=== PATIENT | male | born 1940 | race Caucasian/White ===

== ENCOUNTER 2016-09-21 01:26 | Inpatient (IN) | payer MEDICARE, OTHER ==
[~2016-09-21] VITALS: Ht 172.7 cm; Wt 108.1 kg
[2016-09-21] MEDS ORDERED: ALLOPURINOL300 MG PO (02:21)
[2016-09-21] MEDS ORDERED: RIVASTIGMINE4.5 MG PO (02:21)
[2016-09-21] MEDS ORDERED: COUMADIN5 MG PO (02:23)
[2016-09-21] MEDS ORDERED: ESCITALOPRAM OX20 MG PO (02:24)
[2016-09-21] MEDS ORDERED: COREG25 MG PO (02:25)
[2016-09-21] MEDS ORDERED: ATORVASTATIN CA20 MG PO (02:25)
[2016-09-21] MEDS ORDERED: WARFARIN SODIUM5 MG PO (12:07)
[2016-09-21] MEDS ORDERED: VOLTAREN100 GM TOP (12:09)
--- NOTE | 2016-09-21 22:35 | EKG ---
[facility] [address] [facility] [place], [place] [address] Signed Normal sinus rhythm Normal ECG No previous ECGs available Confirmed by GREGG BACON MD ([id number]) on 09/21/2016 10:35:22 PM Electronically Signed By: GREGG BACON MD 09/21/16 2235 PATIENT NAME: ARTUR TOLLIVER Electrocardiogram DATE OF : 38 PHYSICIAN: GREGG BACON MD REPORT #: [id number] REPORT IS CONFIDENTIAL AND NOT TO BE RELEASED WITHOUT AUTHORIZATION
[2016-09-25] MEDS ORDERED: AUGMENTIN 500-1 EACH PO (21:05)
[2017-01-17] MEDS ORDERED: CIPRO500 MG PO (09:26)
== END 2016-09-26 12:35 | disposition home or self-care (01) | DRG 872 ==
LOC: ED 01:26 → MS 03:54
PROVIDERS: ADMIT Internal Medicine
DX: A41.51 Sepsis due to Escherichia coli [E. coli] (principal); I11.0 Hypertensive heart disease with heart failure; I50.9 Heart failure, unspecified; G47.33 Obstructive sleep apnea (adult) (pediatric); E78.5 Hyperlipidemia, unspecified; G31.83 Neurocognitive disorder with Lewy bodies; F02.80 Dementia in other diseases classified elsewhere, unspecified severity, without behavioral disturbance, psychotic disturbance, mood disturbance, and anxiety; F39 Unspecified mood [affective] disorder; Z95.2 Presence of prosthetic heart valve
CPT/HCPCS: 36415; 36600; 71010; 80048; 80053; 81001; 82607; 82728; 82746; 82803; 83540; 83605; 83735; 84100; 84466; 85025; 85045; 85610; 85651; 85730; 86140; 86431; 87040; 87077; 87186; 93005; 93010; 93306; 94660; 94760; 94762; J0690; J2543; J3475; J7030

== ENCOUNTER 2016-11-08 05:17 | Inpatient (IN) | payer MEDICARE, OTHER ==
[~2016-11-08] VITALS: Ht 172.7 cm; Wt 104.7 kg
[~2016-11-08 05:17] MED LIST: ALLOPURINOL300 MG PO; ATORVASTATIN CA20 MG PO; AUGMENTIN 500-1 EACH PO; COREG25 MG PO; COUMADIN5 MG PO; ESCITALOPRAM OX20 MG PO; RIVASTIGMINE4.5 MG PO; VOLTAREN100 GM TOP; WARFARIN SODIUM5 MG PO
--- OUTSIDE RECORDS SUMMARY | 2016-11-08 05:59 | XMS ---
Demographics + + + | Address | [address] | | | [address] [facility] | | | [place] [phone] | + + + | Preferred Language | Unknown | + + + | Marital Status | Unknown | + + + | Judaism Affiliation | Unknown | + + + | Race | Unknown | + + + | Ethnic Group | Unknown | + + + Author + + + | Author | [facility] | + + + | Organization | [facility] | + + + | Address | [address] | | | [place] [address] | + + + | Phone | | + + + Care Team Providers + + + + | Care Real Estate Assistant Name | Role | Phone | + + + + Unavailable | Unavailable | + + + + PROBLEMS +---------+ + + +--------+ + + | Type | Condition | ICD9-CM | [id number] | Onset | Condition | SNOMED | | | | Code | Code | Dates | Status | Code | +---------+ + + +--------+ + + | Problem | Essential | | I10 | | Active | [id number] | | | (primary) | | | | | | | | hypertensi | | | | | | | | on | | | | | | +---------+ + + +--------+ + + | Problem | Hyperlipid | | E78.5 | | Active | [id number] | | | emia | | | | | | +---------+ + + +--------+ + + ALLERGIES Unknown Allergies SOCIAL HISTORY No smoking Hx information available PLAN OF CARE VITAL SIGNS MEDICATIONS Unknown Medications RESULTS No Results PROCEDURES No Known procedures IMMUNIZATIONS No Known Immunizations"
--- OUTSIDE RECORDS SUMMARY | 2016-11-08 05:59 | XMS ---
Demographics + + + | Address | [address] | | | [address] [facility] | | | [place] [address] | + + + | Preferred Language | Unknown | + + + | Marital Status | Unknown | + + + | Methodist Affiliation | Unknown | + + + | Race | Unknown | + + + | Ethnic Group | Unknown | + + + Author + + + | Author | [facility] | + + + | Organization | [facility] | + + + | Address | [address] | | | [place] [address] | + + + | Phone | | + + + Care Team Providers + + + + | Care Morning Show Newscast Producer Name | Role | Phone | + + + + Unavailable | Unavailable | + + + + PROBLEMS +---------+ + + +--------+ + + | Type | Condition | ICD9-CM | [id number] | Onset | Condition | SNOMED | | | | Code | Code | Dates | Status | Code | +---------+ + + +--------+ + + | Problem | Essential | | I10 | | Active | [id number] | | | (primary) | | | | | | | | hypertensi | | | | | | | | on | | | | | | +---------+ + + +--------+ + + | Problem | Hyperlipid | | E78.5 | | Active | [id number] | | | emia | | | | | | +---------+ + + +--------+ + + ALLERGIES + + + + +--------+ | Substance | Reaction | Event Type | Date | Status | + + + + +--------+ | Gentamicin | Unknown | Drug Allergy | Oct, | Active | | Sulfate | | | | | + + + + +--------+ SOCIAL HISTORY No smoking Hx information available PLAN OF CARE + +---------+ | Activity | Details | + +---------+ +---+ | | +---+ + + + | Follow Up | 2 Months Reason:null | + + + VITAL SIGNS + + + + | Height | 64 in | 2016-10-07 | + + + + | Weight | 250 lbs | 2016-10-07 | + + + + | BMI | 42.91 kg/m2 | 2016-10-07 | + + + + | Heart Rate | 58 /min | 2016-10-07 | + + + + | Blood pressure systolic | 129 mm Hg | 2016-10-07 | + + + + | Blood pressure diastolic | 57 mm Hg | 2016-10-07 | + + + + MEDICATIONS + + + + +--------+ + +--------+ | Medicati | Instruct | Dosage | Frequenc | Start | End Date | Duration | Status | | on | ions | | y | Date | | | | + + + + +--------+ + +--------+ | Aspir-81 | | | | | | | Active | + + + + +--------+ + +--------+ | Allopuri | Orally | 1 tablet | 24h | | | | Active | | nol 300 | Once a | | | | | | | | MG | day | | | | | | | + + + + +--------+ + +--------+ | Carvedil | | | | | | | Active | | ol 25 MG | | | | | | | | + + + + +--------+ + +--------+ | Warfarin | | | | | | | Active | | Sodium | | | | | | | | | 5 MG | | | | | | | | + + + + +--------+ + +--------+ | Rivastig | | | | | | | Active | | mine 3 | | | | | | | | | mg | | | | | | | | + + + + +--------+ + +--------+ | Escitalo | | | | | | | Active | | pram | | | | | | | | | Oxalate | | | | | | | | | 10 MG | | | | | | | | + + + + +--------+ + +--------+ | Atorvast | | | | | | | Active | | atin | | | | | | | | | Calcium | | | | | | | | | 20 MG | | | | | | | | + + + + +--------+ + +--------+ RESULTS No Results PROCEDURES No Known procedures IMMUNIZATIONS No Known Immunizations"
--- OUTSIDE RECORDS SUMMARY | 2016-11-08 05:59 | XMS ---
Demographics + + + | Address | Unknown | | | [place] [address] | + + + | Preferred Language | Unknown | + + + | Marital Status | Unknown | + + + | Worship Affiliation | Unknown | + + + | Race | Unknown | + + + | Ethnic Group | Unknown | + + + Author + + + | Author | [facility] | + + + | Organization | [facility] | + + + | Address | [address] | | | [place] [address] | + + + | Phone | | + + + Care Team Providers + + + + | Care Calibration Tester Name | Role | Phone | + + + + Unavailable | Unavailable | + + + + PROBLEMS +---------+ + + +--------+ + + | Type | Condition | ICD9-CM | [id number] | Onset | Condition | SNOMED | | | | Code | Code | Dates | Status | Code | +---------+ + + +--------+ + + | Problem | Essential | | I10 | | Active | [id number] | | | (primary) | | | | | | | | hypertensi | | | | | | | | on | | | | | | +---------+ + + +--------+ + + | Problem | Hyperlipid | | E78.5 | | Active | [id number] | | | emia | | | | | | +---------+ + + +--------+ + + ALLERGIES Unknown Allergies SOCIAL HISTORY No smoking Hx information available PLAN OF CARE VITAL SIGNS MEDICATIONS Unknown Medications RESULTS No Results PROCEDURES No Known procedures IMMUNIZATIONS No Known Immunizations"
--- NOTE | 2016-11-08 08:27 | NUR ---
PT ARRIVED TO ROOM 129 VIA STRETCHER FROM ER. PT TRANSFERRED TO BED WITH 2 PERSON ASSIST. VITAL SIGNS TAKEN AND ASSESSMENT COMPLETED. PT ATE REG DIET WITHOUT PROBLEMS. DR. JOHN IN TO ASSESS PT. IN ROOM.
--- NOTE | 2016-11-08 09:28 | NUR ---
PT UP TO BSC WITH ONE PERSON ASSIST - HAD SMALL SOFT FORMED BM, TRANSFERRED TO BRENDA CHAIR WITH ONE PERSON ASSIST WITH CHAIR ALARM IN PLACE. ORAL CONTRAST 15MLS IN 20 OZ APPLE JUICE GIVEN PER ORDER IN PREPARATION FOR CT SCAN. PT BERT WELL. LAB HERE FOR STAT ORDERS PER DR. JOHN.
--- NOTE | 2016-11-08 10:04 | NUR ---
PROFESSIONAL HOUSING CONSULTANT HERE FOR LEFT LOWER EXTREMITY XRAY.
--- NOTE | 2016-11-08 12:16 | NUR ---
PT REMAINS IN BRENDA CHAIR WITH BED ALARM ON. ASSESSMENT COMPLETED - DENIES C/O AT THIS TIME. FEW FINE CRACKLES HEARD IN RIGHT LUNG BASE. PT ON RA WITH SATS 95%. PT STOOD TO VOID 450 MLS CLEAR YELLOW URINE. PT TRANSFERRED TO CT DEPT VIA BRENDA CHAIR WITH LEVEL VIAL INSPECTOR, Jessica CHEEK FOR CT OF LUNG/ABD/PELVIS.
--- NOTE | 2016-11-08 12:35 | NUR ---
PT RETURNED TO ROOM 129 VIA [facility] CHAIR - BERT CT WELL.
--- NOTE | 2016-11-08 13:17 | NUR ---
Patient up to bathroom, one person standby assist. Patient has a large formed bm and voids large amount to toilet. Patient does own rachel care. Patient back to chair, chair alarm on. Call light in reach. Patient is SOB with activity. Patient states he often feels that way at home.
--- NOTE | 2016-11-08 13:21 | NUR ---
Patient sitting up in chair eating cake.
--- NOTE | 2016-11-08 14:07 | NUR ---
PT SITTING IN CHAIR, WELCOMED ME IN. I HAD VISITED WITH PT'S SON IN [facility] HE WAS LEAVING. ESTELLA SEEMED TO BE HANDLING THIS LATEST HOSPITALIZATION OF HIS DAD APPROPRIATELY-FEELING OPTIMISTIC THAT HE CAN BE DC'D SOON. GOOD VISIT WITH PT, HE REQUESTED PRAYER. WILL FOLLOW NEEDED
[2016-11-08] MEDS ORDERED: ADULT LOW DOSE81 MG PO (15:02)
--- NOTE | 2016-11-08 15:04 | NUR ---
PT AMBULATED TO BATHROOM WITH ONE PERSON ASSIST. VOIDED AND HAD SOFT NONFORMED BM. PT AMBULATED TO BED WITH ASSIST AND ULTRA SOUND TECH HERE FOR 2D ECHO. IN ROOM.
--- NOTE | 2016-11-08 15:14 | NUR ---
MED REC COMPLETE WITH BIMART REFILL HISTORY AND INTERVIEW.
--- NOTE | 2016-11-08 16:29 | NUR ---
PT SITTING IN BRENDA CHAIR VISITING WITH , STATES FEELING COLD, WARM BLANKET GIVEN, PT AFEBRILE. TEMP INCREASED TO 100.5 AFTER A FEW MINUTES.
--- NOTE | 2016-11-08 17:04 | NUR ---
PT NAUSEATED AND MEDICATED WITH ZOFRAN 4MG IV. DR. JOHN NOTIFIED OF INCREASED TEMP 101.2. BLOOD CULTURES ORDERED.
--- NOTE | 2016-11-08 17:36 | EKG ---
[facility] [address] [facility] [place] [address] Signed Normal sinus rhythm Prolonged QT Abnormal ECG When compared with ECG of 21-SEP-2016 01:42, QT has lengthened Confirmed by RAQUEL JOHN MD ([id number]) on 11/08/2016 5:36:06 PM Electronically Signed By: RAQUEL JOHN MD 11/08/16 1736 PATIENT NAME: UNRULYARTUR MAURA Electrocardiogram DATE OF : 38 PHYSICIAN: RAQUEL JOHN MD REPORT #: [id number] REPORT IS CONFIDENTIAL AND NOT TO BE RELEASED WITHOUT AUTHORIZATION
--- NOTE | 2016-11-08 17:37 | NUR ---
MEDICATED WITH TYLENOL 500 MG PO FOR ORAL TEMP 101.2. LAB HERE FOR BLOOD CULTURES X2 SITES. FAMILY IN ROOM. PT STATES FEELING SLIGHTLY BETTER, DENIES CHILLING AT THIS TIME.
--- NOTE | 2016-11-08 17:52 | NUR ---
UP TO BATHROOM WITH ONE PERSON ASSIST. VOIDED UNMEASURABLE AMT. BACK TO BED WITH HOB ELEVATED. VISITING WITH FAMILY. ORAL TEMP 101.4.
--- NOTE | 2016-11-08 19:40 | NUR ---
PT SHIFT REORT RECIVED FROM DAY SHIFT RN. PT LAYING IN BED ASKEED TO GET UP TO BATHROOM. ASSISTED PT TO BATHROOM. PT TOLERATED WELL. OTHER RN ASSISTING WITH CARE WELL. WILL CONTINUE TO MONITOR.
--- NOTE | 2016-11-08 20:00 | NUR ---
AMB TO BR, BERT WELL
--- NOTE | 2016-11-08 21:05 | NUR ---
UP TO CHAIR, FEEL LIKE CAN'T LAY DOWN ANY MORE. DECLINES TO BRUSH TEETH. GIVEN CRACKERS AND DECAF COFFEE.
--- NOTE | 2016-11-08 21:30 | NUR ---
PT SHIFT ASSESSMENT COMPLETED. PT RESTING IN CHAIR ASSISTED BACK TO BED AFTER USING BATHROOM. PT TOLERATED WELL. WILL ENCOURAGE REST AT THIS TIME. BED ALARM ON. CALL LIGHT IN REACH. WILL CONITNUE TO CLSOELY MONITOR.
--- NOTE | 2016-11-08 22:06 | NUR ---
PT RESTING IN BED AT THIS TIME. WILL CONTINUE TO MONITOR.
--- NOTE | 2016-11-08 22:31 | NUR ---
RECHECKED PT TEMP. TEMP IS CURRENTLY 99.5. PT IS RESTING AT THIS TIME. WILL CHECK AGAIN AT MIDNIGHT AND SEE IF IT CONTINUES TO TREND DOWN. WILL GIVE PRN TYLENOL IF NEEDED.
--- NOTE | 2016-11-08 23:15 | NUR ---
PT CALLED TO GET UP TO THE BATHROOM. PT ASSISTED TO THE BATHROOM WITH TEAM ASSEMBLY LINE MACHINE OPERATOR AND BACK TO CHAIR. NO OTHER ISSUES AT THIS TIME. WILL CONTINUE TO MONITOR.
--- NOTE | 2016-11-08 23:45 | NUR ---
PT ASSISTED BACK TO BED WITH 1 PERSON ASSIST. PT TOLERATED WELL.
--- NOTE | 2016-11-09 00:09 | NUR ---
PT CALLED. PT UNSURE WHAT HE NEEDED. PT SAID MAYBE HE NEEDS TO GET UP. EDUCATED PT HE WAS JUST UP A FEW MINUTES AGO AND THAT IT IS THE MIDDLE OF THE NIGHT AND PT REALLY NEEDS SOME REST TO HELP GET BETTER. PT FORGOT HE HAD JUST BEEN UP. OTHER RN IN TO HELP READJUST PT IN BED WITH PILLOW SUPPORT TO SEE IF THIS WILL AID IN PT SLEEP. WILL CONTINUE TO MONITOR. CALL LIGHT IN REACH. BED ALARM ON.
--- NOTE | 2016-11-09 01:00 | NUR ---
CALLED MD TO UPDATE ABOUT PT BEING RESTLESS AND AWAKE SO FAR MOST OF THE NIGHT. PER MD GIVE ONE DOSE 1MG MELATONIN. WILL CONTINUE TO MONITOR.
--- NOTE | 2016-11-09 03:37 | NUR ---
PT RESTING IN CHAIR AT THIS TIME WITH CALL LIGHT IN LAP AND CHAIR ALARM ON. SINCE PT RECIVED MELATONIN. PT HAS BEEN ABLE TO REST BETTER. WILL CONTINUE TO CLOSELY MONITOR AT THIS TIME.
--- NOTE | 2016-11-09 05:14 | NUR ---
PT RESTING IN CHAIR. VITALS DONE. CIRCUS LABORER IN AT BEDSIDE. WILL CONTINUE TO MONTIOR.
--- NOTE | 2016-11-09 06:51 | NUR ---
ASSISTED PT UP TO BATHROOM. PT TOLERATED WELL. PT HAD MED BOWEL MOVEMENT. ASSISTED BACK TO CHAIR. CALL LIGHT IN HAND. CHAIR ALARM ON. WILL CONTINUE TO [facility].
--- NOTE | 2016-11-09 10:25 | NUR ---
PT AWAKE THIS A.M. IN BRENDA CHAIR. PT ATE SMALL BREAKFAST - STATES "I'M NOT TOO HUNGRY". ASSESSMENT COMPLETED, DR. JOHN IN AND TALKED WITH PT ABOUT TRANSFER TO A HIGHER LEVEL OF CARE D/T HIS REOCCURING SEPSIS AND QUESTIONABLE ECHO. SON IN ALSO AND DR. JOHN TALKED WITH HIM. DR. REDD ACCEPTED PT AT [facility], [facility],[place]. PT WILL BE TRANSFERRED VIA [facility]. 2 GM MG RIDER STARTED PER DR. RUFFIN.
--- NOTE | 2016-11-09 11:01 | NUR ---
PT TRANSFERRED TO [facility] [place] [facility].
--- NOTE | 2016-11-09 13:49 | NUR ---
PT BEING TRANSFERRED TO [facility] IN [place]. UNABLE TO FLY TO [place] BECAUSE OF FIRES, AND [facility] HAS NO BED SPACE. PT AND FAMILY SEEM OK WITH THIS. HAD PRAYER WITH PT, KELLY SORIA BY HIS SIDE. GAVE THEM LIFEFLIGHT PACKING LIST AND CALLED CHILD AND ADOLESCENT PSYCHOLOGIST AT [facility] TO FOLLOW UP WITH PT ONCE THERE. KELLY SORIA TRYING TO BE STRONG, BUT I CAN SENSE HE IS STRUGGLING. GOD BLESS THEM
[2017-01-17] MEDS ORDERED: CIPRO500 MG PO (09:26)
== END 2016-11-09 11:00 | disposition short-term general hospital (02) | DRG 314 ==
LOC: ED 05:17 → CCU 07:11
PROVIDERS: ADMIT Internal Medicine
DX: T82.6XXA Infection and inflammatory reaction due to cardiac valve prosthesis, initial encounter (principal); A41.51 Sepsis due to Escherichia coli [E. coli]; I71.02 Dissection of abdominal aorta; I33.0 Acute and subacute infective endocarditis; G47.33 Obstructive sleep apnea (adult) (pediatric); I11.0 Hypertensive heart disease with heart failure; I50.9 Heart failure, unspecified; E78.5 Hyperlipidemia, unspecified; G31.83 Neurocognitive disorder with Lewy bodies; F02.80 Dementia in other diseases classified elsewhere, unspecified severity, without behavioral disturbance, psychotic disturbance, mood disturbance, and anxiety; D48.62 Neoplasm of uncertain behavior of left breast; Y83.1 Surgical operation with implant of artificial internal device as the cause of abnormal reaction of the patient, or of later complication, without mention of misadventure at the time of the procedure; M25.572 Pain in left ankle and joints of left foot
CPT/HCPCS: 36415; 71010; 71260; 73590; 74177; 80053; 81001; 83605; 83735; 85025; 85610; 85730; 86431; 87040; 87077; 87186; 93005; 93010; 93306; J2405; J2543; J3370; J3475; J7030; J7060; J7120; Q9967

== ENCOUNTER 2017-05-17 08:37 | Day surgery (SDC) | payer MEDICARE, OTHER ==
[~2017-05-17] VITALS: Ht 172.7 cm; Wt 108.1 kg
[~2017-05-17 08:37] MED LIST changes: +ADULT LOW DOSE81 MG PO; +AMLODIPINE BESY10 MG PO; +CIPRO500 MG PO; +FISH OIL 1,0001 EAC2 NG; +FUROSEMIDE20 MG PO; +IRON18 MG PO
--- NOTE | 2017-05-17 11:04 | NUR ---
PT HAS APNEIC EPISODES WHILE SLEEPING IN DAY SURGERY. PT WILL WAKE TO RN VOICE AND QUICKLY FALLS BACK TO SLEEP. PT'S SPOUSE IS @ BS. CONTINUOUS PULSE OXIMETER IS IN PLACE. OXYGEN IS REMOVED AND PATIENT DOES DIP DOWN TO 88% MOMENTARILY AND QUICKLY RETURNS TO 98%
--- NOTE | 2017-05-17 11:52 | NUR ---
RAMAZICON GIVEN TO REVERSE THE EFFECTS OF THE VERSED GIVEN BY GLOBAL PRESIDENT. PATIENT WAKES QUICKLY AFTER RAMAZICON IS GIVEN AND HAT AND COAT ARE PUT ON BY HIM AND HE IS DC HOME W/SPOUSE AND VOLUNTEER.
== END 2017-05-17 11:52 | disposition home or self-care (01) ==
LOC: OPS 08:37 → DSVR 08:37 → OPS 09:45 → DS 10:00 → OPS 10:00
PROVIDERS: Ophthalmology
PROC: 08RK3JZ Replacement of Left Lens with Synthetic Substitute, Percutaneous Approach (ICD-10-PCS; principal; 2017-05-17 09:45)
DX: H25.12 Age-related nuclear cataract, left eye (principal); I10 Essential (primary) hypertension; E78.00 Pure hypercholesterolemia, unspecified; M19.90 Unspecified osteoarthritis, unspecified site; F32.9 Major depressive disorder, single episode, unspecified; G47.30 Sleep apnea, unspecified; Z99.89 Dependence on other enabling machines and devices; Z95.2 Presence of prosthetic heart valve; Z98.890 Other specified postprocedural states; Z79.82 Long term (current) use of aspirin; Z79.899 Other long term (current) drug therapy; Z79.01 Long term (current) use of anticoagulants

== ENCOUNTER 2017-11-20 10:06 | Emergency (ER) | payer MEDICARE ==
[~2017-11-20] VITALS: Ht 172.7 cm; Wt 108.1 kg
[2017-11-20] MEDS ORDERED: PRINIVIL5 MG PO (16:43)
--- NOTE | 2017-11-21 19:09 | EKG ---
[facility] [address] [facility] [place] [address] Signed Sinus bradycardia Otherwise normal ECG When compared with ECG of 08-NOV-2016 05:40, Vent. rate has decreased BY 44 BPM QT has shortened Confirmed by NORI AZAR DO ([id number]) on 11/21/2017 7:09:45 PM Electronically Signed By: NORI AZAR DO 11/21/17 1909 PATIENT NAME: CLEESTINELUISARTUR Electrocardiogram DATE OF : 38 PHYSICIAN: NORI AZAR DO REPORT #: [id number] REPORT IS CONFIDENTIAL AND NOT TO BE RELEASED WITHOUT AUTHORIZATION
== END 2017-11-20 16:58 | disposition home or self-care (01) ==
LOC: ED 10:06
DX: R07.89 Other chest pain (principal); M54.6 Pain in thoracic spine; I71.00 Dissection of unspecified site of aorta; N63.0 Unspecified lump in unspecified breast; F03.90 Unspecified dementia, unspecified severity, without behavioral disturbance, psychotic disturbance, mood disturbance, and anxiety; I10 Essential (primary) hypertension; Z79.899 Other long term (current) drug therapy; Z79.01 Long term (current) use of anticoagulants
CPT/HCPCS: 71045; 71275; 74174; 80053; 84484; 85025; 85610; 93005; 93010; 99285; Q9967

== ENCOUNTER 2017-11-24 12:07 | Day surgery (SDC) | payer MEDICARE ==
[~2017-11-24 12:07] MED LIST changes: +PRINIVIL5 MG PO
--- NOTE | 2017-11-24 17:33 | OR ---
[facility] [address] [place], [place] [address] Signed DATE OF OPERATION: 11/24/2017 SURGEON: Maliha Emmanuel MD PREOPERATIVE DIAGNOSES: 1. A 4 cm left breast mass, smooth margins on CT scan imaging. 2. Chronic anticoagulation with Coumadin. 3. Multiple medical problems. POSTOPERATIVE DIAGNOSES: 1. A 4 cm left breast mass, smooth margins on CT scan imaging. 2. Chronic anticoagulation with Coumadin. 3. Multiple medical problems. PROCEDURE(S) PERFORMED: Left breast mass core biopsy (biopsy gun biopsy). ANESTHESIA: 1% lidocaine, local. INDICATIONS: This 77-year-old white man is a patient of Dr. Theodore. He has numerous medical problems including chronic anticoagulation and a prior history of thoracic endograft placement. 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 He has obesity and other issues as well. He has a palpable mass of the left upper outer aspect of the breast and CT scan x2, which has shown the mass to be smooth margined, but distinct from surrounding soft tissue. A biopsy was recommended. Consideration has been made for reversing his anticoagulation, but given his underlying cause for anticoagulation including aortic valve replacement, he would need rather elaborate bridge therapy. I believe that he can tolerate a core biopsy of this lesion without the inconvenience of bridge therapy and with a likely reasonable similar risk of local bleeding or bruising. He and his understands the risks of bleeding, infection, failure of diagnosis, need for additional procedures and so forth, and wished to proceed. FINDINGS: The lesion was palpable and soft, it was at the 2 o'clock position in relation to the nipple. Six core biopsies were obtained. All the tissue was rather soft and I suspect Electronically Signed By: MALIHA EMMANUEL MD 11/24/17 1733 PATIENT NAME: ARTUR TOLLIVER OPERATIVE REPORT DATE OF : 38 REPORT #: [id number] PHYSICIAN: MALIHA EMMANUEL MD PCP: KELVIN THEODORE MD REPORT IS CONFIDENTIAL AND NOT TO BE RELEASED WITHOUT AUTHORIZATION [facility] [address] [place], [place] [address] Signed this lesion is benign. Pathology is pending. DESCRIPTION OF PROCEDURE: In the supine position the left areolar area and bulky tissue of the breast was prepared with a chlorhexidine solution and draped sterilely. A 1% lidocaine was injected locally. A small stab incision was made with an #11 blade, which showed no untoward bleeding. Using a 14-gauge biopsy gun device, multiple core biopsies were taken throughout the lesion as defined by palpation. The parenchyma of the chest wall and lesion were held away from the chest wall itself. The core biopsies were all adequate, they were soft and not typical of breast cancer, particularly. There was no untoward bleeding. Lengthy application of pressure of the biopsy site was undertaken to assure hemostasis. A Band-Aid applied. Blood Loss was minimal. MD JEN Spear/CHER /[id number] cc: Kelvin Theodore MD Copies: KELVIN THEODORE MD ~ Electronically Signed By: MALIHA EMMANUEL MD 11/24/17 1733 PATIENT NAME: ARTUR TOLLIVER OPERATIVE REPORT DATE OF : 38 REPORT #: [id number] PHYSICIAN: MALIHA EMMANUEL MD PCP: KELVIN THEODORE MD REPORT IS CONFIDENTIAL AND NOT TO BE RELEASED WITHOUT AUTHORIZATION
== END 2017-11-24 13:45 | disposition home or self-care (01) ==
LOC: DS 12:07 → EDSTATUS 13:00 → DS 13:00
PROC: 0HBU3ZX Excision of Left Breast, Percutaneous Approach, Diagnostic (ICD-10-PCS; principal; 2017-11-24)
DX: N63.21 Unspecified lump in the left breast, upper outer quadrant (principal); Z79.01 Long term (current) use of anticoagulants

== ENCOUNTER 2017-12-08 04:03 | Emergency (ER) | payer MEDICARE ==
[~2017-12-08] VITALS: Ht 172.7 cm; Wt 110.4 kg
[~2017-12-08 04:03] MED LIST changes: +LISINOPRIL10 MG PO
--- OUTSIDE RECORDS SUMMARY | 2017-12-08 04:08 | XMS ---
PreManage Notification: ARTUR TOLLIVER Security Wound Nurse Events No recent Security Events currently on file CRITERIA MET - [facility] - 2 Visits in 30 Days CARE PROVIDERS Mckinley Rivera MD Treatment Current PHONE: Unknown [facility] Current CARE [facility] PEPPER PHONE: Unknown Quique has no Care Guidelines for this patient. Malika VISIT COUNT (12 MO.) [address] [place] [address] TOTAL 2 NOTE: Visits indicate total known visits. 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
[2017-12-08] MEDS ORDERED: WARFARIN SODIU2.5 MG PO (04:16)
--- NOTE | 2017-12-08 12:29 | NUR ---
PT BROUGHT TO ER HIS IS SCHEDULED TO HAVE SCOPE. CHECKING ON PT AT 'S REQUEST. HE SAYS HE IS MUCH BETTER, AND WANTS SOMETHING TO EAT. PT IS NPO UNTIL DECISION IS MADE CONCERNING POSSIBLE TRANSFER. PT REQUESTED PRAYER, SON ESTELLA IS PRESENT. HE SAID HE WILL MEDICAL CARE EVALUATION SPECIALIST HIS MOTHER AFTER HER SCOPE. WILL CONTINUE TO CHECK ON PT NEEDED
--- NOTE | 2017-12-08 12:33 | NUR ---
PT IS TO GO TO [facility], PT ABLE TO HAVE SOMETHING TO EAT, WAITING ON GROUND TRANSPORT. AND SON BOTH IN RM ASLEEP, PT AWAKE. WILL CONTINUE TO FOLLOW NEEDED
--- NOTE | 2017-12-08 14:39 | EKG ---
[facility] [address] [facility] [address] [facility] [place], [place] [address] Signed Sinus bradycardia Otherwise normal ECG When compared with ECG of 20-NOV-2017 10:11, No significant change was found Confirmed by NORI AZAR DO ([id number]) on 12/08/2017 2:39:14 PM Electronically Signed By: NORI AZAR DO 12/08/17 1439 PATIENT NAME: UNRULYARTUR MAURA Electrocardiogram DATE OF : 38 PHYSICIAN: NORI AZAR DO REPORT #: [id number] REPORT IS CONFIDENTIAL AND NOT TO BE RELEASED WITHOUT AUTHORIZATION
== END 2017-12-08 14:46 | disposition short-term general hospital (02) ==
LOC: ED 04:03
DX: I71.2 Thoracic aortic aneurysm, without rupture (principal); F03.90 Unspecified dementia, unspecified severity, without behavioral disturbance, psychotic disturbance, mood disturbance, and anxiety; I10 Essential (primary) hypertension; F17.200 Nicotine dependence, unspecified, uncomplicated; Z88.8 Allergy status to other drugs, medicaments and biological substances; Z79.899 Other long term (current) drug therapy
CPT/HCPCS: 71045; 71260; 76705; 80053; 84484; 85025; 85610; 93005; 93010; 96374; 96375; 99285; 99406; J2270; J2405; J2550; Q9967

== ENCOUNTER 2019-01-29 15:23 | Observation (INO) | payer MEDICARE, OTHER ==
[~2019-01-29] VITALS: Ht 172.7 cm; Wt 107.5 kg
--- OUTSIDE RECORDS SUMMARY | ~2019-01-29 | XMS | Encounter Summary ---
Demographics + + + | Address | [address] | | | [place] [address] | + + + | Home Phone | | + + + | Preferred Language | Unknown | + + + | Marital Status | | + + + | Scientologist Affiliation | Unknown | + + + | Race | Unknown | + + + | Ethnic Group | Unknown | + + + Author + + + | Author | [facility] | | | and [place] | + + + | Organization | [facility] | | | and [place] | + + + | Address | Unknown | + + + | Phone | Unavailable | + + + Support + + +---------+ + | Name | Relationship | Address | Phone | + + +---------+ + | Ruby Loving | ECON | Unknown | | + + +---------+ + Care Team Providers + +------+ + | Care Floor Service Worker Spring Name | Role | Phone | + +------+ + | Kelvin Theodore MD | PCP | | + +------+ + Encounter Details +--------+ + + + + | Date | Type | Department | Care Team | Description | +--------+ + + + + | 04/17/ | Orders Only | [facility] | Conversion | | | 2018 | | CONVERSION DEP 888 | Transaction, | | | | | [facility]ARR [facility] | Provider Unknown | | | | | TIMI BUCKNER | [phone] | | | | | [phone] | | | | | | [phone] | | | +--------+ + + + + Social History + +-------+ +--------+------+ | Tobacco Use | Types | Packs/Day | Years | Date | | | | | Used | | + +-------+ +--------+------+ | Never Assessed | | | | | + +-------+ +--------+------+ + + + | Sex Assigned at | Date Recorded | | | | + + + | Not on file | | + + + + + + + | Job Start Date | Occupation | Industry | + + + + | Not on file | Not on file | Not on file | + + + + + + + + | Travel History | Travel Start | Travel End | + + + + + + | No recent travel history available. | + + documented as of this encounter Plan of Treatment +--------+---------+ + + + | Date | Type | Specialty | Care Team | Description | +--------+---------+ + + + | 05/14/ | Office | Cardiology | Marcin Lyon, | | | 2019 | Visit | | MD Tariq HARRIS | | | | | | [place] | | | | | | [phone] | | | | | | | | +--------+---------+ + + + documented as of this encounter Visit Diagnoses Not on filedocumented in this encounter"
--- OUTSIDE RECORDS SUMMARY | ~2019-01-29 | XMS | Encounter Summary ---
Demographics + + + | Address | [address] | | | [place] [address] | + + + | Home Phone | | + + + | Preferred Language | Unknown | + + + | Marital Status | | + + + | Alevism Affiliation | Unknown | + + + | Race | Unknown | + + + | Ethnic Group | Unknown | + + + Author + + + | Author | [facility] | | | and [place] | + + + | Organization | [facility] | | [...] Team Providers + +------+ + | Care Taxi Proprietor Name | Role | Phone | + [...] | | | | [place] | [phone] | | | | | [address] | | | | | | [phone] | | | +--------+ + + + [...] | | | | | [place] | | | | | | [address] | | | | | | | | +--------+---------+ + + + documented as of this encounter Visit Diagnoses Not on filedocumented in this encounter"
--- OUTSIDE RECORDS SUMMARY | ~2019-01-29 | XMS | Clinical Summary ---
Demographics + + + | Address | [address] | | | [place] [address] | + + + | Home Phone | | + + + | Preferred Language | Unknown | + + + | Marital Status | | + + + | Pentecostal Affiliation | Unknown | + + + | Race | Unknown | + + + | Ethnic Group | Unknown | + + + Author + + + | Author | [facility] | | | and [place] | + + + | Organization | [facility] | | | and [place] | + + + | Address | Unknown | + + + | Phone | Unavailable | + + + Support + + +---------+ + | Name | Relationship | Address | Phone | + + +---------+ + | Ruby Fabienne | ECON | Unknown | | + + +---------+ + Care Team Providers + +------+ + | Care Assembler Erector Name | Role | Phone | + +------+ + | Kelvin Theodore MD | PCP | | + +------+ + Allergies + + + + + + | Active Allergy | Reactions | Severity | Noted | Comments | | | | | Date | | + + + + + + | Cephalexin | Hives | | 11/15/19 | | | | | | 19 | | + + + + + + | Gentamicin | Hives | High | 12/20/20 | | | | | | 17 | | + + + + + + Medications + + + +---------+------+------+-------+ | Medication | Sig | Dispensed | Refills | Star | End | Statu | | | | | | t | Date | s | | | | | | Date | | | + + + +---------+------+------+-------+ | IRON PO | Take 28 mg by mouth | | 0 | 12/2 | | Activ | | | daily. | | | 0/20 | | e | | | | | | 17 | | | + + + +---------+------+------+-------+ | Probiotic Product | Take 1 tablet by | | 0 | 12/2 | | Activ | | (PROBIOTIC DAILY PO) | mouth daily. | | | 0/20 | | e | | | | | | 17 | | | + + + +---------+------+------+-------+ | aspirin 81 MG | Take 81 mg by mouth | | 0 | 12/2 | | Activ | | tablet | daily. | | | 0/20 | | e | | | | | | 17 | | | + + + +---------+------+------+-------+ | allopurinol | Take 300 mg by mouth | | 0 | 12/2 | | Activ | | (ZYLOPRIM) 300 mg | daily. | | | 0/20 | | e | | tablet | | | | 17 | | | + + + +---------+------+------+-------+ | warfarin | Take 5 mg by mouth | | 0 | 12/2 | | Activ | | (COUMADIN) 5 mg | daily. | | | 0/20 | | e | | tablet | | | | 17 | | | + + + +---------+------+------+-------+ | rivastigmine | Take 4.5 mg by mouth | | 0 | 12/2 | | Activ | | (EXELON) 4.5 MG | 2 (two) times | | | 0/20 | | e | | capsule | daily. | | | 17 | | | + + + +---------+------+------+-------+ | atorvaSTATin | Take 20 mg by mouth | | 0 | 12/2 | | Activ | | (LIPITOR) 20 mg | daily. | | | 0/20 | | e | | tablet | | | | 17 | | | + + + +---------+------+------+-------+ | carvedilol (COREG) | Take 12.5 mg by | | 0 | 12/2 | | Activ | | 25 mg tablet | mouth 2 (two) times | | | 0/20 | | e | | | daily with meals. | | | 17 | | | + + + +---------+------+------+-------+ | escitalopram | Take 10 mg by mouth | | 0 | 02/1 | | Activ | | (LEXAPRO) 10 mg | daily. | | | 2/20 | | e | | tablet | | | | 18 | | | + + + +---------+------+------+-------+ | finasteride | Take 5 mg by mouth | | 0 | 08/1 | | Activ | | (PROSCAR) 5 mg | daily. | | | 3/20 | | e | | tablet | | | | 19 | | | + + + +---------+------+------+-------+ | lisinopril | Take 20 mg by mouth | | 0 | | | Activ | | (PRINIVIL, ZESTRIL) | 2 times daily. | | | | | e | | 20 mg tablet | | | | | | | + + + +---------+------+------+-------+ | famotidine | Take 40 mg by mouth | | 0 | | | Activ | | (PEPCID) 40 MG | Daily. | | | | | e | | tablet | | | | | | | + + + +---------+------+------+-------+ Active Problems + + + | Problem | Noted Date | + + + | Dissection of thoracoabdominal aorta | 12/11/2017 | + + + + + | Overview: Last Assessment & Plan: A: h/o type A aortic | | dissection s/p repair and aortic valve replacement with a | | mechanical valve in 2006. Stable type B aortic dissection | | extending from the mid arch to aortic bifurcation, stable. P: | | Continue to control BP and follow. | + + + + + | History of dissecting abdominal aortic aneurysm repair | 02/22/2017 | + + + + + | Overview: Overview: | | With chronic dissection monitored by serial CT scans | + + + + + | Status post mechanical aortic valve replacement | 02/22/2017 | + + + | Morbid obesity | 02/22/2017 | + + + | Essential hypertension | 06/26/2015 | + + + | LUBNA on CPAP | 12/15/2014 | + + + Encounters +--------+ + + + + | Date | Type | Specialty | Care Team | Description | +--------+ + + + + | 11/14/ | Office | Cardiology | Marcin Lyon, | Dissection of | | 2019 | Visit | | MD | thoracoabdominal | | | | | | aorta (HCC) (Primary | | | | | | Dx); Essential | | | | | | hypertension; Status | | | | | | post mechanical | | | | | | aortic valve | | | | | | replacement; Morbid | | | | | | obesity (HCC); LUBNA | | | | | | on CPAP | +--------+ + + + + | 10/29/ | Telephone | Infectious Diseases | Kenny Garcia DO | Coordination Of Care | | 2018 | | | | (Dr. Tejada) | +--------+ + + + + from Last 3 Months Immunizations + + + + | Name | Administration Dates | Next Due | + + + + | PNEUMOCOCCAL PCV7 | 03/11/2014 | | | (PED) | | | + + + + | PNEUMOCOCCAL | 08/26/2014, 03/06/2005 | | | POLYSACCHARIDE | | | | 23-VALENT (PPSV23) | | | + + + + | TDAP, (ADOL/ADULT) | 08/11/2015, 01/20/2014 | | + + + + Family History + + +------+ + | Medical History | Relation | Name | Comments | + + +------+ + | Coronary artery | Mother | | | | disease | | | | + + +------+ + + +------+ + + | Relation | Name | Status | Comments | + +------+ + + | Father | | | [place] | | | | (Age | | | | | 73) | | + +------+ + + | Mother | | | hx of bypass | | | | (Age | | | | | 75) | | + +------+ + + | Mother | | | | + +------+ + + Social History + +-------+ +--------+------+ | Tobacco Use | Types | Packs/Day | Years | Date | | | | | Used | | + +-------+ +--------+------+ | Never Smoker | | | | | + +-------+ +--------+------+ + +---+---+---+ | Smokeless Tobacco: | | | | | Current User | | | | + +---+---+---+ + + +---------+ + | Alcohol Use | Drinks/Week | oz/Week | Comments | + + +---------+ + | Never | | | | + + +---------+ + + + + + | Alcohol Habits | Answer | Date Recorded | + + + + | How often do you have a drink containing | Never | 11/14/2018 | | alcohol? | | | + + + + | How many drinks containing alcohol do you | Not asked | | | have on a typical day when you are | | | | drinking? | | | + + + + | How often do you have six or more drinks on | Not asked | | | one occasion? | | | + + + + + + + | Sex Assigned at [...] recent travel history available. | + + Last Filed Vital Signs + + + + + | Vital Sign | Reading | Time Taken | Comments | + + + + + | Blood Pressure | 120/44 | 11/14/2018 9:35 AM | | | | | PDT | | + + + + + | Pulse | 58 | 11/14/2018 9:35 AM | | | | | PDT | | + + + + + | Temperature | 37.4 C (99.4 F) | 10/16/2018 3:05 PM | | | | | PDT | | + + + + + | Respiratory Rate | 16 | 10/16/2018 3:05 PM | | | | | PDT | | + + + + + | Oxygen Saturation | 94% | 11/14/2018 9:35 AM | | | | | PDT | | + + + + + | Inhaled Oxygen | - | - | | | Concentration | | | | + + + + + | Weight | 109.4 kg (241 lb 1.6 | 11/14/2018 9:35 AM | | | | oz) | PDT | | + + + + + | Height | 172.7 cm (5' 8") | 05/09/2018 11:19 AM | | | | | PST | | + + + + + | Body Mass Index | 36.66 | 05/09/2018 11:19 AM | | | | | PST | | + + + + + Plan of Treatment +--------+---------+ + + + | Date | Type | Specialty | Care Team | Description | +--------+---------+ + + + | 05/14/ Office | Cardiology | Marcin Lyon, | | | 2019 | Visit | | MD Tariq [place] | | | | | | [place], [place] | | | | | | [address] | | | | | | | | +--------+---------+ + + + + + + + + | Health Maintenance | Due Date | Last Done | Comments | + + + + + | Vaccine: Zoster (1 | | | | | of 2) | 0 | | | + + + + + | Vaccine: | | 08/26/2014, 03/06/2005 | | | Pneumococcal 65+ (2 | 6 | | | | of 2 - PCV13) | | | | + + + + + | Adult Annual | | | | | Wellness Visit | 9 | | | + + + + + | Vaccine: Influenza | | | | | (#1) | 9 | | | + + + + + | Vaccine: | | 08/11/2015, 01/20/2014 | | | Dtap/Tdap/Td (3 - | 6 | | | | Td) | | | | + + + + + Results Not on filefrom Last 3 Months Insurance + +--------+ +--------+ +---------+--------+ | Payer | Benefi | Subscriber | Effect | Phone | Address | Type | | | t Plan | ID | miguel angel | | | | | | / | | Dates | | | | | | Group | | | | | | + +--------+ +--------+ +---------+--------+ | MEDICARE | MEDICA | [id number] | 04/06/19 | [phone] | | Medica | | | RE | | 05-Pre | 5 | | re | | | PART A | | sent | | | | | | AND B | | | | | | + +--------+ +--------+ +---------+--------+ | [employer] | [employer] | [id number] | 06/05/19 | | | Indemn | | | GARZA | | 18-Pre | | | ity | | | LIFE | | sent | | | | | | MDCR | | | | | | | | SUPPL | | | | | | + +--------+ +--------+ +---------+--------+ + +--------+ +--------+ + + | Guarantor Name | Accoun | Relation to | Date | Phone | Billing Address | | | t Type | Patient | of | | | | | | | | | | + +--------+ +--------+ + + | Daniel Loving | Person | 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
--- OUTSIDE RECORDS SUMMARY | ~2019-01-29 | XMS | Encounter Summary ---
Demographics + + + | Address | [address] | | | [place] [address] | + + + | Home Phone | | + + + | Preferred Language | Unknown | + + + | Marital Status | | + + + | Samaritan Affiliation | Unknown | + + + | Race | Unknown | + + + | Ethnic Group | Unknown | + + + Author + + + | Author | [facility] | | | and [place] | + + + | Organization | [facility] | | | [...] Team Providers + +------+ + | Care Primer Inspector Name | Role | Phone | + +------+ + | Kelvin Theodore MD | PCP | | + +------+ + Encounter Details +--------+ + + + + | Date | Type | Department | Care Team | Description | +--------+ + + + + | 04/17/ | Orders Only | [facility] | Conversion | | | 2018 | | INFECTIOUS DISEASE | Transaction, | | | | | [address] | Provider Unknown | | | | | [place] | [phone] | | | | | [address] | | | | | | [phone] | | | +--------+ + + + [...] [place] | | | | | | [place] | | | | | | [address] | | | | | | | | +--------+---------+ + + + documented as of this encounter Procedures + +--------+ + + + | Procedure Name | Priori | Date/Time | Associated Diagnosis | Comments | | | ty | | | | + +--------+ + + + | CULTURE, BLOOD, 2ND | Routin | 04/17/2017 | | Results for this | | SPECIMEN (NON-ORD) | e | 12:00 AM | | procedure are in the | | | | PST | | results section. | + +--------+ + + + | CULTURE, BLOOD | Routin | 04/17/2017 | | Results for this | | | e | 12:00 AM | | procedure are in the | | | | PST | | results section. | + +--------+ + + + documented in this encounter Results Culture, Blood, 2nd Specimen (04/17/2017 12:00 AM PST) + + | Specimen | + + | Blood specimen | | (specimen) | + + + + + | Narrative | Performed At | + + + | Blood Culture, Routine | EXTERNAL LAB | + + + + +---------+ + + | Performing | Address | City/State/Zipcode | Phone Number | | Organization | | | | + +---------+ + + | EXTERNAL LAB | | | | + +---------+ + + Culture, Blood (04/17/2017 12:00 AM PST) + + | Specimen | + + | Blood specimen | | (specimen) | + + + + + | Narrative | Performed At | + + + | Blood Culture, Routine | EXTERNAL LAB | + + + + +---------+ + + | Performing | Address | City/State/Zipcode | Phone Number | | Organization | | | | + +---------+ + + | EXTERNAL LAB | | | | + +---------+ + + documented in this encounter Visit Diagnoses Not on filedocumented in this encounter"
--- OUTSIDE RECORDS SUMMARY | ~2019-01-29 | XMS | Clinical Summary ---
Demographics + + + | Address | [address] | | | [place] [address] | + + + | Home Phone | | + + + | Preferred Language | Unknown | + + + | Marital Status | | + + + | Moravian Affiliation | Unknown | + + + | Race | Unknown | + + + | Ethnic Group | Unknown | + + + Author + + + | Author | [facility] | | | and [place] | + + + | Organization | [facility] | | | [...] Team Providers + +------+ + | Care Jitney Driver Name | Role | Phone | + [...] + + | Father | | | [place] | | | | (Age | | [...] | | | | | [place], [place] | | | | | | [address] | | | | | | | [...] +--------+ +---------+--------+ | MEDICARE | MED[employer] | [id number] | 04/06/19 | [phone] | | Medica | | | RE | | 05-Pre | 5 | | re | | | PART A | | sent | | | | | | AND B | | | | | | + +--------+ +--------+ +---------+--------+ | [employer] | [employer] | [id number] | 06/05/19 | | | Indemn | [...] | [birth year] | | [address]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
--- OUTSIDE RECORDS SUMMARY | ~2019-01-29 | XMS | Encounter Summary ---
Demographics + + + | Address | [address] | | | [place] [address] | + + + | Home Phone | | + + + | Preferred Language | Unknown | + + + | Marital Status | | + + + | Pentecostalism Affiliation | Unknown | + + + | Race | Unknown | + + + | Ethnic Group | Unknown | + + + Author + + + | Author | [facility] | | | and [place] | + + + | Organization | [facility] | | | [...] Team Providers + +------+ + | Care Banana Carrier Name | Role | Phone | + +------+ + | Kelvin Theodore MD | PCP | | + +------+ + Reason for Visit + + + | Reason | Comments | + + + | Follow-up | 6 mo | + + + Encounter Details +--------+---------+ + + + | Date | Type | Department | Care Team | Description | +--------+---------+ + + + | 11/14/ | Office | [facility] | Marcin Jon, | Dissection of | | 2019 | Visit | [facility] | [address] | thoracoabdominal | | | | [address] | [place], [place] | aorta (HCC) (Primary | | | | [address] [place] | [id number] | Dx); Essential | | | | [place] | | hypertension; Status | | | | [address] | | post mechanical | | | | [phone] | | aortic valve | | | | | | replacement; Morbid | | | | | | obesity (HCC); LUBNA | | | | | | on CPAP | +--------+---------+ + + + Social History + +-------+ [...] + + documented as of this encounter Last Filed Vital Signs + + + [...] + + + + | Temperature | - | - | | + + + + + | Respiratory Rate | - | - | | + + + + + [...] + + + + | Height | - | - | | + + + + + | Body Mass Index | 36.66 | 05/09/2018 11:19 AM | | | | | PST | | + + + + + documented in this encounter Progress Notes Marcin Jon MD - 11/14/2018 9:45 AM PDTFormatting of this note might be different f rom the original. Date of visit: 11/14/2018 Primary Care Physician: Kelvin Theodore MD CHIEF COMPLAINT: Chief Complaint Patient presents with Follow-up 6 mo HISTORY OF PRESENT ILLNESS: Daniel is 78 y.o. here for follow-up visit. Denies any chest pain or shortness of breath continues to modestly active without cardiac l imitation. Weight has been stable no lower extremity edema or orthopnea. Had another bout of infection, admitted to [facility] on 29 September 2018, transfer red to [facility] in [place]. Had gram-negative bacteremia that was treated with antibiot ics. Source was thought to be gastrointestinal. Previously evaluated in [facility] in Jan 2018 secondary to recurrent upper right quadrant and chest pain pressure. Was taken to [facility] where he was found to have cholelithiasis and cholecystiti s, he did have cholecystectomy. His surgery was complicated with GI bleed and he had to have blood transfusion. Also he had to have ERCP, bile duct stenting and removal. Overall he made reasonable recovery. Denies any recurrent symptoms. In November 2016 had perforated bowel and ended with Escherichia coli and Enterobacter carolann teremia. Was treated with IV antibiotics with a PICC line. At this time denies any fever or chills. Has shortness of breath on modest exertion. Has history of ascending aorta aneurysm and dissection which was repaired with mechanical a ortic valve replacement in 2006. History of hypertension and sleep apnea on CPAP. Past medical history, SH, FH, and medications were reviewed in the chart. Medications: Outpatient Encounter Medications as of 11/14/2018 Medication Sig Dispense Refill allopurinol (ZYLOPRIM) 300 mg tablet Take 300 mg by mouth daily. aspirin 81 MG tablet Take 81 mg by mouth daily. atorvaSTATin (LIPITOR) 20 mg tablet Take 20 mg by mouth daily. carvedilol (COREG) 25 mg tablet Take 12.5 mg by mouth 2 (two) times daily with meals. escitalopram (LEXAPRO) 10 mg tablet Take 10 mg by mouth daily. famotidine (PEPCID) 40 MG tablet Take 40 mg by mouth Daily. finasteride (PROSCAR) 5 mg tablet Take 5 mg by mouth daily. IRON PO Take 28 mg by mouth daily. [DISCONTINUED] lisinopril (PRINIVIL, ZESTRIL) 10 mg tablet TAKE ONE TABLET BY MOUTH RIN DAY (Patient not taking: Reported on 11/14/2018) 60 tablet 2 lisinopril (PRINIVIL, ZESTRIL) 20 mg tablet Take 20 mg by mouth 2 times daily. Probiotic Product (PROBIOTIC DAILY PO) Take 1 tablet by mouth daily. rivastigmine (EXELON) 4.5 MG capsule Take 4.5 mg by mouth 2 (two) times daily. warfarin (COUMADIN) 5 mg tablet Take 5 mg by mouth daily. No facility-administered encounter medications on file as of 11/14/2018. Allergies Allergies Allergen Reactions Gentamicin Hives Cephalexin Hives REVIEW OF SYSTEMS: Constitutional: Positive for fatigue. No fever, chills, and rigors. No report of weight ch luciano. HEENT: Negative for nosebleeds, ear discharge, nasal congestion or soar throat. Eyes: Negative for visual disturbance, redness, or secretion. Respiratory: Negative for cough, sputum production, hemoptysis, wheezing. Cardiovascular: As HPI. Gastrointestinal: Negative for nausea, vomiting, diarrhea, abdominal pain and blood in stoo l. Genitourinary: Negative for dysuria or hematuria. Musculoskeletal: Chronic arthritic pain. Skin: Negative for rash. Neurological: Negative for dizziness. No numbness. No recent falls. No slurred speech. Hematological: No significant bruising. Psychiatric/Behavioral: No depression or anxiety. PHYSICAL EXAM Vital Signs: BP 120/44 | Pulse 58 | Wt 109.4 kg (241 lb 1.6 oz) | SpO2 94% | BMI 36.66 kg/m GENERAL APPEARANCE: Alert, oriented, cooperative, no distress, appears stated age. HEENT: Extraocular movements were intact. No jaundice. Pupiles round and reactive. NECK: No JVD, lymphadenopathy. Carotid upstrokes normal. No carotid bruit heard. CARDIAC: Regular rhythm and rate. There is normal S1 and S2. No galop. No murmur. CHEST: Normal bilateral symmetrical chest excursion.ackles or wheezing. No evidence of dull ness. ABDOMEN: Soft.No tenderness or guarding. No palpable organs. Active bowel sounds. EXTREMITIES: No lower extremities edema, cyanosis or clubbing. NEURO: Alert and oriented times three with no focal deficit. Cranial nerves are grossly no rmal. SKIN: Warm and dry. No rash. Psych: Normal affect and mood. DATA 09/29/2018 WBC 7.0, hemoglobin 12.6, platelets 124, sodium 136, potassium 4.0, chloride 102, bicarb 26 , BUN 21, creatinine 1.09. GFR 65, lactic acid 1.3, calcium 9.3. AST 21, ALT 22, alk phos 116. 04/20/2018 WBC 4.9, hemoglobin 11.0, platelets 167, MCV 77.6. Cholesterol 92, HDL 29, LDL 45, triglyce rides 88. AST 15, AST 16, alk phos 137, sodium 137, potassium 3.9, chloride 103, bicarbonate 27, BUN 18, creatinine 0.79. No results found for: NA, K, CO2, BUN, LABCREA, CALCIUM, MG No results found for: WBC, HGB, HCT, MCV No results found for: CHOL, TRIG, HDL, LDLEX, GLUF, TSH EK11/20/2017 From [facility] showed sinus bradycardia otherwise normal EKG. Last Echo: 10/03/2018 Reported from [facility] in [place]. Normal LV size and function EF 70%. Moder ate left atrial enlargement. Mechanical aortic valve and placed with a mean gradient of 15 mmHg. Reported area which is likely reliable 1.06 cm. Trace perivalvular leak mild pulmonary hyp ertension. 11/08/2016 Reported as normal LV size and hyperdynamic systolic function. Mild left ventricular hypert rophy. EF more than 70%. Mechanical aortic valve with mean gradient of 18 mmHg. Previous echo and September 2016 reported mean gradient of 14 mmHg. Echo 11/10/2016 Reported as Normal LV size with moderate left ventricular hypertrophy EF 65%. Mildly dilate d RV with normal systolic function. Mechanical aortic valve with normal function. HENRY 11/11/2016 Reported with normal systolic function EF 55-60%. Mechanical aortic valve was seated with m ild perivalvular regurgitation. Mild MR and mild TR. Last stress test: Last cath: Carotid US: AAA screening: Lower extremity US: OP:2006 Dissection of the aorta status post repair with AVR [address] [facility] mechanical valve[address] Chest 04/04/2018 [facility] dissection that begins beyond innominate artery the proximal arch that continues andrew n to the aortic bifurcation. Dissected or temperatures 50 mm distal to the arch. Proximal descending 44 mm. 11/20/2017 Compared to November 2016. Chronic endograft repair previous type A dissection. Stable at proximal descending aorta me asuring 5.6 cm. 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 Dissection terminates at the level of the iliac bifurcations. ASSESSMENT & PLAN Patient is 78 y.o. with complex past medical history and the following medical problems. 1. History of type A dissection extending to the aortic bifurcation stable from previous . Follows up with cardiothoracic surgery in [place]. 2. Hypertension controlled blood pressure. 3. Recurrent bacteremia 4. Asymptomatic bradycardia. 5. Recurrent bacteremia, gram-negative bacteria. 6. History of aortic dissection states post repair and mechanical aortic involvement replac ement. 7. Obstructive sleep apnea on CPAP. 8. Obesity. 9. Microcytic hypochromic anemia Recommendations: Reviewed records from recent hospitalization. CT of the chest stable measurement however dissection includes left renal artery. At this time will continue with anticoagulation with warfarin. Continue with carvedilol, statin therapy. Carvedilol currently 12.5 mg bid. Lisinopril currently 20 mg twice daily. Continue with aspirin given the mechanical aortic valve. We will continue with CT scan annual evaluations. We will continue to follow-up with [facility] in [facility]. Discussed in length with the patient weight loss and blood pressure monitoring. Thank you for allowing me to participate in the care of this patient. *This report has been prepared using a voice recognition system. The report was reviewed fo r accuracy, however, sound-alike word errors, addition and/or deletions may occur. If there is any question about this report please contact me. Marcin Jon MD, MPH A M PDTdocumented in this encounter Plan of Treatment +--------+---------+ + + + | Date | Type | Specialty | Care Team | Description | +--------+---------+ + + + | 05/14/ | Office | Cardiology | Marcni Jon, | | | 2019 | Visit | | MD Tariq HARRIS | | | | | | [place] | | | | | | [id number] | | | | | | | | +--------+---------+ + + + documented as of this encounter Procedures + +--------+ + + + | Procedure Name | Priori | Date/Time | Associated Diagnosis | Comments | | | ty | | | | + +--------+ + + + | LABS - EXTERNAL SCAN | | 10/11/2018 | | Results for this | | | | 12:00 AM | | procedure are in the | | | | PDT | | results section. | + +--------+ + + + documented in this encounter Results LABS - EXTERNAL SCAN (10/11/2018 12:00 AM PDT) + + + | Narrative | Performed At | + + + | Ordered by an | | | unspecified provider. | | + + + documented in this encounter Visit Diagnoses + + | Diagnosis | + + | Dissection of thoracoabdominal aorta (HCC) - Primary Dissection of aorta, | | thoracoabdominal | + + | Essential hypertension Unspecified essential hypertension | + + | Status post mechanical aortic valve replacement | + + | Morbid obesity (HCC) Morbid obesity | + + | LUBNA on CPAP Obstructive sleep apnea (adult) (pediatric) | + + documented in this encounter"
--- OUTSIDE RECORDS SUMMARY | ~2019-01-29 | XMS | Encounter Summary ---
Demographics + + + | Address | [address] | | | [place] [address] | + + + | Home Phone | | + + + | Preferred Language | Unknown | + + + | Marital Status | | + + + | Gnosticism Affiliation | Unknown | + + + | Race | Unknown | + + + | Ethnic Group | Unknown | + + + Author + + + | Author | [facility] | | | and [place] | + + + | Organization | [facility] | | | and [place] | + + + | Address | Unknown | + + + | Phone | Unavailable | + + + Support + + +---------+ + | Name | Relationship | Address | Phone | + + +---------+ + | Ruby Pereaira | ECON | Unknown | | + + +---------+ + Care Team Providers + +------+ + | Care General Manager In Training Name | Role | Phone | + +------+ + | Kelvin Theodore MD | PCP | | + +------+ + Encounter Details +--------+ + + + + | Date | Type | Department | Care Team | Description | +--------+ + + + + | 10/01/ | Orders Only | [facility] | [place], | | | 2019 | | CONVERSION [address] | [address] | | | | | [place] | [place] | | | | | [place], [place] | [address] | | | | | [address] | | | | | | [phone] | | | +--------+ + + + [...] [place] | | | | | | [address]1983 | | | | | | | | +--------+---------+ + + + documented as of this encounter Procedures + +--------+ + + + | Procedure Name | Priori | Date/Time | Associated Diagnosis | Comments | | | ty | | | | + +--------+ + + + | ECHO INTERPRETATION | Routin | 10/01/2018 | | Results for this | | OF OUTSIDE FILMS | e | 12:23 PM | | procedure are in the | | | | PDT | | results section. | + +--------+ + + + documented in this encounter Results ECHO Interpretation of Outside Films (10/01/2018 12:23 PM PDT) + + | Specimen | + + | | + + + + + | Impressions | Performed At | + + + | 1. The left ventricle is normal in size with normal systolic | | | function EF 60-65%. 2. The right ventricle is normal in size and | | | function. 3. Normally functioning mechanical aortic prosthetic valve, | | | St Aleks 25 mm. 4. There is no pericardial effusion. 5. Limited | | | views, if clinically indicated trasnesophageal echocardiogram is | | | recommended. | | + + + + + + | Narrative | Performed At | + + + | Patient Name: Daniel Loving Date of : 1940 | | | Performing Physician: Marcin Lyon | | | | | | INDICATIONS Bacteremia, AVR mechanical CONCLUSIONS | | | 1. The left ventricle is normal in size with normal | | | systolic function EF 60-65%. 2. The right ventricle is normal in size | | | and function. 3. Normally functioning mechanical aortic prosthetic | | | valve, St Aleks 25 mm. 4. There is no pericardial effusion. 5. | | | Limited views, if clinically indicated trasnesophageal echocardiogram | | | is recommended. FINDINGS -------- ECG rhythm: Sinus rhythm. ECG | | | rhythm: Resting bradycardia (HR<60bpm). Study: A 2-dimensional | | | transthoracic echocardiogram with m-mode, spectral and color flow | | | Doppler was perfomed. Study: This was a technically adequate study. | | | Left Ventricle: Overall left ventricular systolic function is normal | | | with, an EF between 60 - 65 %. Left Ventricle: The left ventricle | | | cavity size is normal. Left Ventricle: There is mild concentric left | | | ventricular hypertrophy. Left Ventricle: No regional wall motion | | | abnormalities. Right Ventricle: The right ventricle is normal in size | | | and function. Left Atrium: The left atrium is normal in size. Right | | | Atrium: The right atrium is mildly enlarged. Aortic Valve: There is | | | no evidence of aortic regurgitation. Aortic Valve: Normally | | | functioning mechanical aortic prosthetic valve. Aortic Valve: | | | Peak/mean gradient across the valve is 36.09mmHg/18.67mmHg. Aortic | | | Valve: S/P AVR. Mitral Valve: There is trace mitral regurgitation. | | | Mitral Valve: Moderate mitral annular calcification present. | | | Tricuspid Valve: The tricuspid valve appears structurally normal. | | | Tricuspid Valve: Trace tricuspid regurgitation present. Tricuspid | | | Valve: There is mild pulmonary hypertension. Tricuspid Valve: The | | | right ventricular systolic pressure (pulmonary artery systolic | | | pressure), as measured by Doppler, is 38.86mmHg. Pulmonic Valve: The | | | pulmonic valve was not well visualized. Pericardium: There is no | | | pericardial effusion. Pericardium: No pleural effusion seen. | | | IVC/Hepatic Veins: The IVC is normal size (1.5-2.5cm) and collapses | | | >50% with sniff, consistent with central venous pressures of 5-10mmHg. | | | Aorta: Ascending aorta not well seen. General comments: Limited | | | views, if clinically indicated trasnesophageal echocardiogram is | | | recommended. MEASUREMENTS Ao sinus: 3.80 cm Ao | | | st junct: 3.35 cm IVC: 1.68 cm LA Major: 5.75 cm | | | EDV(Teich): 115.92 ml IVSd: 1.25 cm LVIDd: 4.95 cm LVPWd: | | | 1.32 cm LVOT Area: 3.70 cm2 LVOT Diam: 2.17 cm %FS: | | | 41.78 % EF(Teich): 72.54 % ESV(Teich): 31.83 ml LVIDs: | | | 2.88 cm SV(Teich): 84.09 ml RA Major: 5.61 cm RV Major: | | | 8.46 cm RV Minor: 3.21 cm RVIDd: 2.87 cm LVEF MOD A2C: | | | 70.43 % SV MOD A2C: 65.44 ml LVEF MOD A4C: 78.14 % SV MOD | | | A4C: 95.06 ml EF Biplane: 73.78 % LVEDV MOD BP: 105.74 ml | | | LVESV MOD BP: 27.72 ml LVEDV MOD A2C: 92.90 ml LVLd A2C: | | | 8.84 cm LVEDV MOD A4C: 121.64 ml LVLd A4C: 8.88 cm LVESV MOD | | | A2C: 27.46 ml LVLs A2C: 7.33 cm LVESV MOD A4C: 26.58 ml | | | LVLs A4C: 6.95 cm LAESV(A-L): 66.42 ml LAESV Index (A-L): | | | 30.19 ml/m2 LAAs A2C: 22.57 cm2 LAESV A-L A2C: 74.44 ml LALs | | | A2C: 5.81 cm LAAs A4C: 20.14 cm2 LAESV A-L A4C: 58.52 ml | | | LALs A4C: 5.88 cm RAAs: 19.72 cm2 RAESV A-L: 54.80 ml | | | RAESV MOD: 54.78 ml RALs: 6.02 cm TAPSE: 2.96 cm AV maxPG: | | | 36.09 mmHg AV meanP.67 mmHg AV Vmax: 3.00 m/s AV | | | Vmean: 1.98 m/s AV VTI: 66.16 cm GARETT Vmax: 1.39 cm2 GARETT | | | (VTI): 1.70 cm2 AVAI Vmax: 0.00 cm2/m2 AVAI (VTI): 0.00 | | | cm2/m2 LVOT maxP.10 mmHg LVOT meanP.48 mmHg LVSI | | | Dopp: 51.31 ml/m2 LVSV Dopp: 112.89 ml LVOT Vmax: 1.12 m/s | | | LVOT Vmean: 0.72 m/s LVOT VTI: 30.45 cm MV A Chad: 1.30 m/s | | | MV Dec Vilas: 5.24 m/s2 MV DecT: 314.05 ms MV E Chad: 1.64 | | | m/s MV E/A Ratio: 1.25 MV PHT: 91.07 ms MVA By PHT: 2.41 | | | cm2 Septal e': 0.05 m/s Septal E/e': 30.11 Lateral e': | | | 0.06 m/s Lateral E/e': 24.09 RAP: 5 mmHg RVSP: 38.85 mmHg | | | TR maxP.85 mmHg TR Vmax: 2.90 m/s RV s': 0.14 m/s | | | Hospital Administrative Assistant: Authenticated by: Marcin Lyon Report Date/Time: | | | 10-01-2018 17:15:46 | | + + + + + | Procedure Note | + + | Perez, Rad Conversion - 10/25/2018 1:31 PM PDT Patient Name: Giorgio Loving of | | : 1940 Performing Physician: Marcin | | Sonali INDICATIONS------ | | -----Bacteremia, AVR mechanical CONCLUSIONS 1. The left ventricle is normal in | | size with normal systolic function EF 60-65%.2. The right ventricle is normal in size | | and function.3. Normally functioning mechanical aortic prosthetic valve, St Aleks 25 | | mm.4. There is no pericardial effusion.5. Limited views, if clinically indicated | | trasnesophageal echocardiogram is recommended. FINDINGS--------ECG rhythm: Sinus | | rhythm.ECG rhythm: Resting bradycardia (HR<60bpm).Study: A 2-dimensional transthoracic | | echocardiogram with m-mode, spectral and color flow Doppler was perfomed.Study: This was | | a technically adequate study.Left Ventricle: Overall left ventricular systolic function | | is normal with, an EF between 60 - 65 %.Left Ventricle: The left ventricle cavity size | | is normal.Left Ventricle: There is mild concentric left ventricular hypertrophy.Left | | Ventricle: No regional wall motion abnormalities.Right Ventricle: The right ventricle is | | normal in size and function.Left Atrium: The left atrium is normal in size.Right | | Atrium: The right atrium is mildly enlarged.Aortic Valve: There is no evidence of aortic | | regurgitation.Aortic Valve: Normally functioning mechanical aortic prosthetic | | valve.Aortic Valve: Peak/mean gradient across the valve is 36.09mmHg/18.67mmHg.Aortic | | Valve: S/P AVR.Mitral Valve: There is trace mitral regurgitation.Mitral Valve: Moderate | | mitral annular calcification present.Tricuspid Valve: The tricuspid valve appears | | structurally normal.Tricuspid Valve: Trace tricuspid regurgitation present.Tricuspid | | Valve: There is mild pulmonary hypertension.Tricuspid Valve: The right ventricular | | systolic pressure (pulmonary artery systolic pressure), as measured by Doppler, is | | 38.86mmHg.Pulmonic Valve: The pulmonic valve was not well visualized.Pericardium: There | | is no pericardial effusion.Pericardium: No pleural effusion seen.IVC/Hepatic Veins: The | | IVC is normal size (1.5-2.5cm) and collapses >50% with sniff, consistent with central | | venous pressures of 5-10mmHg.Aorta: Ascending aorta not well seen.General comments: | | Limited views, if clinically indicated trasnesophageal echocardiogram is recommended. | | MEASUREMENTS Ao sinus: 3.[address] junct: 3.35 cmIVC: 1.68 cmLA | | Major: 5.75 cmEDV(Teich): 115.92 mlIVSd: 1.25 cmLVIDd: 4.95 cmLVPWd: 1.32 | | cmLVOT Area: 3.70 [id number] Diam: 2.17 cm%FS: 41.78 %EF(Teich): 72.54 %ESV(Teich): | | 31.83 mlLVIDs: 2.88 cmSV(Teich): 84.09 mlRA Major: 5.61 cmRV Major: 8.46 cmRV | | Minor: 3.21 cmRVIDd: 2.87 cmLVEF MOD A2C: 70.43 %SV MOD A2C: 65.44 mlLVEF MOD | | A4C: 78.14 %SV MOD A4C: 95.06 mlEF Biplane: 73.78 %LVEDV MOD BP: 105.74 mlLVESV | | MOD BP: 27.72 mlLVEDV MOD A2C: 92.90 mlLVLd A2C: 8.84 cmLVEDV MOD A4C: 121.64 | | mlLVLd A4C: 8.88 cmLVESV MOD A2C: 27.46 mlLVLs A2C: 7.33 cmLVESV MOD A4C: 26.58 | | mlLVLs A4C: 6.95 cmLAESV(A-L): 66.42 mlLAESV Index (A-L): 30.19 ml/m2LAAs A2C: | | 22.57 [id number] A-L A2C: 74.44 mlLALs A2C: 5.81 cmLAAs A4C: 20.14 [id number] A-L A4C: | | 58.52 mlLALs A4C: 5.88 cmRAAs: 19.72 [id number] A-L: 54.80 mlRAESV MOD: 54.78 | | mlRALs: 6.02 cmTAPSE: 2.96 cmAV maxP.09 mmHgAV meanP.67 mmHgAV Vmax: | | 3.00 m/Citlaly Vmean: 1.98 m/Citlaly VTI: 66.16 cmAVA Vmax: 1.39 cm2AVA (VTI): 1.70 | | [id number] Vmax: 0.00 cm2/m2AVAI (VTI): 0.00 cm2/m2LVOT maxP.10 mmHgLVOT meanPG: | | 2.48 mmHgLVSI Dopp: 51.31 ml/m2LVSV Dopp: 112.89 mlLVOT Vmax: 1.12 m/sLVOT | | Vmean: 0.72 m/sLVOT VTI: 30.45 cmMV A Chad: 1.30 m/sMV Dec Vilas: 5.24 m/s2MV | | DecT: 314.05 msMV E Chad: 1.64 m/sMV E/A Ratio: 1.25MV PHT: 91.07 msMVA By PHT: | | 2.41 [id number] e': 0.05 m/sSeptal E/e': 30.11Lateral e': 0.06 m/sLateral E/e': | | 24.09RAP: 5 mmHgRVSP: 38.85 mmHgTR maxP.85 mmHgTR Vmax: 2.90 m/sRV s': | | 0.14 m/s Hospital Administrative Assistant:Authenticated by: Marcin Ramirez Date/Time: 10-01-2018 | | 17:15:46 IMPRESSION: 1. The left ventricle is normal in size with normal systolic | | function EF 60-65%.2. The right ventricle is normal in size and function.3. Normally | | functioning mechanical aortic prosthetic valve, St Aleks 25 mm.4. There is no pericardial | | effusion.5. Limited views, if clinically indicated [facility] [place] [facility] | | recommended. | |Ao st junct: 3.35 cm | |IVC: 1.68 cm | |LA Major: 5.75 cm | |EDV(Teich): 115.92 ml | |IVSd: 1.25 cm | |LVIDd: 4.95 cm | |LVPWd: 1.32 cm | |LVOT Area: 3.70 cm2 | |LVOT Diam: 2.17 cm | |%FS: 41.78 % | |EF(Teich): 72.54 % | |ESV(Teich): 31.83 ml | |LVIDs: 2.88 cm | |SV(Teich): 84.09 ml | |RA Major: 5.61 cm | |RV Major: 8.46 cm | |RV Minor: 3.21 cm | |RVIDd: 2.87 cm | |LVEF MOD A2C: 70.43 % | |SV MOD A2C: 65.44 ml | |LVEF MOD A4C: 78.14 % | |SV MOD A4C: 95.06 ml | |EF Biplane: 73.78 % | |LVEDV MOD BP: 105.74 ml | |LVESV MOD BP: 27.72 ml | |LVEDV MOD A2C: 92.90 ml | |LVLd A2C: 8.84 cm | |LVEDV MOD A4C: 121.64 ml | |LVLd A4C: 8.88 cm | |LVESV MOD A2C: 27.46 ml | |LVLs A2C: 7.33 cm | |LVESV MOD A4C: 26.58 ml | |LVLs A4C: 6.95 cm | |LAESV(A-L): 66.42 ml | |LAESV Index (A-L): 30.19 ml/m2 | |LAAs A2C: 22.57 cm2 | |LAESV A-L A2C: 74.44 ml | |LALs A2C: 5.81 cm | |LAAs A4C: 20.14 cm2 | |LAESV A-L A4C: 58.52 ml | |LALs A4C: 5.88 cm | |RAAs: 19.72 cm2 | |RAESV A-L: 54.80 ml | |RAESV MOD: 54.78 ml | |RALs: 6.02 cm | |TAPSE: 2.96 cm | |AV maxP.09 mmHg | |AV meanP.67 mmHg | |AV Vmax: 3.00 m/s | |AV Vmean: 1.98 m/s | |AV VTI: 66.16 cm | |GARETT Vmax: 1.39 cm2 | |GARETT (VTI): 1.70 cm2 | |AVAI Vmax: 0.00 cm2/m2 | |AVAI (VTI): 0.00 cm2/m2 | |LVOT maxP.10 mmHg | |LVOT meanP.48 mmHg | |LVSI Dopp: 51.31 ml/m2 | |LVSV Dopp: 112.89 ml | |LVOT Vmax: 1.12 m/s | |LVOT Vmean: 0.72 m/s | |LVOT VTI: 30.45 cm | |MV A Chad: 1.30 m/s | |MV Dec Vilas: 5.24 m/s2 | |MV DecT: 314.05 ms | |MV E Chad: 1.64 m/s | |MV E/A Ratio: 1.25 | |MV PHT: 91.07 ms | |MVA By PHT: 2.41 cm2 | |Septal e': 0.05 m/s | |Septal E/e': 30.11 | |Lateral e': 0.06 m/s | |Lateral E/e': 24.09 | |RAP: 5 mmHg | |RVSP: 38.85 mmHg | |TR maxP.85 mmHg | |TR Vmax: 2.90 m/s | |RV s': 0.14 m/s | | | |Hospital Administrative Assistant: | |Authenticated by: Marcin Lyon | |Report Date/Time: 10-01-2018 17:15:46 | | | |IMPRESSION: | |1. The left ventricle is normal in size with normal systolic function EF 60-65%. | |2. The right ventricle is normal in size and function. | |3. Normally functioning mechanical aortic prosthetic valve, St Aleks 25 mm. | |4. There is no pericardial effusion. | |5. Limited views, if clinically indicated [facility]. | + + documented in this encounter Visit Diagnoses Not on filedocumented in this encounter"
--- OUTSIDE RECORDS SUMMARY | ~2019-01-29 | XMS | Encounter Summary ---
Demographics + + + | Address | [address] | | | [place] [address] | + + + | Home Phone | | + + + | Preferred Language | Unknown | + + + | Marital Status | | + + + | Temple Affiliation | Unknown | + + + | Race | Unknown | + + + | Ethnic Group | Unknown | + + + Author + + + | Author | [facility] | | | and [place] | + + + | Organization | [facility] | | | [...] Team Providers + +------+ + | Care Care Director Rn Name | Role | Phone | + +------+ + | Kelvin Theodore MD | PCP | | + +------+ + Encounter Details +--------+ + + + + | Date | Type | Department | Care Team | Description | +--------+ + + + + | 09/21/ | Orders Only | [facility] | Clau Lock, | | | 2017 | | CONVERSION [address] | [address] | | | | | [place] | [place] | | | | | [place], [place] | [address] | | | | | [address] | | | | | | [phone] | | | +--------+ + + + [...] 05/14/ | Office | Cardiology | Marcin Jon, | | | 2020 | Visit | | MD [place] | | | | | | [place] | | | | | | [id number] | | | | | | | | +--------+---------+ + + + documented as of this encounter Procedures + +--------+ + + + | Procedure Name | Priori | Date/Time | Associated Diagnosis | Comments | | | ty | | | | + +--------+ + + + | ECHO INTERPRETATION | Routin | 09/21/2016 | | Results for this | | OF OUTSIDE FILMS | e | 10:44 AM | | procedure are in the | | | | PDT | | results section. | + +--------+ + + + documented in this encounter Results ECHO Interpretation of Outside Films (09/21/2016 10:44 AM PDT) + + | Specimen | + + | | + + + + + | Impressions | Performed At | + + + | 1. The left ventricle is normal in size, mild concentric hypertrophy | | | and hyperdynamic systolic function EF > 70%. 2. Pseudonormal LV | | | diastolic filling pattern, consistent with elevated LA pressure and | | | moderate dysfunction (Grade II). 3. The right ventricle is mildly | | | enlarged with normal systolic function. 4. Mechanical aortic valve | | | with acceptable gradient, no clear vegetation could be visualized, | | | however if clinically indicated HENRY is recommended. 5. Mild tricuspid | | | regurgitation with mild pulmonary hypertension RVSP 45 mmHg. 6. | | | There is no pericardial effusion. 7. No previous echo for the | | | baseline gradient for comparison. | | + + + + + + | Narrative | Performed At | + + + | Patient Name: Daniel Loving Date of : 1940 | | | Performing Physician: Marcin Jon MD | | | | | | INDICATIONS Inpatient: AVR, fever CONCLUSIONS | | | 1. The left ventricle is normal in size, mild concentric | | | hypertrophy and hyperdynamic systolic function EF > 70%. 2. | | | Pseudonormal LV diastolic filling pattern, consistent with elevated LA | | | pressure and moderate dysfunction (Grade II). 3. The right ventricle | | | is mildly enlarged with normal systolic function. 4. Mechanical | | | aortic valve with acceptable gradient, no clear vegetation could be | | | visualized, however if clinically indicated HENRY is recommended. 5. | | | Mild tricuspid regurgitation with mild pulmonary hypertension RVSP 45 | | | mmHg. 6. There is no pericardial effusion. 7. No previous echo for | | | the baseline gradient for comparison. FINDINGS -------- ECG | | | rhythm: Sinus rhythm. ECG rhythm: Resting bradycardia (HR<60bpm). | | | Study: A 2-dimensional transthoracic echocardiogram with m-mode, | | | spectral and color flow Doppler was perfomed. Study: This was a | | | technically adequate study. Left Ventricle: Left ventricular systolic | | | function is hyperdynamic with an estimated EF of >70%. Left | | | Ventricle: The left ventricle cavity size is normal. Left Ventricle: | | | Left ventricular wall thickness is normal. Left Ventricle: No | | | regional wall motion abnormalities. Left Ventricle: Pseudonormal LV | | | diastolic filling pattern, consistent with elevated LA pressure and | | | moderate dysfunction (Grade II). Right Ventricle: The right ventricle | | | is mildly enlarged measuring between 3.4 - 3.7 cm. Right Ventricle: | | | The right ventricular systolic function is normal. Left Atrium: The | | | left atrium is mildly enlarged. Right Atrium: The right atrium is | | | mildly enlarged. Aortic Valve: Trace amount of aortic regurgitation. | | | Aortic Valve: Peak/mean gradient across the valve is | | | 29.01mmHg/14.09mmHg Aortic Valve: echanical aortic valve with | | | acceptable gradient. Mitral Valve: There is trace mitral | | | regurgitation. Mitral Valve: Mild mitral annular calcification | | | present. Tricuspid Valve: The tricuspid valve appears structurally | | | normal. Tricuspid Valve: Mild tricuspid regurgitation present. | | | Tricuspid Valve: There is mild pulmonary hypertension. Tricuspid | | | Valve: The right ventricular systolic pressure (pulmonary artery | | | systolic pressure), as measured by Doppler, is 44.58mmHg. Pulmonic | | | Valve: The pulmonic valve is normal. Pulmonic Valve: Trace pulmonic | | | regurgitation. Pericardium: There is no pericardial effusion. | | | Pericardium: No pleural effusion seen. IVC/Hepatic Veins: The IVC is | | | normal size (1.5-2.5cm) and collapses >50% with sniff, consistent with | | | central venous pressures of 5-10mmHg. Aorta: The aortic root, | | | ascending aorta are within normal dimensions. General comments: No | | | previous echo is available for comparison of the baseline gradient. | | | General comments: If clinically indicated, a transesophageal | | | echocardiographic examination is recommended. MEASUREMENTS | | | Ao asc: 2.62 cm Ao Diam: 3.60 cm Ao sinus: | | | 3.[address] junct: 2.36 cm IVC: 2.28 cm LA Diam: 4.33 cm | | | LA Major: 5.54 cm EDV(Teich): 112.32 ml IVSd: 1.24 cm | | | LVIDd: 4.89 cm LVPWd: 1.16 cm LVOT Area: 2.76 cm2 LVOT | | | Diam: 1.87 cm %FS: 37.46 % EF(Teich): 67.33 % ESV(Teich): | | | 36.69 ml LVIDs: 3.05 cm SV(Teich): 75.63 ml RA Major: | | | 5.06 cm RV Major: 6.62 cm RVIDd: 3.22 cm LVEF MOD A2C: | | | 70.41 % SV MOD A2C: 105.64 ml LVEF MOD A4C: 70.63 % SV MOD | | | A4C: 79.14 ml EF Biplane: 71.62 % LVEDV MOD BP: 134.45 ml | | | LVESV MOD BP: 38.15 ml LVEDV MOD A2C: 150.01 ml LVLd A2C: | | | 8.33 cm LVEDV MOD A4C: 112.03 ml LVLd A4C: 9.03 cm LVESV MOD | | | A2C: 44.37 ml LVLs A2C: 7.45 cm LVESV MOD A4C: 32.89 ml | | | LVLs A4C: 7.44 cm LAESV(A-L): 65.37 ml LAESV Index (A-L): | | | 29.57 ml/m2 LAAs A2C: 19.65 cm2 LAESV A-L A2C: 60.62 ml LALs | | | A2C: 5.40 cm LAAs A4C: 21.19 cm2 LAESV A-L A4C: 66.25 ml | | | LALs A4C: 5.75 cm RAAs: 17.41 cm2 RAESV A-L: 50.15 ml | | | RAESV MOD: 48.06 ml RALs: 5.13 cm TAPSE: 2.71 cm AV maxPG: | | | 29.01 mmHg AV meanP.09 mmHg AV Vmax: 2.69 m/s AV | | | Vmean: 1.72 m/s AV VTI: 56.99 cm GARETT Vmax: 1.20 cm2 GARETT | | | (VTI): 1.42 cm2 AVAI Vmax: 0.00 cm2/m2 AVAI (VTI): 0.00 | | | cm2/m2 LVOT maxP.53 mmHg LVOT meanP.11 mmHg LVSI | | | Dopp: 36.86 ml/m2 LVSV Dopp: 81.47 ml LVOT Vmax: 1.17 m/s | | | LVOT Vmean: 0.83 m/s LVOT VTI: 29.50 cm MV A Chad: 1.30 m/s | | | MV DecT: 201.43 ms MV E Cahd: 1.58 m/s MV E/A Ratio: 1.21 | | | MV PHT: 58.41 ms MVA By PHT: 3.76 cm2 MV maxP.85 mmHg | | | MV meanP.70 mmHg MV Vmax: 1.64 m/s MV Vmean: 0.70 m/s | | | MV VTI: 54.42 cm MVA (VTI): 1.49 cm2 Septal e': 0.03 m/s | | | Septal E/e': 42.95 Lateral e': 0.05 m/s Lateral E/e': 26.73 | | | RAP: 10 mmHg RVSP: 44.58 mmHg TR maxP.58 mmHg TR | | | Vmax: 2.94 m/s Baby Counselor: AMY Authenticated by: Danay | | | Marcin BRIZUELA Report Date/Time: 09-21-2016 19:49:42 | | + + + + + | Procedure Note | + + | Perez, Rad Conversion - 10/25/2018 8:25 PM PDT Patient Name: Giorgio Loving of | | : 1940 Performing Physician: Marcin Jon | | MD INDICATIONS I | | npatient: AVR, fever CONCLUSIONS 1. The left ventricle is normal in size, | | mild concentric hypertrophy and hyperdynamic systolic function EF > 70%.2. Pseudonormal | | LV diastolic filling pattern, consistent with elevated LA pressure and moderate | | dysfunction (Grade II).3. The right ventricle is mildly enlarged with normal systolic | | function.4. Mechanical aortic valve with acceptable gradient, no clear vegetation could | | be visualized, however if clinically indicated HENRY is recommended.5. Mild tricuspid | | regurgitation with mild pulmonary hypertension RVSP 45 mmHg.6. There is no pericardial | | effusion.7. No previous echo for the baseline gradient for comparison. | | FINDINGS--------ECG rhythm: Sinus rhythm.ECG rhythm: Resting bradycardia | | (HR<60bpm).Study: A 2-dimensional transthoracic echocardiogram with m-mode, spectral and | | color flow Doppler was perfomed.Study: This was a technically adequate study.Left | | Ventricle: Left ventricular systolic function is hyperdynamic with an estimated EF of | | >70%.Left Ventricle: The left ventricle cavity size is normal.Left Ventricle: Left | | ventricular wall thickness is normal.Left Ventricle: No regional wall motion | | abnormalities.Left Ventricle: Pseudonormal LV diastolic filling pattern, consistent with | | elevated LA pressure and moderate dysfunction (Grade II).Right Ventricle: The right | | ventricle is mildly enlarged measuring between 3.4 - 3.7 cm.Right Ventricle: The right | | ventricular systolic function is normal.Left Atrium: The left atrium is mildly | | enlarged.Right Atrium: The right atrium is mildly enlarged.Aortic Valve: Trace amount of | | aortic regurgitation.Aortic Valve: Peak/mean gradient across the valve is | | 29.01mmHg/14.09mmHgAortic Valve: echanical aortic valve with acceptable gradient.Mitral | | Valve: There is trace mitral regurgitation.Mitral Valve: Mild mitral annular | | calcification present.Tricuspid Valve: The tricuspid valve appears structurally | | normal.Tricuspid Valve: Mild tricuspid regurgitation present.Tricuspid Valve: There is | | mild pulmonary hypertension.Tricuspid Valve: The right ventricular systolic pressure | | (pulmonary artery systolic pressure), as measured by Doppler, is 44.58mmHg.Pulmonic | | Valve: The pulmonic valve is normal.Pulmonic Valve: Trace pulmonic | | regurgitation.Pericardium: There is no pericardial effusion.Pericardium: No pleural | | effusion seen.IVC/Hepatic Veins: The IVC is normal size (1.5-2.5cm) and collapses >50% | | with sniff, consistent with central venous pressures of 5-10mmHg.Aorta: The aortic root, | | ascending aorta are within normal dimensions.General comments: No previous echo is | | available for comparison of the baseline gradient.General comments: If clinically | | indicated, a transesophageal echocardiographic examination is recommended. | | MEASUREMENTS Ao asc: 2.62 cmAo Diam: 3.60 cmAo sinus: 3.[address] | | junct: 2.36 cmIVC: 2.28 cmLA Diam: 4.33 cmLA Major: 5.54 cmEDV(Teich): 112.32 | | mlIVSd: 1.24 cmLVIDd: 4.89 cmLVPWd: 1.16 cmLVOT Area: 2.76 al2EUSJ Diam: 1.87 | | cm%FS: 37.46 %EF(Teich): 67.33 %ESV(Teich): 36.69 mlLVIDs: 3.05 cmSV(Teich): | | 75.63 mlRA Major: 5.06 cmRV Major: 6.62 cmRVIDd: 3.22 cmLVEF MOD A2C: 70.41 %SV | | MOD A2C: 105.64 mlLVEF MOD A4C: 70.63 %SV MOD A4C: 79.14 mlEF Biplane: 71.62 | | %LVEDV MOD BP: 134.45 mlLVESV MOD BP: 38.15 mlLVEDV MOD A2C: 150.01 mlLVLd A2C: | | 8.33 cmLVEDV MOD A4C: 112.03 mlLVLd A4C: 9.03 cmLVESV MOD A2C: 44.37 mlLVLs A2C: | | 7.45 cmLVESV MOD A4C: 32.89 mlLVLs A4C: 7.44 cmLAESV(A-L): 65.37 mlLAESV Index | | (A-L): 29.57 ml/m2LAAs A2C: 19.65 [id number] A-L A2C: 60.62 mlLALs A2C: 5.40 | | cmLAAs A4C: 21.19 [id number] A-L A4C: 66.25 mlLALs A4C: 5.75 cmRAAs: 17.41 | | [id number] A-L: 50.15 mlRAESV MOD: 48.06 mlRALs: 5.13 cmTAPSE: 2.71 cmAV maxPG: | | 29.01 mmHgAV meanP.09 mmHgAV Vmax: 2.69 m/Citlaly Vmean: 1.72 m/Citlaly VTI: 56.99 | | cmAVA Vmax: 1.20 cm2AVA (VTI): 1.42 lr0IKOT Vmax: 0.00 cm2/m2AVAI (VTI): 0.00 | | cm2/m2LVOT maxP.53 mmHgLVOT meanP.11 mmHgLVSI Dopp: 36.86 ml/m2LVSV Dopp: | | 81.47 mlLVOT Vmax: 1.17 m/sLVOT Vmean: 0.83 m/sLVOT VTI: 29.50 cmMV A Chad: | | 1.30 m/sMV DecT: 201.43 msMV E Chad: 1.58 m/sMV E/A Ratio: 1.21MV PHT: 58.41 | | msMVA By PHT: 3.76 cm2MV maxP.85 mmHgMV meanP.70 mmHgMV Vmax: 1.64 | | m/sMV Vmean: 0.70 m/sMV VTI: 54.42 cmMVA (VTI): 1.49 pw6Uiyhmr e': 0.03 | | m/sSeptal E/e': 42.95Lateral e': 0.05 m/sLateral E/e': 26.73RAP: 10 mmHgRVSP: | | 44.58 mmHgTR maxP.58 mmHgTR Vmax: 2.94 m/s Baby Counselor: YUNIERuthenticated by: | | Marcin Jon [facility] Date/Time: 09-21-2016 19:49:42 IMPRESSION: 1. The left | | ventricle is normal in size, mild concentric hypertrophy and hyperdynamic systolic | | function EF > 70%.2. Pseudonormal LV diastolic filling pattern, consistent with elevated | | LA pressure and moderate dysfunction (Grade II).3. The right ventricle is mildly | | enlarged with normal systolic function.4. Mechanical aortic valve with acceptable | | gradient, no clear vegetation could be visualized, however if clinically indicated HENRY | | is recommended.5. Mild tricuspid regurgitation with mild pulmonary hypertension RVSP 45 | | mmHg.6. There is no pericardial effusion.7. No previous echo for the baseline gradient | | for comparison. | |LVIDd: 4.89 cm | |LVPWd: 1.16 cm | |LVOT Area: 2.76 cm2 | |LVOT Diam: 1.87 cm | |%FS: 37.46 % | |EF(Teich): 67.33 % | |ESV(Teich): 36.69 ml | |LVIDs: 3.05 cm | |SV(Teich): 75.63 ml | |RA Major: 5.06 cm | |RV Major: 6.62 cm | |RVIDd: 3.22 cm | |LVEF MOD A2C: 70.41 % | |SV MOD A2C: 105.64 ml | |LVEF MOD A4C: 70.63 % | |SV MOD A4C: 79.14 ml | |EF Biplane: 71.62 % | |LVEDV MOD BP: 134.45 ml | |LVESV MOD BP: 38.15 ml | |LVEDV MOD A2C: 150.01 ml | |LVLd A2C: 8.33 cm | |LVEDV MOD A4C: 112.03 ml | |LVLd A4C: 9.03 cm | |LVESV MOD A2C: 44.37 ml | |LVLs A2C: 7.45 cm | |LVESV MOD A4C: 32.89 ml | |LVLs A4C: 7.44 cm | |LAESV(A-L): 65.37 ml | |LAESV Index (A-L): 29.57 ml/m2 | |LAAs A2C: 19.65 cm2 | |LAESV A-L A2C: 60.62 ml | |LALs A2C: 5.40 cm | |LAAs A4C: 21.19 cm2 | |LAESV A-L A4C: 66.25 ml | |LALs A4C: 5.75 cm | |RAAs: 17.41 cm2 | |RAESV A-L: 50.15 ml | |RAESV MOD: 48.06 ml | |RALs: 5.13 cm | |TAPSE: 2.71 cm | |AV maxP.01 mmHg | |AV meanP.09 mmHg | |AV Vmax: 2.69 m/s | |AV Vmean: 1.72 m/s | |AV VTI: 56.99 cm | |GARETT Vmax: 1.20 cm2 | |GARETT (VTI): 1.42 cm2 | |AVAI Vmax: 0.00 cm2/m2 | |AVAI (VTI): 0.00 cm2/m2 | |LVOT maxP.53 mmHg | |LVOT meanP.11 mmHg | |LVSI Dopp: 36.86 ml/m2 | |LVSV Dopp: 81.47 ml | |LVOT Vmax: 1.17 m/s | |LVOT Vmean: 0.83 m/s | |LVOT VTI: 29.50 cm | |MV A Chad: 1.30 m/s | |MV DecT: 201.43 ms | |MV E Chad: 1.58 m/s | |MV E/A Ratio: 1.21 | |MV PHT: 58.41 ms | |MVA By PHT: 3.76 cm2 | |MV maxP.85 mmHg | |MV meanP.70 mmHg | |MV Vmax: 1.64 m/s | |MV Vmean: 0.70 m/s | |MV VTI: 54.42 cm | |MVA (VTI): 1.49 cm2 | |Septal e': 0.03 m/s | |Septal E/e': 42.95 | |Lateral e': 0.05 m/s | |Lateral E/e': 26.73 | |RAP: 10 mmHg | |RVSP: 44.58 mmHg | |TR maxP.58 mmHg | |TR Vmax: 2.94 m/s | | | |Baby Counselor: | |Authenticated by: Marcin Jon MD | |Report Date/Time: 09-21-2016 19:49:42 | | | |IMPRESSION: | |1. The left ventricle is normal in size, mild concentric hypertrophy and hyperdynamic systo lic function EF > 70%. | |2. Pseudonormal LV diastolic filling pattern, consistent with elevated LA pressure and mode rate dysfunction (Grade II). | |3. The right ventricle is mildly enlarged with normal systolic function. | |4. Mechanical aortic valve with acceptable gradient, no clear vegetation could be visualize d, however if clinically indicated HENRY is recommended. | |5. Mild tricuspid regurgitation with mild pulmonary hypertension RVSP 45 mmHg. | |6. There is no pericardial effusion. | |7. No previous echo for the baseline gradient for comparison. | + + documented in this encounter Visit Diagnoses Not on filedocumented in this encounter"
--- OUTSIDE RECORDS SUMMARY | ~2019-01-29 | XMS | Encounter Summary ---
Demographics + + + | Address | [address] | | | [place] [address] | + + + | Home Phone | | + + + | Preferred Language | Unknown | + + + | Marital Status | | + + + | Zoroastrian Affiliation | Unknown | + + + | Race | Unknown | + + + | Ethnic Group | Unknown | + + + Author + + + | Author | [facility] | | | and [place] | + + + | Organization | [facility] | | | and [...] Team Providers + +------+ + | Care Concrete Mixer Name | Role | Phone | + [...] [place] | | | | | [place], [place] | [address] | | | | | [address] | | | | | | [phone] | | | +--------+ + + + [...] [place] | | | | | | [address] | | | | | | | [...] | MV DecT: 201.43 ms MV E Chad: 1.58 m/s MV E/A Ratio: 1.21 | [...] TR | | | Vmax: 2.94 m/s Prepared Foods Team Leader: AMY Authenticated by: Danay | | | [...] cmLVIDd: 4.89 cmLVPWd: 1.16 cmLVOT Area: 2.76 [id number] Diam: 1.87 | | cm%FS: 37.46 %EF(Teich): [...] | | (A-L): 29.57 ml/m2LAAs A2C: 19.65 gt9MGNNZ A-L A2C: 60.62 mlLALs A2C: 5.40 | | cmLAAs A4C: 21.19 qf9DCQHH A-L A4C: 66.25 mlLALs A4C: 5.75 cmRAAs: 17.41 | | iu7CWNWZ A-L: 50.15 mlRAESV MOD: 48.06 mlRALs: 5.13 cmTAPSE: 2.71 cmAV maxPG: | | 29.01 mmHgAV meanP.09 mmHgAV Vmax: 2.69 m/Citlaly Vmean: 1.72 m/Citlaly VTI: 56.99 | | cmAVA Vmax: 1.20 cm2AVA (VTI): 1.42 fw0QITE Vmax: 0.00 cm2/m2AVAI (VTI): 0.00 | | [...] 0.70 m/sMV VTI: 54.42 cmMVA (VTI): 1.49 id6Npdxpe e': 0.03 | | m/sSeptal E/e': 42.95Lateral e': 0.05 m/sLateral E/e': 26.73RAP: 10 mmHgRVSP: | | 44.58 mmHgTR maxP.58 mmHgTR Vmax: 2.94 m/s Prepared Foods Team Leader: YUNIERuthenticated by: | | Marcin Jon [facility] Date/Time: 09-21-2016 19:49:42 IMPRESSION: 1. The left [...] |TR Vmax: 2.94 m/s | | | |Prepared Foods Team Leader: | |Authenticated by: Marcin Jon MD | [...]
--- OUTSIDE RECORDS SUMMARY | ~2019-01-29 | XMS ---
Demographics + + + | Address | [address] | | | [address] | | | [place] [address] | + + + | Preferred Language | Unknown | + + + | Marital Status | Unknown | + + + | Presybeterian Affiliation | Unknown | + + + | Race | Unknown | + + + | Ethnic Group | Unknown | + + + Author + + + | Author | [facility] | + + + | Organization | [facility] | + + + | Address | [address] | | | [place] [address] | + + + | Phone | | + + + Care Team Providers + + + + | Care Parts Interpreter Name | Role | Phone | + + + + Unavailable | Unavailable | + + + + PROBLEMS +---------+ + + +--------+ + + | Type | Condition | ICD9-CM | [id number] | Onset | Condition | SNOMED | | | | Code | Code | Dates | Status | Code | +---------+ + + +--------+ + + | Problem | Essential | | I10 | | Active | [id number] | | | (primary) | | | | | | | | hypertensi | | | | | | | | on | | | | | | +---------+ + + +--------+ + + | Problem | Hyperlipid | | E78.5 | | Active | [id number] | | | emia | | | [...] + + + | Follow Up | prn Reason:null | + + + VITAL SIGNS + + + + | Height | 64 in | 2016-11-02 | + + + + | Weight | 236.41 lbs | 2016-11-02 | + + + + | BMI | 40.58 kg/m2 | 2016-11-02 | + + + + | Temperature | 97.7 degrees Fahrenheit | 2016-11-02 | + + + + | Heart Rate | 53 /min | 2016-11-02 | + + + + | Blood pressure systolic | 117 mm Hg | 2016-11-02 | + + + + | Blood pressure diastolic | 52 mm Hg | 2016-11-02 | + + + + MEDICATIONS + + + + + + + +--------+ | Medicati | Instruct | Dosage | Frequenc | Start | End Date | Duration | Status | | on | ions | | y | Date | | | | + + + + + + + +--------+ | Aspir-81 | | | | | | | Active | + + + + + + + +--------+ | Atorvast | | | | | | | Active | | atin | | | | | | | | | Calcium | | | | | | | | | 20 MG | | | | | | | | + + + + + + + +--------+ | Allopuri | Orally | 1 tablet | 24h | | | | Active | | nol 300 | Once a | | | | | | | | MG | day | | | | | | | + + + + + + + +--------+ | Rivastig | | | | | | | Active | | mine 3 | | | | | | | | | mg | | | | | | | | + + + + + + + +--------+ | Escitalo | | | | | | | Active | | pram | | | | | | | | | Oxalate | | | | | | | | | 10 MG | | | | | | | | + + + + + + + +--------+ | Carvedil | | | | | | | Active | | ol 25 MG | | | | | | | | + + + + + + + +--------+ | Erythrom | External | 1 cm | | 30 Oct, | 29 Nov, | 15 d | Active | | ycin | ly rt | ribbon | | 2017 | 2017 | | | | ophthalm | eye hs | in | | | | | | | ic 0.5% | | affected | | | | | | | | | eye | | | | | | + + + + + + + +--------+ | Warfarin | Orally 2 | | | | | | Active | | Sodium | at | | | | | | | | 5 MG | night | | | | | | | + + + + + + + +--------+ RESULTS No Results PROCEDURES + + + + + | Procedure | Date Ordered | Related Diagnosis | Body Site | + + + + + | AUDIT/DAST | Nov 02, 2016 | | | | (Medicare) | | | | + + + + + | LDL-C = 130 MG/DL | Nov 02, 2016 | | | + + + + + | LDL-C <100 MG/DL | Nov 02, 2016 | | | + + + + + | LDL-C 100-129 MG/DL | Nov 02, 2016 | | | + + + + + | Office Visit, Est | Nov 02, 2016 | | | | Pt., Level 2 | | | | + + + + + IMMUNIZATIONS No Known Immunizations"
--- OUTSIDE RECORDS SUMMARY | ~2019-01-29 | XMS | Encounter Summary ---
Demographics + + + | Address | [address] | | | [place] [address] | + + + | Home Phone | | + + + | Preferred Language | Unknown | + + + | Marital Status | | + + + | Presybeterian Affiliation | Unknown | + + + | Race | Unknown | + + + | Ethnic Group | Unknown | + + + Author + + + | Author | [facility] | | | and [place] | + + + | Organization | [facility] | | | [...] Team Providers + +------+ + | Care Jigger Machine Operator Name | Role | Phone | + +------+ + | Kelvin Theodore MD | PCP | | + +------+ + Encounter Details +--------+ + + + + | Date | Type | Department | Care Team | Description | +--------+ + + + + | 10/16/ | Orders Only | [facility] | Conversion | | | 2019 | | CONVERSION DEP [address] | Transaction, | | | | | [address] | Provider Unknown | | | | | [place] | [phone] | | | | | [address] | | | | | | [phone] | | | +--------+ + + + [...] Cardiology | Marcin Lyon, | | | 2020 | Visit | | MD [address] | | | | | | [place] | | | | | | [phone] | | | | | | | | +--------+---------+ + + + documented as of this encounter Visit Diagnoses Not on filedocumented in this encounter"
--- OUTSIDE RECORDS SUMMARY | ~2019-01-29 | XMS | Encounter Summary ---
Demographics + + + | Address | [address] | | | [place] [address] | + + + | Home Phone | | + + + | Preferred Language | Unknown | + + + | Marital Status | | + + + | Pentecostal Affiliation | Unknown | + + + | Race | Unknown | + + + | Ethnic Group | Unknown | + + + Author + + + | Author | [facility] | | | and [place] | + + + | Organization | [facility] | | | and [...] Team Providers + +------+ + | Care Senior Microsoft Consultant Name | Role | Phone | + +------+ + | Kelvin Theodore MD | PCP | | + +------+ + Encounter Details +--------+ + + + + | Date | Type | Department | Care Team | Description | +--------+ + + + + | 11/08/ | Orders Only | [facility] | Meena Carrasquillo V, | | | 2017 | | CONVERSION [address] | [address] | | | | | [address] | [place] | | | | | [place], [place] | [address] | | | | | [address] | | | | | | [phone] | | | +--------+ + + + [...] [place] | | | | | | [address] | | | | | | | | +--------+---------+ + + + documented as of this encounter Procedures + +--------+ + + + | Procedure Name | Priori | Date/Time | Associated Diagnosis | Comments | | | ty | | | | + +--------+ + + + | ECHO INTERPRETATION | Routin | 11/08/2016 | | Results for this | | OF OUTSIDE FILMS | e | 5:03 PM | | procedure are in the | | | | PDT | | results section. | + +--------+ + + + documented in this encounter Results ECHO Interpretation of Outside Films (11/08/2016 5:03 PM PDT) + + | Specimen | + + | | + + + + + | Impressions | Performed At | + + + | 1. Left ventricular systolic function is hyperdynamic with an | | | estimated EF of >70%. 2. Pseudonormal LV diastolic filling pattern, | | | consistent with elevated LA pressure and moderate dysfunction (Grade | | | II). 3. The right ventricular systolic function is normal. 4. There | | | is a mechanical prosthetic aortic valve, but this was not well | | | visualized due to acoustic shadowing. The peak measured | | | transvalvular gradient was 38 mmHg and mean gradient was 19 mmHg - the | | | significance of these measurements depends on the type and size of | | | prosthetic valve, and this information is not availalble. 5. No | | | vegetation visualized, but a small vegetation cannot be excluded on | | | the basis of this study. | | + + + + + + | Narrative | Performed At | + + + | Patient Name: Daniel Loving Date of : 1940 | | | Performing Physician: PATRIC CULP MD | | | | | | INDICATIONS Inpatient: AVR, assess for endocarditis, | | | Fever CONCLUSIONS 1. Left ventricular systolic | | | function is hyperdynamic with an estimated EF of >70%. 2. | | | Pseudonormal LV diastolic filling pattern, consistent with elevated LA | | | pressure and moderate dysfunction (Grade II). 3. The right | | | ventricular systolic function is normal. 4. There is a mechanical | | | prosthetic aortic valve, but this was not well visualized due to | | | acoustic shadowing. The peak measured transvalvular gradient was 38 | | | mmHg and mean gradient was 19 mmHg - the significance of these | | | measurements depends on the type and size of prosthetic valve, and | | | this information is not availalble. 5. No vegetation visualized, but | | | a small vegetation cannot be excluded on the basis of this study. | | | FINDINGS -------- ECG rhythm: Sinus rhythm. Study: A 2-dimensional | | | transthoracic echocardiogram with m-mode, spectral and color flow | | | Doppler was perfomed. Study: This was a technically adequate study. | | | Left Ventricle: Left ventricular systolic function is hyperdynamic | | | with an estimated EF of >70%. Left Ventricle: The left ventricle | | | cavity size is normal. Left Ventricle: There is mild concentric left | | | ventricular hypertrophy. Left Ventricle: No regional wall motion | | | abnormalities. Left Ventricle: Pseudonormal LV diastolic filling | | | pattern, consistent with elevated LA pressure and moderate dysfunction | | | (Grade II). Right Ventricle: The right ventricle is normal in size. | | | Right Ventricle: The right ventricular systolic function is normal. | | | Left Atrium: The left atrium is mildly enlarged. Right Atrium: The | | | right atrium is mildly enlarged. Aortic Valve: There is a mechanical | | | prosthetic aortic valve, but this was not well visualized. No | | | vegetations are noted, but, due to limited visualization of valve | | | structures, the possibility of a small vegetation cannot be | | | definitively excluded. The peak measured transvalvular gradient was | | | 38 mmHg and mean gradient was 19 mmHg - the significance of these | | | measurements depends on the type and size of prosthetic valve, and | | | this information is not availalble. Aortic Valve: There is no | | | evidence of aortic regurgitation. Aortic Valve: No aortic valve | | | vegetation seen. Mitral Valve: There is trace mitral regurgitation. | | | Mitral Valve: Mild mitral annular calcification present. Mitral | | | Valve: There is no mitral vegetation seen. Tricuspid Valve: The | | | tricuspid valve appears structurally normal. Tricuspid Valve: Mild | | | tricuspid regurgitation present. Tricuspid Valve: There is moderate | | | pulmonary hypertension. Tricuspid Valve: The right ventricular | | | systolic pressure (pulmonary artery systolic pressure), as measured by | | | Doppler, is 53.57mmHg. Pulmonic Valve: The pulmonic valve was not | | | well visualized. Pericardium: There is no pericardial effusion. | | | IVC/Hepatic Veins: The IVC is normal size (1.5-2.5cm) and collapses | | | >50% with sniff, consistent with central venous pressures of 5-10mmHg. | | | Aorta: The aortic root, ascending aorta and aortic arch are normal. | | | Mass: No mass visualized Thrombus: No clot visualized. Thrombus: No | | | vegetation visualized. Septum: No ASD observed. Septum: No VSD | | | observed. MEASUREMENTS Ao asc: 2.62 cm Ao | | | Diam: 3.04 cm Ao sinus: 3.[address] junct: 2.59 cm IVC: | | | 2.15 cm LA Diam: 4.25 cm LA Major: 5.95 cm EDV(Teich): | | | 122.49 ml IVSd: 1.22 cm LVIDd: 5.07 cm LVPWd: 1.18 cm | | | LVOT Area: 3.18 cm2 LVOT Diam: 2.01 cm %FS: 39.73 % | | | EF(Teich): 70.02 % ESV(Teich): 36.72 ml LVIDs: 3.05 cm | | | SV(Teich): 85.77 ml RA Major: 4.75 cm RV Major: 6.77 cm | | | RVIDd: 3.31 cm LVEF MOD A2C: 66.67 % SV MOD A2C: 96.78 ml | | | LVEF MOD A4C: 74.14 % SV MOD A4C: 78.06 ml EF Biplane: | | | 71.15 % LVEDV MOD BP: 125.61 ml LVESV MOD BP: 36.22 ml LVEDV | | | MOD A2C: 145.16 ml LVLd A2C: 8.84 cm LVEDV MOD A4C: 105.27 | | | ml LVLd A4C: 8.50 cm LVESV MOD A2C: 48.38 ml LVLs A2C: | | | 7.16 cm LVESV MOD A4C: 27.21 ml LVLs A4C: 7.30 cm LAESV(A-L): | | | 81.16 ml LAESV Index (A-L): 37.40 ml/m2 LAAs A2C: 24.20 | | | cm2 LAESV A-L A2C: 84.52 ml LALs A2C: 5.88 cm LAAs A4C: | | | 23.23 cm2 LAESV A-L A4C: 71.04 ml LALs A4C: 6.45 cm RAAs: | | | 20.83 cm2 RAESV A-L: 64.31 ml RAESV MOD: 60.73 ml RALs: | | | 5.73 cm TAPSE: 2.29 cm AV maxP.74 mmHg AV meanPG: | | | 19.17 mmHg AV Vmax: 3.07 m/s AV Vmean: 2.00 m/s AV VTI: | | | 56.79 cm GARETT Vmax: 1.32 cm2 GAERTT (VTI): 1.51 cm2 AVAI Vmax: | | | 0.00 cm2/m2 AVAI (VTI): 0.00 cm2/m2 LVOT maxP.57 mmHg | | | LVOT meanP.58 mmHg LVSI Dopp: 39.52 ml/m2 LVSV Dopp: | | | 85.77 ml LVOT Vmax: 1.28 m/s LVOT Vmean: 0.87 m/s LVOT VTI: | | | 26.94 cm MV A Chad: 1.51 m/s MV DecT: 218.10 ms MV E Chad: | | | 1.68 m/s MV E/A Ratio: 1.11 MV PHT: 63.25 ms MVA By PHT: | | | 3.47 cm2 MV maxP.61 mmHg MV meanP.95 mmHg MV | | | Vmax: 1.77 m/s MV Vmean: 1.02 m/s MV VTI: 51.46 cm MVA | | | (VTI): 1.66 cm2 Septal e': 0.07 m/s Septal E/e': 23.15 | | | RAP: 5 mmHg RVSP: 53.57 mmHg TR maxP.57 mmHg TR Vmax: | | | 3.48 m/s Aerodynamicist: AMY Authenticated by: PATRIC CULP MD | | | Report Date/Time: -- [id number]:24:17 | | + + + + + | Procedure Note | + + | Coleman Todd Conversion - 10/25/2018 8:25 PM PDT Patient Name: Giorgio Loving of | | : 1940 Performing Physician: PATRIC CULP, | | INDICATIONS I | | npatient: AVR, assess for endocarditis, Fever CONCLUSIONS 1. Left ventricular | | systolic function is hyperdynamic with an estimated EF of >70%.2. Pseudonormal LV | | diastolic filling pattern, consistent with elevated LA pressure and moderate dysfunction | | (Grade II).3. The right ventricular systolic function is normal.4. There is a | | mechanical prosthetic aortic valve, but this was not well visualized due to acoustic | | shadowing. The peak measured transvalvular gradient was 38 mmHg and mean gradient was | | 19 mmHg - the significance of these measurements depends on the type and size of | | prosthetic valve, and this information is not availalble.5. No vegetation visualized, | | but a small vegetation cannot be excluded on the basis of this study. | | FINDINGS--------ECG rhythm: Sinus rhythm.Study: A 2-dimensional transthoracic | | echocardiogram with m-mode, spectral and color flow Doppler was perfomed.Study: This was | | a technically adequate study.Left Ventricle: Left ventricular systolic function is | | hyperdynamic with an estimated EF of >70%.Left Ventricle: The left ventricle cavity size | | is normal.Left Ventricle: There is mild concentric left ventricular hypertrophy.Left | | Ventricle: No regional wall motion abnormalities.Left Ventricle: Pseudonormal LV | | diastolic filling pattern, consistent with elevated LA pressure and moderate dysfunction | | (Grade II).Right Ventricle: The right ventricle is normal in size.Right Ventricle: The | | right ventricular systolic function is normal.Left Atrium: The left atrium is mildly | | enlarged.Right Atrium: The right atrium is mildly enlarged.Aortic Valve: There is a | | mechanical prosthetic aortic valve, but this was not well visualized. No vegetations are | | noted, but, due to limited visualization of valve structures, the possibility of a | | small vegetation cannot be definitively excluded. The peak measured transvalvular | | gradient was 38 mmHg and mean gradient was 19 mmHg - the significance of these | | measurements depends on the type and size of prosthetic valve, and this information is | | not availalble.Aortic Valve: There is no evidence of aortic regurgitation.Aortic Valve: | | No aortic valve vegetation seen.Mitral Valve: There is trace mitral regurgitation.Mitral | | Valve: Mild mitral annular calcification present.Mitral Valve: There is no mitral | | vegetation seen.Tricuspid Valve: The tricuspid valve appears structurally | | normal.Tricuspid Valve: Mild tricuspid regurgitation present.Tricuspid Valve: There is | | moderate pulmonary hypertension.Tricuspid Valve: The right ventricular systolic pressure | | (pulmonary artery systolic pressure), as measured by Doppler, is 53.57mmHg.Pulmonic | | Valve: The pulmonic valve was not well visualized.Pericardium: There is no pericardial | | effusion.IVC/Hepatic Veins: The IVC is normal size (1.5-2.5cm) and collapses >50% with | | sniff, consistent with central venous pressures of 5-10mmHg.Aorta: The aortic root, | | ascending aorta and aortic arch are normal.Mass: No mass visualizedThrombus: No clot | | visualized.Thrombus: No vegetation visualized.Septum: No ASD observed.Septum: No VSD | | observed. MEASUREMENTS Ao asc: 2.62 cmAo Diam: 3.04 cmAo sinus: 3.37 | | cmAo st junct: 2.59 cmIVC: 2.15 cmLA Diam: 4.25 cmLA Major: 5.95 cmEDV(Teich): | | 122.49 mlIVSd: 1.22 cmLVIDd: 5.07 cmLVPWd: 1.18 cmLVOT Area: 3.18 [id number] Diam: | | 2.01 cm%FS: 39.73 %EF(Teich): 70.02 %ESV(Teich): 36.72 mlLVIDs: 3.05 | | cmSV(Teich): 85.77 mlRA Major: 4.75 cmRV Major: 6.77 cmRVIDd: 3.31 cmLVEF MOD | | A2C: 66.67 %SV MOD A2C: 96.78 mlLVEF MOD A4C: 74.14 %SV MOD A4C: 78.06 mlEF | | Biplane: 71.15 %LVEDV MOD BP: 125.61 mlLVESV MOD BP: 36.22 mlLVEDV MOD A2C: | | 145.16 mlLVLd A2C: 8.84 cmLVEDV MOD A4C: 105.27 mlLVLd A4C: 8.50 cmLVESV MOD A2C: | | 48.38 mlLVLs A2C: 7.16 cmLVESV MOD A4C: 27.21 mlLVLs A4C: 7.30 cmLAESV(A-L): | | 81.16 mlLAESV Index (A-L): 37.40 ml/m2LAAs A2C: 24.20 [id number] A-L A2C: 84.52 | | mlLALs A2C: 5.88 cmLAAs A4C: 23.23 [id number] A-L A4C: 71.04 mlLALs A4C: 6.45 | | cmRAAs: 20.83 [id number] A-L: 64.31 mlRAESV MOD: 60.73 mlRALs: 5.73 cmTAPSE: | | 2.29 cmAV maxP.74 mmHgAV meanP.17 mmHgAV Vmax: 3.07 m/[place]laly Vmean: 2.00 | | m/[place]laly VTI: 56.79 cmAVA Vmax: 1.32 cm2AVA (VTI): 1.51 [id number] Vmax: 0.00 | | cm2/m2AVAI (VTI): 0.00 cm2/m2LVOT maxP.57 mmHgLVOT meanP.58 mmHgLVSI Dopp: | | 39.52 ml/m2LVSV Dopp: 85.77 mlLVOT Vmax: 1.28 m/sLVOT Vmean: 0.87 m/sLVOT VTI: | | 26.94 cmMV A Chad: 1.51 m/sMV DecT: 218.10 msMV E Chad: 1.68 m/sMV E/A Ratio: | | 1.11MV PHT: 63.25 msMVA By PHT: 3.47 cm2MV maxP.61 mmHgMV meanP.95 | | mmHgMV Vmax: 1.77 m/sMV Vmean: 1.02 m/sMV VTI: 51.46 cmMVA (VTI): 1.66 [id number] | | e': 0.07 m/sSeptal E/e': 23.15RAP: 5 mmHgRVSP: 53.57 mmHgTR maxP.57 | | mmHgTR Vmax: 3.48 m/s Aerodynamicist: DHAuthenticated by: Lynda RODARTE | | Date/Time: -- [id number]:24:17 IMPRESSION: 1. Left ventricular systolic function | | is hyperdynamic with an estimated EF of >70%.2. Pseudonormal LV diastolic filling | | pattern, consistent with elevated LA pressure and moderate dysfunction (Grade II).3. The | | right ventricular systolic function is normal.4. There is a mechanical prosthetic | | aortic valve, but this was not well visualized due to acoustic shadowing. The peak | | measured transvalvular gradient was 38 mmHg and mean gradient was 19 mmHg - the | | significance of these measurements depends on the type and size of prosthetic valve, and | | this information is not availalble.5. No vegetation visualized, but a small vegetation | | cannot be excluded on the basis of this study. | |LVPWd: 1.18 cm | |LVOT Area: 3.18 cm2 | |LVOT Diam: 2.01 cm | |%FS: 39.73 % | |EF(Teich): 70.02 % | |ESV(Teich): 36.72 ml | |LVIDs: 3.05 cm | |SV(Teich): 85.77 ml | |RA Major: 4.75 cm | |RV Major: 6.77 cm | |RVIDd: 3.31 cm | |LVEF MOD A2C: 66.67 % | |SV MOD A2C: 96.78 ml | |LVEF MOD A4C: 74.14 % | |SV MOD A4C: 78.06 ml | |EF Biplane: 71.15 % | |LVEDV MOD BP: 125.61 ml | |LVESV MOD BP: 36.22 ml | |LVEDV MOD A2C: 145.16 ml | |LVLd A2C: 8.84 cm | |LVEDV MOD A4C: 105.27 ml | |LVLd A4C: 8.50 cm | |LVESV MOD A2C: 48.38 ml | |LVLs A2C: 7.16 cm | |LVESV MOD A4C: 27.21 ml | |LVLs A4C: 7.30 cm | |LAESV(A-L): 81.16 ml | |LAESV Index (A-L): 37.40 ml/m2 | |LAAs A2C: 24.20 cm2 | |LAESV A-L A2C: 84.52 ml | |LALs A2C: 5.88 cm | |LAAs A4C: 23.23 cm2 | |LAESV A-L A4C: 71.04 ml | |LALs A4C: 6.45 cm | |RAAs: 20.83 cm2 | |RAESV A-L: 64.31 ml | |RAESV MOD: 60.73 ml | |RALs: 5.73 cm | |TAPSE: 2.29 cm | |AV maxP.74 mmHg | |AV meanP.17 mmHg | |AV Vmax: 3.07 m/s | |AV Vmean: 2.00 m/s | |AV VTI: 56.79 cm | |GARETT Vmax: 1.32 cm2 | |GARETT (VTI): 1.51 cm2 | |AVAI Vmax: 0.00 cm2/m2 | |AVAI (VTI): 0.00 cm2/m2 | |LVOT maxP.57 mmHg | |LVOT meanP.58 mmHg | |LVSI Dopp: 39.52 ml/m2 | |LVSV Dopp: 85.77 ml | |LVOT Vmax: 1.28 m/s | |LVOT Vmean: 0.87 m/s | |LVOT VTI: 26.94 cm | |MV A Chad: 1.51 m/s | |MV DecT: 218.10 ms | |MV E Chad: 1.68 m/s | |MV E/A Ratio: 1.11 | |MV PHT: 63.25 ms | |MVA By PHT: 3.47 cm2 | |MV maxP.61 mmHg | |MV meanP.95 mmHg | |MV Vmax: 1.77 m/s | |MV Vmean: 1.02 m/s | |MV VTI: 51.46 cm | |MVA (VTI): 1.66 cm2 | |Septal e': 0.07 m/s | |Septal E/e': 23.15 | |RAP: 5 mmHg | |RVSP: 53.57 mmHg | |TR maxP.57 mmHg | |TR Vmax: 3.48 m/s | | | |Aerodynamicist: | |Authenticated by: PATRIC CULP MD | |Report Date/Time: -- [id number]:24:17 | | | |IMPRESSION: | |1. Left ventricular systolic function is hyperdynamic with an estimated EF of >70%. | |2. Pseudonormal LV diastolic filling pattern, consistent with elevated LA pressure and mode rate dysfunction (Grade II). | |3. The right ventricular systolic function is normal. | |4. 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 The peak measured transvalvular gradient was 38 mmHg and mean gradient w as 19 mmHg - the significance of | |these measurements depends on the type | | and size of prosthetic valve, and this information is not availalble. | |5. No vegetation visualized, but a small vegetation cannot be excluded on the basis of this study. | + + documented in this encounter Visit Diagnoses Not on filedocumented in this encounter"
--- OUTSIDE RECORDS SUMMARY | ~2019-01-29 | XMS | Encounter Summary ---
Demographics + + + | Address | [address] | | | [place] [address] | + + + | Home Phone | | + + + | Preferred Language | Unknown | + + + | Marital Status | | + + + | Sabianism Affiliation | Unknown | + + + | Race | Unknown | + + + | Ethnic Group | Unknown | + + + Author + + + | Author | [facility] | | | and [place] | + + + | Organization | [facility] | | | and [...] Team Providers + +------+ + | Care Steamtable Worker Name | Role | Phone | + +------+ + | Kelvin Theodore MD | PCP | | + +------+ + Encounter Details +--------+ + + + + | Date | Type | Department | Care Team | Description | +--------+ + + + + | 04/14/ | Orders Only | [facility] | Conversion | | | 2018 | | INFECTIOUS DISEASE | Transaction, | | | | | [address] | Provider Unknown | | | | | [place] BUCKNER | [phone] | | | | | [address] | | | | | | [phone] | | | +--------+ + + + [...] [place] | | | | | | [address] | | | | | | | | +--------+---------+ + + + documented as of this encounter Procedures + +--------+ + + + | Procedure Name | Priori | Date/Time | Associated Diagnosis | Comments | | | ty | | | | + +--------+ + + + | CULTURE, BLOOD, 2ND | Routin | 04/14/2017 | | Results for this | | SPECIMEN (NON-ORD) | e | 12:00 AM | | procedure are in the | | | | PST | | results section. | + +--------+ + + + | CULTURE, BLOOD | Routin | 04/14/2017 | | Results for this | | | e | 12:00 AM | | procedure are in the | | | | PST | | results section. | + +--------+ + + + documented in this encounter Results Culture, Blood, 2nd Specimen (04/14/2017 12:00 AM PST) + + | Specimen [...] | + +---------+ + + Culture, Blood (04/14/2017 12:00 AM PST) + + | Specimen [...]
--- OUTSIDE RECORDS SUMMARY | ~2019-01-29 | XMS | Encounter Summary ---
Demographics + + + | Address | [address] | | | [place] [address] | + + + | Home Phone | | + + + | Preferred Language | Unknown | + + + | Marital Status | | + + + | Anabaptist Affiliation | Unknown | + + + | Race | Unknown | + + + | Ethnic Group | Unknown | + + + Author + + + | Author | [facility] | | | and [place] | + + + | Organization | [facility] | | | [...] Team Providers + +------+ + | Care Yarn Mercerizer Operator Helper Name | Role | Phone | + +------+ + | Kelvin Theodore MD | PCP | | + +------+ + Reason for Visit + + + | Reason | Comments | + + + | Coordination Of Care | Dr. Tejada | + + + Encounter Details +--------+ + + + + | Date | Type | Department | Care Team | Description | +--------+ + + + + | 10/29/ | Telephone | [facility] | Kenny Garcia DO | Coordination Of Care | | 2019 | | INFECTIOUS DISEASE | [address] | (Dr. Tejada) | | | | [address] | [place] [address] | | | | | [place], [place] | [phone] | | | | | [address] | | | | | | [phone] | | | +--------+ + + + [...] [place] | | | | | | [address] | | | | | | | | +--------+---------+ + + + documented as of this encounter Visit Diagnoses Not on filedocumented in this encounter"
--- OUTSIDE RECORDS SUMMARY | ~2019-01-29 | XMS | Encounter Summary ---
Demographics + + + | Address | [address] | | | [place] [address] | + + + | Home Phone | | + + + | Preferred Language | Unknown | + + + | Marital Status | | + + + | Alevism Affiliation | Unknown | + + + | Race | Unknown | + + + | Ethnic Group | Unknown | + + + Author + + + | Author | [facility] | | | and [place] | + + + | Organization | [facility] | | [...] Team Providers + +------+ + | Care Real Estate Closer Name | Role | Phone | + +------+ + | Kelvin Theodore MD | PCP | | + +------+ + Encounter Details +--------+ + + + + | Date | Type | Department | Care Team | Description | +--------+ + + + + | 02/22/ | Orders Only | [facility] | Conversion | | | 2017 | | CONVERSION [address] | Transaction, | | | | [address] | Provider Unknown | | | | | TIMI BUCKNER | [phone] | | | | | [address] | | | | | | [phone] | | | +--------+ + + + [...] | | | | | [place] | | | | | | [address] | | | | | | | | +--------+---------+ + + + documented as of this encounter Visit Diagnoses Not on filedocumented in this encounter"
--- OUTSIDE RECORDS SUMMARY | ~2019-01-29 | XMS | Encounter Summary ---
Demographics + + + | Address | [address] | | | [place] [address] | + + + | Home Phone [...] Team Providers + +------+ + | Care Time Study Engineer Name | Role | Phone | + +------+ + | Kelvin Theodore MD | PCP | | + +------+ + Encounter Details +--------+ + + + + | Date | Type | Department | Care Team | Description | +--------+ + + + + | 04/17/ | Orders Only | [facility] | Conversion | | | 2018 | | INFECTIOUS DISEASE | Transaction, | | | | | [address] | Provider Unknown | | | | | TIMI BUCKNER | [phone] | | | | | [address] | | | | | | [phone] | | | +--------+ + + + [...] [place] | | | | | | [address] | | | | | | | [...]
--- OUTSIDE RECORDS SUMMARY | ~2019-01-29 | XMS | Encounter Summary ---
Demographics + + + | Address | [address] | | | [place] [address] | + + + | Home Phone | | + + + | Preferred Language | Unknown | + + + | Marital Status | | + + + | Episcopalian Affiliation | Unknown | + + + | Race | Unknown | + + + | Ethnic Group | Unknown | + + + Author + + + | Author | [facility] | | | and [place] | + + + | Organization | [facility] | | | [...] Team Providers + +------+ + | Care Marble Cutter Name | Role | Phone | + [...] | | | | TIM[place] BUCKNER | [phone] | | | | | [address] | | | | | | [phone] | | | +--------+ + + + [...] | | | | | [place] | | | | | | [address] | | | | | | | | +--------+---------+ + + + documented as of this encounter Visit Diagnoses Not on filedocumented in this encounter"
--- OUTSIDE RECORDS SUMMARY | ~2019-01-29 | XMS | Encounter Summary ---
Demographics + + + | Address | [address] | | | [place] [address] | + + + | Home Phone | | + + + | Preferred Language | Unknown | + + + | Marital Status | | + + + | Faith Affiliation | Unknown | + + + | Race | Unknown | + + + | Ethnic Group | Unknown | + + + Author + + + | Author | [facility] | | | and [place] | + + + | Organization | [facility] | | [...] Team Providers + +------+ + | Care It Web Development Consultant Name | Role | Phone | + +------+ + | Kelvin Theodore MD | PCP | | + +------+ + Encounter Details +--------+ + + + + | Date | Type | Department | Care Team | Description | +--------+ + + + + | 04/14/ | Orders Only | [facility] | Conversion | | | 2018 | | INFECTIOUS DISEASE | Transaction, | | | | | [address] | Provider Unknown | | | | | TIMI BUCKNER | [phone] | | | | | [address] | | | | | | [phone] | | | +--------+ + + + [...] [place] | | | | | | [address] | | | | | | | [...]
--- OUTSIDE RECORDS SUMMARY | ~2019-01-29 | XMS | Encounter Summary ---
Demographics + + + | Address | [address] | | | [place] [address] | + + + | Home Phone | | + + + | Preferred Language | Unknown | + + + | Marital Status | | + + + | Rastafarian Affiliation | Unknown | + + + | Race | Unknown | + + + | Ethnic Group | Unknown | + + + Author + + + | Author | [facility] | | | and [place] | + + + | Organization | [facility] | | [...] Team Providers + +------+ + | Care Geriatric Nurse Name | Role | Phone | + [...] [place] | | | | | [place], [place] | [address] | | | | | [address] | | | | | | [phone] | | | +--------+ + + + [...] [place] | | | | | | [address] | | | | | | | [...] | 56.79 cm GARETT Vmax: 1.32 cm2 GARETT (VTI): 1.51 cm2 AVAI Vmax: | | [...] TR Vmax: | | | 3.48 m/s Record Maker: AMY Authenticated by: PATRIC CULP MD | | | Report Date/Time: -- [id number]:17 | | + + + + + [...] cmLVIDd: 5.07 cmLVPWd: 1.18 cmLVOT Area: 3.18 [id number] Diam: | | 2.01 cm%FS: 39.73 %EF(Teich): [...] mlLAESV Index (A-L): 37.40 ml/m2LAAs A2C: 24.20 [id number] A-L A2C: 84.52 | | mlLALs A2C: 5.88 cmLAAs A4C: 23.23 [id number] A-L A4C: 71.04 mlLALs A4C: 6.45 | | cmRAAs: 20.83 [id number] A-L: 64.31 mlRAESV MOD: 60.73 mlRALs: 5.73 cmTAPSE: | | 2.29 cmAV maxP.74 mmHgAV meanP.17 mmHgAV Vmax: 3.07 m/Citlaly Vmean: 2.00 | | m/Citlaly VTI: 56.79 cmAVA Vmax: 1.32 cm2AVA (VTI): 1.51 [id number] Vmax: 0.00 | | cm2/m2AVAI (VTI): 0.00 [...] 1.02 m/sMV VTI: 51.46 cmMVA (VTI): 1.66 [id number] | | e': 0.07 m/sSeptal E/e': 23.15RAP: 5 mmHgRVSP: 53.57 mmHgTR maxP.57 | | mmHgTR Vmax: 3.48 m/s Record Maker: DHAuthenticated by: Lynda RODARTE | | Date/Time: -- [id number]:24:17 IMPRESSION: 1. Left ventricular systolic function | [...] |TR Vmax: 3.48 m/s | | | |Record Maker: | |Authenticated by: PATRIC CULP MD | |Report Date/Time: -- [id number]:24:17 | | | |IMPRESSION: | |1. Left [...]
--- OUTSIDE RECORDS SUMMARY | ~2019-01-29 | XMS | Clinical Summary ---
Demographics + + + | Address | [address] | | | [place] [address] | + + + | Home Phone | | + + + | Preferred Language | Unknown | + + + | Marital Status | | + + + | Orthodoxy Affiliation | Unknown | + + + | Race | Unknown | + + + | Ethnic Group | Unknown | + + + Author + + + | Author | [facility] (Historical as of | | | 10-20-18) | + + + | Organization | [facility] (Historical as of | | | 10-20-18) | + + + | Address | Unknown | + + + | Phone | Unavailable | + + + Support + + +---------+ + | Name | Relationship | Address | Phone | + + +---------+ + | Ruby Loving | ECON | Unknown | | + + +---------+ + Care Team Providers + +------+ + | Care Pipe Puller Name | Role | Phone | + +------+ + | Kelvin Theodore MD | PP | | + +------+ + Allergies + + + + + + | Active Allergy | Reactions | Severity | Noted | Comments | | | | | Date | | + + + + + + | Gentamicin | Hives | High | 02/23/20 | | | | | | 17 | | + + + + + + Current Medications + + +--------+---------+------+------+-------+ | Prescription | Sig. | Disp. | Refills | Star | End | Statu | | | | | | t | Date | s | | | | | | Date | | | + + +--------+---------+------+------+-------+ | IRON PO | Take 28 mg by mouth | | | | | Activ | | | daily. | | | | | e | + + +--------+---------+------+------+-------+ | Probiotic Product | Take 1 tablet by | | | | | Activ | | (PROBIOTIC DAILY PO) | mouth daily. | | | | | e | + + +--------+---------+------+------+-------+ | aspirin 81 MG | Take 81 mg by mouth | | | | | Activ | | tablet | daily. | | | | | e | + + +--------+---------+------+------+-------+ | allopurinol | Take 300 mg by mouth | | | | | Activ | | (ZYLOPRIM) 300 MG | daily. | | | | | e | | tablet | | | | | | | + + +--------+---------+------+------+-------+ | warfarin | Take 5 mg by mouth | | | | | Activ | | (COUMADIN) 5 MG | daily. | | | | | e | | tabletIndications: | | | | | | | | followed by St | | | | | | | | [facility]ja | | | | | | | + + +--------+---------+------+------+-------+ | rivastigmine | Take 4.5 mg by mouth | | | | | Activ | | (EXELON) 4.5 MG | 2 (two) times | | | | | e | | capsule | daily. | | | | | | + + +--------+---------+------+------+-------+ | atorvastatin | Take 20 mg by mouth | | | | | Activ | | (LIPITOR) 20 MG | daily. | | | | | e | | tablet | | | | | | | + + +--------+---------+------+------+-------+ | carvedilol (COREG) | Take 12.5 mg by | | | | | Activ | | 25 MG tablet | mouth 2 (two) times | | | | | e | | | daily with meals. | | | | | | + + +--------+---------+------+------+-------+ | escitalopram | Take 10 mg by mouth | | | | | Activ | | (LEXAPRO) 10 MG | daily. | | | | | e | | tablet | | | | | | | + + +--------+---------+------+------+-------+ | lisinopril | TAKE ONE TABLET BY | 60 | 2 | 05/1 | | Activ | | (ZESTRIL) 10 MG | MOUTH EVERY DAY | tablet | | 6/20 | | e | | tablet | | | | 19 | | | + + +--------+---------+------+------+-------+ | finasteride | Take 5 mg by mouth | | | | | Activ | | (PROSCAR) 5 MG | daily. | | | | | e | | tablet | | | | | | | + + +--------+---------+------+------+-------+ Active Problems + + + | Problem | Noted Date | + + + | E coli bacteremia | 10/16/2018 | + + + | Dissection of thoracoabdominal aorta (HCC) | 12/11/2017 | + + + + [...] | + + + | Morbid obesity (HCC) | 02/22/2017 | + + + | Hypertension | 06/26/2015 | + + + | LUBNA on CPAP | 12/15/2014 | + + + Immunizations + + + + | Name | Dates Previously Given | Next Due | + + + + | Pneumococcal | 03/11/2014 | | | Conjugate 7-valent | | | + + + + | Pneumococcal | 08/26/2014, 03/06/2005 | | | Polysaccharide | | | | 23-valent | | | + + + + | Tdap | 08/11/2015, 01/20/2014 | | + + + + Family History + + +------+ + | Medical History | Relation | Name | Comments | + + +------+ + | Coronary art dis | Mother | | | + + +------+ + + +------+ + + | Relation | Name | Status | Comments | + +------+ + + | Father | | | [place] | | | | (Age | | | | | 73) | | + +------+ + + | Mother | | | hx of bypass | | | | (Age | | | | | 75) | | + +------+ + + Social [...] + +---------+ + | Alcohol Use | Drinks/We | oz/Week | Comments | | | ek | | | + + +---------+ + | No | | | | + + +---------+ + + + + | Sex Assigned at | Date Recorded | | | | + + + | Not on file | | + + + Last Filed Vital Signs + + + + | Vital Sign | Reading | Time Taken | + + + + | Blood Pressure | 126/55 | 10/16/2018 2:59 PM PDT | + + + + | Pulse | 63 | 10/16/2018 2:59 PM PDT | + + + + | Temperature | 37.4 C (99.4 F) | 10/16/2018 2:59 PM PDT | + + + + | Respiratory Rate | 16 | 10/16/2018 2:59 PM PDT | + + + + | Oxygen Saturation | 93% | 10/16/2018 2:59 PM PDT | + + + + | Inhaled Oxygen | - | - | | Concentration | | | + + + + | Weight | 108.8 kg (239 lb | 10/16/2018 2:59 PM PDT | | | 12.8 oz) | | + + + + | Height | 172.7 cm (5' 8") | 05/09/2018 11:15 AM PST | + + + + | Body Mass Index | 36.46 | 10/16/2018 2:59 PM PDT | + + + + Plan of Treatment + + + + + | Health Maintenance | Due Date | Last Done | Comments | + + + + + | Vaccine: Zoster (1 | | | | | of 2) | 0 | | | + + + + + | Vaccine: | | 08/26/2014, 03/06/2005 | | | Pneumococcal 65+ | 6 | | | | Low/Medium Risk (2 | | | | | of 2 - [...] filefrom Last 3 Months Insurance + +--------+ +------+-------+ + | Payer | Benefi | Subscriber | Type | Phone | Address | | | t Plan | ID | | | | | | / | | | | | | | Group | | | | | + +--------+ +------+-------+ + | MEDICARE | MEDICA | [id number] | | | [address] | | | RE | | | | [place] [address] | | | IP-OP | | | | | + +--------+ +------+-------+ + | COMMERCIAL OTHER | COMMER | [id number] | | | | | | CIAL | | | | | | | GENERI | | | | | | | C PLAN | | | | | + +--------+ +------+-------+ + + +--------+ +--------+ + + | Guarantor Name | Accoun | Relation to | Date | Phone | Billing Address | | | t Type | Patient | of | | | | | | | | | | + +--------+ +--------+ + + | ARTUR LOVING | Person | Self | [birth year] Home: | [address] [employer]PER[employer] STATEMENT [employer]KS | | | al/Fam | | 1941 | [phone] | [place] [address] | | | mark | | | [phone] | | + +--------+ +--------+ + +
--- OUTSIDE RECORDS SUMMARY | ~2019-01-29 | XMS | Encounter Summary ---
Demographics + + + | Address | [address] | | | [place] [address] | + + + | Home Phone | | + + + | Preferred Language | Unknown | + + + | Marital Status | | + + + | Catholic Affiliation | Unknown | + + + | Race | Unknown | + + + | Ethnic Group | Unknown | + + + Author + + + | Author | [facility] | | | and [place] | + + + | Organization | [facility] | | [...] Team Providers + +------+ + | Care Public Relations Professional Name | Role | Phone | + [...] | [address] | [place], [place] | aorta (HCC) (Primary | | | | [address] [place] [address] | [address] | Dx); Essential | | | | [place] | | hypertension; Status | | | | [address] | | post mechanical | | | | [phone] | | aortic valve | | | [...] Had another bout of infection, admitted to [facility] on 29 September 2018, transfer red to [facility] in [place]. Had gram-negative bacteremia that was treated with antibiot ics. Source was thought to be gastrointestinal. Previously evaluated in [facility] in Jan 2018 secondary to recurrent upper right quadrant and chest pain pressure. Was taken to [facility] where he was found to have cholelithiasis [...] TRIG, HDL, LDLEX, GLUF, TSH EK11/20/2017 From [facility] showed sinus bradycardia otherwise normal EKG. Last Echo: 10/03/2018 Reported from [facility] in [place]. Normal LV size and function EF 70%. [...] . Follows up with cardiothoracic surgery in [place]. 2. Hypertension controlled blood pressure. 3. Recurrent [...] continue to follow-up with [facility] in [facility]. Discussed in length with the patient weight [...] Cardiology | Marcin Jon, | | | 2019 | Visit | | MD Tariq HARRIS | | | | | | [place] [facility] | | | | | | [id number] | | | | | | | [...]
--- OUTSIDE RECORDS SUMMARY | ~2019-01-29 | XMS | Encounter Summary ---
Demographics + + + | Address | [address] | | | [place] [address] | + + + | Home Phone | | + + + | Preferred Language | Unknown | + + + | Marital Status | | + + + | Shinto Affiliation | Unknown | + + + | Race | Unknown | + + + | Ethnic Group | Unknown | + + + Author + + + | Author | [facility] | | | and [place] | + + + | Organization | [facility] | | | [...] Team Providers + +------+ + | Care Brazer Assembler Name | Role | Phone | + [...] TIMI BURNETT | | | | | [place], [place] | [address] | | | | | [address] | | | | | | [phone] | | | +--------+ + + + [...] [place] | | | | | | [address] | | | | | | | [...] 1.30 m/s | | | MV Dec Treutlen: 5.24 m/s2 MV DecT: 314.05 ms MV [...] RV s': 0.14 m/s | | | [employer] Department: Authenticated by: Marcin Lyon Report Date/Time: | [...] cmLVPWd: 1.32 | | cmLVOT Area: 3.70 [id number] Diam: 2.17 cm%FS: 41.78 %EF(Teich): 72.54 %ESV(Teich): [...] (A-L): 30.19 ml/m2LAAs A2C: | | 22.57 ml0WULOB A-L A2C: 74.44 mlLALs A2C: 5.81 cmLAAs A4C: 20.14 [id number] A-L A4C: | | 58.52 mlLALs A4C: 5.88 cmRAAs: 19.72 [id number] A-L: 54.80 mlRAESV MOD: 54.78 | | mlRALs: 6.02 cmTAPSE: 2.96 cmAV maxP.09 mmHgAV meanP.67 mmHgAV Vmax: | | 3.00 m/Citlaly Vmean: 1.98 m/Citlaly VTI: 66.16 cmAVA Vmax: 1.39 cm2AVA (VTI): 1.70 | | [id number] Vmax: 0.00 cm2/m2AVAI (VTI): 0.00 cm2/m2LVOT maxP.10 mmHgLVOT meanPG: | | 2.48 mmHgLVSI Dopp: 51.31 ml/m2LVSV Dopp: 112.89 mlLVOT Vmax: 1.12 m/sLVOT | | Vmean: 0.72 m/sLVOT VTI: 30.45 cmMV A Chad: 1.30 m/sMV Dec Treutlen: 5.24 m/s2MV | | DecT: 314.05 msMV E Chad: 1.64 m/sMV E/A Ratio: 1.25MV PHT: 91.07 msMVA By PHT: | | 2.41 [id number] e': 0.05 m/sSeptal E/e': 30.11Lateral e': 0.06 m/sLateral E/e': | | 24.09RAP: 5 mmHgRVSP: 38.85 mmHgTR maxP.85 mmHgTR Vmax: 2.90 m/sRV s': | | 0.14 m/s [employer] Department:Authenticated by: Marcin Ramirez Date/Time: 10-01-2018 | | 17:15:46 IMPRESSION: 1. The left ventricle is normal in size with normal systolic | | function EF 60-65%.2. The right ventricle is normal in size and function.3. Normally | | functioning mechanical aortic prosthetic valve, St Aleks 25 mm.4. There is no pericardial | | effusion.5. Limited views, if clinically indicated [facility] echocardiogram is | | recommended. | |Ao [...] A Chad: 1.30 m/s | |MV Dec Treutlen: 5.24 m/s2 | |MV DecT: 314.05 ms [...] |RV s': 0.14 m/s | | | |[employer] Department: | |Authenticated by: Marcin Lyon | |Report [...] | |5. Limited views, if clinically indicated [facility]. | + + documented in this encounter Visit Diagnoses Not on filedocumented in this encounter"
--- OUTSIDE RECORDS SUMMARY | ~2019-01-29 | XMS | Clinical Summary ---
Demographics + + + | Address | [address] | | | [place] [address] | + + + | Home Phone | | + + + | Preferred Language | Unknown | + + + | Marital Status | | + + + | Christian Affiliation | Unknown | + + + | Race | Unknown | + + + | Ethnic Group | Unknown | + + + Author + + + | Author | [facility] (Historical as of | | | 10-20-18) | + + + | Organization | [facility] (Historical as of | | | 10-20-18) [...] Team Providers + +------+ + | Care Graphics Edit Technician Name | Role | Phone | + [...] + + | Father | | | MD | | | | (Age | | [...] +------+-------+ + | MEDICARE | MEDICA | [id number] | | | [address] | | | RE | | | | [place] [address] | | | IP-OP | | | | | + +--------+ +------+-------+ + | COMMERCIAL OTHER | COMMER | [id number] | | | | | | CIAL [...] [birth year] | Home: | [address]ICE [address]ST | | | al/Fam | | 1941 | [phone] | [place] [address] | | | mark | | | [phone] | | + +--------+ +--------+ + +
--- OUTSIDE RECORDS SUMMARY | ~2019-01-29 | XMS | Encounter Summary ---
Demographics + + + | Address | [address] | | | [place] [address] | + + + | Home Phone | | + + + | Preferred Language | Unknown | + + + | Marital Status | | + + + | Roman Catholic Affiliation | Unknown | + + + | Race | Unknown | + + + | Ethnic Group | Unknown | + + + Author + + + | Author | [facility] | | | and [place] | + + + | Organization | [facility] | | | [...] Team Providers + +------+ + | Care Decal Cutter Name | Role | Phone | [...] | | | | [place] | [phone] | | | | | [address] | | | | | | [phone] | | | +--------+ + + + [...] [place] | | | | | | [address] | | | | | | | | +--------+---------+ + + + documented as of this encounter Visit Diagnoses Not on filedocumented in this encounter"
--- OUTSIDE RECORDS SUMMARY | ~2019-01-29 | XMS | Encounter Summary ---
Demographics + + + | Address | [address] | | | [place] [address] | + + + | Home Phone [...] Team Providers + +------+ + | Care Physical Security Manager Name | Role | Phone | + [...] + + | 10/29/ | Telephone | [facility] | Kenny Garcia DO | Coordination Of Care | | 2019 | | INFECTIOUS DISEASE | [address] | (Dr. Tejada) | | | | [address] | [place] [address] | | | | | [place], [place] | [phone] | | | | | [address] | | | | | | [phone] | | | +--------+ + + + [...] [place] | | | | | | [address] | | | | | | | | +--------+---------+ + + + documented as of this encounter Visit Diagnoses Not on filedocumented in this encounter"
--- OUTSIDE RECORDS SUMMARY | ~2019-01-29 | XMS | Encounter Summary ---
Demographics + + + | Address | [address] | | | [place] [address] | + + + | Home Phone | | + + + | Preferred Language | Unknown | + + + | Marital Status | | + + + | Denominational Affiliation | Unknown | + + + [...] Team Providers + +------+ + | Care Global Chief Creative Officer Name | Role | Phone | + +------+ + | Kelvin Theodore MD | PCP | | + +------+ + Encounter Details +--------+ + + + + | Date | Type | Department | Care Team | Description | +--------+ + + + + | 07/19/ | Orders Only | [facility] | Marcin Lyon, | | | 2018 | | CARDIOLOGY SITA | [address] | | | | | [address] | [place], [place] | | | | | [place], [place] | [address] | | | | | [address] | | | | | | [phone] | | | +--------+ + + + [...] [place] | | | | | | [address] | | | | | | | | +--------+---------+ + + + documented as of this encounter Visit Diagnoses Not on filedocumented in this encounter"
--- OUTSIDE RECORDS SUMMARY | ~2019-01-29 | XMS | Encounter Summary ---
Demographics + + + | Address | [address] | | | [place] [address] | + + + | Home Phone | | + + + | Preferred Language | Unknown | + + + | Marital Status | | + + + | Alevism Affiliation | Unknown | + + + | Race | Unknown | + + + | Ethnic Group | Unknown | + + + Author + + + | Author | [facility] | | | and [place] | + + + | Organization | [facility] | | [...] Team Providers + +------+ + | Care Materials Engineer Name | Role | Phone | + +------+ + | Kelvin Theodore MD | PCP | | + +------+ + Encounter Details +--------+ + + + + | Date | Type | Department | Care Team | Description | +--------+ + + + + | 07/19/ | Orders Only | [facility] | Marcin Lyon, | | | 2018 | | CARDIOLOGY SITA | [address] | | | | | [address] | [place], [place] | | | | | [place], [place] | [address] | | | | | [address] | | | | | | [phone] | | | +--------+ + + + [...] [place] | | | | | | [address] | | | | | | | | +--------+---------+ + + + documented as of this encounter Visit Diagnoses Not on filedocumented in this encounter"
[~2019-01-29 15:23] MED LIST changes: +ADVIL200 MG PO; +BENADRYL ALLERG25 MG PO; +COREG12.5 MG PO; -COREG25 MG PO; +FAMOTIDINE40 MG PO; +FINASTERIDE5 MG PO; +INDOMETHACIN50 MG PO; +KEFLEX500 MG PO; +WARFARIN SODIU2.5 MG PO
--- NOTE | 2019-01-29 19:50 | NUR ---
RECEIVED REPORT FROM KAREN BLEVINS FROM ED. PT TO BE ADMITTED TO ROOM 112
--- NOTE | 2019-01-29 20:15 | NUR ---
PT ADMITTED TO ROOM 112 FROM ED. A/0 WITH DEMENTIA DX WELL. SBA TRANSFER FROM STRETCHER TO BED, SHAKING, STATED HE WAS COLD. COVERED WITH WARM BLANKET, AND GRANDSON PRESENT. FAMILY AWARE TO NO FOOD UNTIL CTSCAN RESULTS BACK.
--- NOTE | 2019-01-29 21:36 | NUR ---
PT UP TO BATHROOM WITH SON ASSIST. STATES FEELS BETTER NOW THAN WHEN [facility]. ATE [employer] FOR DINNER, DRINKING COFFEE AT THIS TIME.
--- NOTE | 2019-01-29 22:12 | NUR ---
ASSESSMENT COMPLETED. SCHEDULED MEDS PROVIDED. PT UP TO CHAIR. ICE WATER PROVIDED. IV FLUSHED WELL. PAIN 1/10, CRAMPING. PT DECLINES PAIN INTERVETIONS AT THIS TIME. CALL LIGHT IN REACH.
--- NOTE | 2019-01-29 23:53 | NUR ---
PT AWAKE IN ROOM. UP TO BR. PT UP IN CHAIR. IV FLUIDS INFUSING PER ORDER. NO OTHER NEEDS AT THIS TIME. CALL LIGHT IN REACH.
--- NOTE | 2019-01-30 01:25 | NUR ---
ANSWERED CALL LIGHT. SBA TO THE BATHROOM. PATIENT USING URINAL. PATIENT IS BACK UP IN THE CHAIR. V/S AND I&O TAKEN AND RECORDED. NO OTHER NEEDS AT THIS TIME.
--- NOTE | 2019-01-30 02:43 | NUR ---
ASSESSMENT COMPLETED. VS COMPLETED. SCHEDULED MEDS PROVIDED. ICE WATER PROVIDED. NO OTHER NEEDS AT THIS TIME. PT UP IN CHAIR, CALL LIGHT IN REACH.
--- NOTE | 2019-01-30 05:33 | NUR ---
PT HAS NOT SLEPT WELL THIS SHIFT. HE WAS UP IN THE CHAIR MOST THE SHIFT. PT REPORTS 1/10 PAIN IN LLQ. IV CDI, WNL, FLUSHED WELL. VSS, A&O X4. PT HAD ELEVATED TEMP THAT WAS MANAGED WITH PRN ANTI-PYRETIC. PT DENIES NEED FOR PAIN MANAGEMENT. PT TOLERATED REGULAR DIET, IV MEDS AND FLUIDS WELL. SBA IN ROOM.
--- NOTE | 2019-01-30 06:25 | NUR ---
PT UP TO BR. SCHEDULED MED PROVIDED. NO OTHER NEEDS AT THIS TIME. PT UP IN CHAIR. CALL LIGHT IN REACH.
--- NOTE | 2019-01-30 07:50 | NUR ---
PATIENT SITTING UP IN CHAIR. ICE WATER GIVEN. CALL LIGHT WITHIN REACH. NO OTHER NEEDS AT THIS TIME
--- NOTE | 2019-01-30 07:57 | NUR ---
MORNING ASSESSMENT DONE, PT UP TP BATHROOM TO VOID WITH SBA, PT IN CHAIR EATING BREAKFAST, PT STATES PAIN RIGHT FLANK 2/10 INTERMITTANT, PT DENIES OTHER NEEDS AT THIS TIME, CALL LIGHT WITHIN REACH. PT STATES DESIRE TO GO HOME TODAY TO BE INVOLVED WITH THANKSGIVING ACTIVITIES.
--- NOTE | 2019-01-30 09:08 | NUR ---
PATIENT CONTINUES TO BE AFEBRILE, CONTINUES TO RATE RIGHT FLANK PAIN 2/10.
--- NOTE | 2019-01-30 10:39 | NUR ---
PATIENT SITTING UP IN CHAIR. THE STUDENT RN GOT THE VITAL SIGNS. I&O DONE. CALL LIGHT WITHIN REACH. NO OTHER NEEDS AT THIS TIME
--- NOTE | 2019-01-30 11:00 | NUR ---
In to speak with Daniel. 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 Lives with his and states they split house hold chores. He denies use of DME. Would like to dc to home today.
--- NOTE | 2019-01-30 11:09 | NUR ---
CALL LIGHT ANSWERED. PATIENT SITTING UP IN CHAIR. PATIENT GOES TO WALK IN THE HALLWAY. ONE PERSON ASSISTING. PATIENT BACKS TO CHAIR. LINENS CHANGED. GOWN CHANGED. PATIENT REFUSED TO TAKE A SHOWER TODAY. CALL LIGHT WITHIN REACH. NO OTHER NEEDS AT THIS TIME
[2019-01-30] MEDS ORDERED: AUGMENTIN 875-1 EACH PO (11:37)
--- NOTE | 2019-01-30 13:13 | NUR ---
DISCHARGE INSTRUCTIONS GIVEN TO PATIENT/SPOUSE. SPOUSE GOING TO GET PRESCRIPTIONS AND THEN COMING BACK FOR PATIENT. PATIENT DENIES PAIN, GIVEN TYLENOL FOR MILD TEMP. DISCUSSED WITH DR. BACON.
--- NOTE | 2019-01-30 13:54 | NUR ---
PATIENT SITTING UP IN CHAIR. RN IN ROOM. VITAL SIGNS AND I&O DONE. CALL LIGHT WITHIN REACH. NO OTHER NEEDS AT THIS TIME
== END 2019-01-30 14:20 | disposition home or self-care (01) ==
LOC: ED 15:23 → MS 15:24
PROVIDERS: ADMIT Internal Medicine
DX: R50.9 Fever, unspecified (principal); K76.89 Other specified diseases of liver; R10.31 Right lower quadrant pain; G20 Parkinson's disease; F02.80 Dementia in other diseases classified elsewhere, unspecified severity, without behavioral disturbance, psychotic disturbance, mood disturbance, and anxiety; I11.0 Hypertensive heart disease with heart failure; I50.9 Heart failure, unspecified; E78.5 Hyperlipidemia, unspecified; G47.30 Sleep apnea, unspecified; F39 Unspecified mood [affective] disorder; E66.9 Obesity, unspecified; M10.9 Gout, unspecified; F17.220 Nicotine dependence, chewing tobacco, uncomplicated; Z95.2 Presence of prosthetic heart valve; Z88.1 Allergy status to other antibiotic agents; Z88.8 Allergy status to other drugs, medicaments and biological substances; Z79.01 Long term (current) use of anticoagulants; Z79.899 Other long term (current) drug therapy; Z79.82 Long term (current) use of aspirin
CPT/HCPCS: 36415; 71045; 74176; 80048; 80053; 81001; 83605; 83735; 84100; 85025; 85610; 87040; 87502; 96360; 96361; 96365; 96366; 96375; 96376; 99285-25; C9113; G0378; J2543; J3480; J7030; J7060; J7121

== ENCOUNTER 2019-04-02 14:03 | Inpatient (IN) | payer MEDICARE, OTHER ==
[~2019-04-02] VITALS: Ht 172.7 cm; Wt 110.2 kg
[~2019-04-02 14:03] MED LIST changes: +AUGMENTIN 875-1 EACH PO; -RIVASTIGMINE4.5 MG PO
--- OUTSIDE RECORDS SUMMARY | 2019-04-02 14:06 | XMS ---
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 Malika VISIT COUNT (12 MO.) Sheri Jorgensen TOTAL 4 NOTE: Visits indicate total known visits. ED/UCC VISIT TRACKING (12 MO.) 04/02/2019 14:04 [facility] [place] TYPE: Emergency COMPLAINT: - FEVER, UTI, REF FROM CLINIC 01/29/2019 15:23 [facility] [place] TYPE: Emergency COMPLAINT: - FEVER 11/30/2018 19:15 [facility] [place] TYPE: Emergency COMPLAINT: - POSS BLOOD INFECTION,FEVER DIAGNOSES: - Fever, unspecified - Essential (primary) hypertension - termination clerk (current) use of aspirin - Other fdc (current) drug therapy - Allergy status to other antibiotic agents status 09/29/2018 20:39 [facility] [place] TYPE: Emergency COMPLAINT: - FEVER AND CHILLS INPATIENT VISIT TRACKING (12 MO.) 01/29/2019 15:24 [facility] [place] TYPE: Observation COMPLAINT: - FEVER DIAGNOSES: - Parkinson's disease - Heart failure, unspecified - Other specified diseases of liver - Sleep apnea, unspecified - Hyperlipidemia, unspecified - Other ocean transportation intermediary (current) drug therapy - Hypertensive heart disease with heart failure - Fever, unspecified - Unspecified mood [affective] disorder - Allergy status to oth drug/meds/biol subst status - Nicotine dependence, chewing tobacco, uncomplicated - Gout, unspecified - Right lower quadrant pain - prison (current) use of anticoagulants - Obesity, unspecified - Allergy status to other antibiotic agents status - Presence of prosthetic heart valve - 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 - prison (current) use of aspirin 10/02/2018 22:20 [facility] [place] TYPE: Renal DIAGNOSES: - Dissection of thoracoabdominal aorta - Presence of prosthetic heart valve - Essential (primary) hypertension - Bacteremia - Other chest pain 10/01/2018 11:37 [facility] [place] TYPE: Medical Surgical COMPLAINT: - FEVER DIAGNOSES: - 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 - Chronic diastolic (congestive) heart failure - Allergy status to other antibiotic agents status - Nicotine dependence, chewing tobacco, uncomplicated - Gout, unspecified - Unspecified mood [affective] disorder - Oth bacterial agents as the cause of diseases classd elswhr - Body mass index (BMI) 36.0-36.9, adult - prison (current) use of aspirin - Obesity, unspecified - termination clerk (current) use of anticoagulants - Hyperlipidemia, unspecified - Parkinson's disease - Fever, unspecified - Obstructive sleep apnea (adult) (pediatric) - Dementia with Lewy bodies - Bacteremia - Presence of prosthetic heart valve - Other ocean transportation intermediary (current) drug therapy - Dissection of abdominal aorta - Hypertensive heart disease with heart failure [email or web address]
[2019-04-02] MEDS ORDERED: PEPCID40 MG PO (14:22)
[2019-04-02] MEDS ORDERED: ASPIR 8181 MG PO (14:22)
[2019-04-02] MEDS ORDERED: LEXAPRO20 MG PO (14:23)
[2019-04-02] MEDS ORDERED: COUMADIN5 MG PO (14:23)
[2019-04-02] MEDS ORDERED: COREG12.5 MG PO (14:24)
[2019-04-02] MEDS ORDERED: XARELTO2.5 MG PO (14:24)
[2019-04-02] MEDS ORDERED: LIPITOR20 MG PO (14:25)
[2019-04-02] MEDS ORDERED: PROSCAR5 MG PO (14:25)
[2019-04-02] MEDS ORDERED: ZYLOPRIM300 MG PO (14:26)
--- NOTE | 2019-04-02 19:30 | NUR ---
BEDSIDE REPORT RECEIVED FROM KAREN RIOJAS. pt UP IN CHAIR. FAMILY IN ROOM. NO REQUESTS AT THIS TIME.
--- NOTE | 2019-04-02 20:12 | NUR ---
pt UP IN CHAIR. ASSESSMENT COMPLETE. SCHEDULED BLOOD PRESSURE MEDICATION ADMINISTERED. VSS. URINAL EMPTIED. AFEBRILE. CALL LIGHT AND PERSONAL SUPPLIES IN REACH. ICE WATER PROVIDED.
--- NOTE | 2019-04-02 21:10 | NUR ---
IV ANTIBIOTIC COMPLETE. SL WNL. RT IN ROOM FOR CPAP ASSISTANCE. CALL LIGHT IN REACH. NO REQUESTS AT THIS TIME.
--- NOTE | 2019-04-02 23:26 | NUR ---
CHECKED ON pt. RESTING IN CHAIR WITH EYES CLOSED. CPAP ON. CALL LIGHT IN REACH.
--- NOTE | 2019-04-03 02:09 | NUR ---
pt SLEEPING IN CHAIR WITH CPAP ON. AWAKENS TO VOICE. VSS. ASSESSMENT COMPLETE. PILLOW PROVIDED. pt REQUESTING TO CONTINUE SLEEPING IN CHAIR. CALL LIGHT IN REACH.
--- NOTE | 2019-04-03 03:10 | NUR ---
Patient is resting, call light in reach, fresh water given.
--- NOTE | 2019-04-03 05:06 | NUR ---
pt SLEPT WELL IN CHAIR THROUGHOUT SHIFT. HOME CPAP. VSS. IV ANTIBIOTIC, IV SL. VOIDING QS. AFEBRILE. USING CALL LIGHT APPROPRIATELY. SBA.
--- NOTE | 2019-04-03 05:20 | NUR ---
PHONE CALL TO CCU TO UPDATE DR. JOHN ON pt BP. RN PAMELA TO RELAY MESSAGE REGARDING HTN.
--- NOTE | 2019-04-03 06:00 | NUR ---
pt SITTING UP IN CHAIR. BREAKFAST ORDER OBTAINED, COFFEE PROVIDED. NO ADDITIONAL REQUESTS. DENIES TOILETING NEEDS. CALL LIGHT IN REACH.
--- NOTE | 2019-04-03 07:15 | NUR ---
Report received, orders acknowledged. Patient sitting up in chair watching tv. Manual blood pressure taken, 190/78 with a radial pulse of 51. Dr. Carrasquillo notified, orders acknowledged to administer blood pressure medication.
--- NOTE | 2019-04-03 08:15 | NUR ---
AM medications given. Patient sitting up in chair eating breakfast. Denies pain or further needs. Water and coffee refreshed. Call light within reach.
--- NOTE | 2019-04-03 09:15 | NUR ---
Blood pressure reassessed, systolic BP of 148. Will continue to monitor.
--- NOTE | 2019-04-03 10:11 | NUR ---
Patient sleeping in chair, respirations even and unlabored. Call light within reach.
[2019-04-03] MEDS ORDERED: RIVASTIGMINE4.5 MG PO (10:34)
--- NOTE | 2019-04-03 10:45 | NUR ---
Spoke with Ruby and Daniel. Pt. lives in [place] with . Son, Mitchel, lives near and assists them. Daniel states they are active especially in the summer months. He does not use any devices for mobility, does has a CPAP. Plans on dc to home when discharged with .
--- NOTE | 2019-04-03 12:59 | NUR ---
NOTIFIED OF POSITIVE BLOOD CULTURE.
--- NOTE | 2019-04-03 13:00 | NUR ---
Dr. Carrasquillo in room to discuss POC with patient
--- NOTE | 2019-04-03 14:00 | NUR ---
SPOKE WITH PT AND HIS , HAD A GOOD DISCUSSION ABOUT THE INFORMATION THAT WAS IN THE PACKET. PT ABLE TO VERBALIZE INFORMATION. ASKED QUESTIONS ABOUT THINGS ON THE WHITE BOARD AND STATED UNDERSTANDING OF THIS.
--- NOTE | 2019-04-03 14:27 | NUR ---
PT SITTING IN CHAIR, VISITING WITH . BOTH VERY PLEASANT PEOPLE AND SEEM TO BE DEALING WITH LITTLE "SETBACK" WELL. HAD PRAYER, WILL FOLLOW NEEDED
--- NOTE | 2019-04-03 14:30 | NUR ---
Imaging in room performing ECHO
--- NOTE | 2019-04-03 16:17 | NUR ---
Pharmacy in room to discuss POC with patient. Assessment complete, medications given. No further needs at this time, call light within reach.
--- NOTE | 2019-04-03 16:50 | NUR ---
Medications reconciled using pharmacy records and patient interview. Adverse reaction to lisinopril (angioedema) added to Allergy/Adverse Reaction profile
--- NOTE | 2019-04-03 18:00 | NUR ---
Patient sitting up in chair, on the telephone. Denies needs at this time, call light within reach.
--- NOTE | 2019-04-03 19:00 | NUR ---
sSHIFT REPORT RECIEVED FROM SHINE JONES. PT UP IN CHAIR, WATCHING TV. NO NEEDS AT THIS TIME. CALL LIGHT IN REACH.
--- NOTE | 2019-04-03 20:46 | NUR ---
SCHEDULED MEDS PROVIDED. IV FLUSHED, CDI, WNL. PT WATCHING TV. ASSESSMENT, I&O AND VS COMPLETED. NO OTHER NEEDS, CALL LIGHT IN REACH.
--- NOTE | 2019-04-03 22:30 | NUR ---
PT AWAKE IN ROOM. UP IN CHAIR, WATCHING TV. NO NEEDS AT THIS TIME. CALL LIGHT IN REACH.
--- NOTE | 2019-04-03 22:56 | EKG ---
[facility] [address] [place], [place] [address] Signed Normal sinus rhythm Normal ECG When compared with ECG of 08-DEC-2017 04:04, No significant change was found Confirmed by RAQUEL JOHN MD ([id number]) on 04/03/2019 10:56:36 PM Electronically Signed By: RAQUEL JOHN MD 04/03/19 2256 PATIENT NAME: UNRULYARTUR MAURA Electrocardiogram DATE OF : 38 PHYSICIAN: RAQUEL JOHN MD REPORT #: [id number] REPORT IS CONFIDENTIAL AND NOT TO BE RELEASED WITHOUT AUTHORIZATION
--- NOTE | 2019-04-04 00:38 | NUR ---
PT RESITNG IN CHAIR, EYES CLOSED. RR 14, EVEN, UNLABORED. CALL LIGHT IN REACH.
--- NOTE | 2019-04-04 03:00 | NUR ---
PT RESTING IN RECLINER, EYES CLOSED. CPAP ON. RR 16, EVEN. CALL LIGHT IN REACH.
--- NOTE | 2019-04-04 05:06 | NUR ---
PT UP IN CHAIR. COFFEE AND ICE WATER PROVIDED. ASSESSMENT, I&O AND VS COMPLETED. PT UP TO BR AND BACK TO CHAIR. IV WNL. NO OTHER NEEDS AT THIS TIME. CALL LIGHT IN REACH.
--- NOTE | 2019-04-04 05:28 | NUR ---
PT HAS SLEPT WELL THIS SHIFT. PT DENIES NAUSEA OR ABD PAIN. PT HAS BEEN AFEBRILE. PT HAS EATEN SNACKS. UO SUFFICINET. VSS. PT TOLERATED HIS CPAP AND IV MEDS WELL. IV WNL, FLUSHED WELL.
--- NOTE | 2019-04-04 07:25 | NUR ---
REPORT RECEIVED FROM PAYROLL SECRETARY RN. PT IN BED WITH EYES CLOSED. RESPIRATIONS EQUAL AND NON-LABORED. CALL LIGHT IN REACH.
--- NOTE | 2019-04-04 09:34 | NUR ---
ASSESSMENT COMPLETED. PT UP IN CHAIR ALERT AND ORIENTED. REFUSING BREAKFAST D/T EARLY SNACK. VITALS TAKEN FOR MEDICATION ADMINISTRATION. PULSE 50. COREG HELD. ALL OTHER MEDICATIONS GIVEN. HEART SOUNDS WITH REGULAR RATE AND CLICK SOUND. LUNGS CLEAR. CALL LIGHT IN REACH, SON AT BEDSIDE. DENEIS PAIN OR NEEDS.
--- NOTE | 2019-04-04 10:40 | NUR ---
Spoke with pt and his . He is antsy. Likes to play solitarie. Deck of cards given. Pt states he is just waiting for his cultures to come back and plans on going home. Pt plans on dc to home with .
--- NOTE | 2019-04-04 12:26 | NUR ---
PT EATING LUNCH. FAMILY AT BEDSIDE. TALKED TO PT ABOUT AMBULATING HALLS. PT AGREEABLE TO AMBULATE AFTER LUNCH. SITTING UP IN CHAIR.
--- NOTE | 2019-04-04 13:52 | NUR ---
ROUNDED WITH DR JOHN. PLAN OF CARE DISCUSSED. QUESTIONS ANSWERED.
--- NOTE | 2019-04-04 14:15 | NUR ---
PT SITTING UP IN CHAIR NEXT TO HIS . PT IS TRYING REALLY HARD TO NOT SHOW HIS DISAPPOINTMENT WITH NOT BEING ABLE TO DC WELL HE STATED HE MIGHT HAVE TO TRANSFER. PT MENTIONED THAT WE ARE WAITING FOR BLOOD CULTURES TO COME BACK.HAD GOOD VISIT ABOUT INFECTIONS, EXTENDED A BLESSING STAFF CAME IN TO DO VS. WILL FOLLOW NEEDED
--- NOTE | 2019-04-04 17:00 | NUR ---
PT SITTING UP IN CHAIR FOR DINNER. CALL LIGHT IN REACH. DENEIS NEEDS.
--- NOTE | 2019-04-04 17:57 | NUR ---
PT HAD GOOD DAY, AMBULATED HALLS, A-SYPTOMATIC. OWN CPAP AT BEDSIDE, SITTING IN CHAIR ALL DAY. U/O QS. VITALS STABLE. PT IS ALERT AND ORIENTED.
--- NOTE | 2019-04-04 20:00 | NUR ---
PATIENT RESTING QUIETLY IN CHAIR WATCHING TV, WITH NO NEEDS AT THIS TIME. CALL LIGHT AND WATER IN REACH.
--- NOTE | 2019-04-04 21:20 | NUR ---
patient has been resting quietly in bed waching tv. with no needs thus far. call light in reach.
--- NOTE | 2019-04-04 21:47 | NUR ---
PATIENT PUTTING ON HIS CPAPA AND GOING TO SLEEP. FRESH ICE WATER GIVEN AFTER MEDS. URINAL EMPTIED AND CALL LIGHT IN REACH.
--- NOTE | 2019-04-04 23:13 | NUR ---
PATIENT HAD BEEN UP TO THE BATHROOM TO VOID IN URINAL AND RESTING QUIETLY BACK IN HIS CHAIR ON CPAP AT THIS TIME, CALL LIGHT AND WATER IN REACH.
--- NOTE | 2019-04-05 01:07 | NUR ---
PATIENT CALLED AND ASKED FOR A WARM BLANKET WHICH WAS GIVEN. PATIENT SAYS HE REALLY HASN'T SLEPT MUCH, JUST SITTING IN THE CHAIR WITH HIS CPAP ON. PATIENT SAYS HE MIGHT GET SOME SLEEP NOW. CALL LIGHT IN REACH.
--- NOTE | 2019-04-05 03:10 | NUR ---
PATIENT RESTING QUIETLY ON CPAP, EYES CLOSED, SITTING UP IN CHAIR, CALL LIGHT IN REACH.
--- NOTE | 2019-04-05 05:30 | NUR ---
PATIENT HAS BEEN UP IN THE CHAIR ALL NIGHT, AND REALLY HASN'T SLEPT EVEN WHEN HE HAS HIS CPAP ON. PATIENT WATCHING TV AND ASKED FOR A CUP A COFFEE WHICH WAS GIVEN. PATIENT HAS BEEN INDEPENDENT IN THE ROM TO THE BATHROOM USING THE URINAL AND DRINKING WATER. IV FLUSHES WELL. CALL LIGHT IN REACH. WATER GLASS REFILLED.
--- NOTE | 2019-04-05 07:11 | NUR ---
REPORT RECIEVED. PT SITTING UP IN CHAIR WITH EYES CLOSED. RESPIRATIONS EQUAL AND NON-LABORED. CALL LIGHT IN REACH
--- NOTE | 2019-04-05 07:11 | NUR ---
REPORT RECEIVED. PT IN BED, RESPIRAIOTNS EQUAL AND NON-LABORED. CALL [facility] IN REACH. NS AT 125.
--- NOTE | 2019-04-05 09:15 | NUR ---
SPOKE WITH PATIENT IN ROOM. DR JOHN JUST IN TO SEE HIM. PATIENT IS DISCHARGING TODAY. HE STATES HIS WILL BE IN TO TAKE HIM HOME. HE FEELS SAFE TO RETURN HOME. HIS ONLY CONCERN IS SOMETIMES AFFORDING MEDICATIONS OR PAYING BILLS THEY LIVE ON SOCIAL SECURITY. DISCUSSED WITH HIM THAT SOMETIMES THERE ARE ALTERNATIVE COST PROGRAMS OR RESOURCES AVAILABLE AND THE CHW AT HIS CLINIC CAN WORK WITH HIM ON THIS. HE IS AGREEABLE TO MY CONTACTING HER AND HAVING HER CALL HIM AFTER DISCHARGE. EMAIL SENT TO ALEX DELAROSA AT [facility].
--- NOTE | 2019-04-05 09:30 | NUR ---
PATIENT UP TO CHAIR. PATIENT STATES THAT HE HAD A SHOWER LAST NIGHT. CLEAN GOWN GIVEN. HANDS AND FACE WASHED. NO OTHER NEEDS AT THIS TIME. ROOM PICKED UP. FRESH ICE WATER GIVEN.
[2019-04-05] MEDS ORDERED: AMOX TR-K CLV1 EAC1 PO (09:40)
[2019-04-05] MEDS ORDERED: AMLODIPINE BESYL5 MG PO (09:41)
[2019-04-05] MEDS ORDERED: COREG12.5 MG PO (09:41)
[2019-04-05] MEDS ORDERED: LOSARTAN POTAS100 MG PO (09:42)
--- NOTE | 2019-04-05 11:46 | NUR ---
PT SITTING IN CHAIR, DRESSED AND WATCHING TV. HE MENTIONED THAT HIS BLOOD WORK CAME BACK GOOD AND HE IS READ FOR DC. JUST WAITING FOR HIS TO COME. HAD GOOD VISIT, EXTENDED A BLESSING. WILL FOLLOW NEEDED
--- NOTE | 2019-04-05 11:50 | NUR ---
DISCHARGE INSTRUCTIONS PROVIDED.
== END 2019-04-05 11:45 | disposition home or self-care (01) | DRG 871 ==
LOC: ED 14:03 → MS 17:22
PROVIDERS: ADMIT Internal Medicine
DX: R78.81 Bacteremia (principal); I71.02 Dissection of abdominal aorta; B96.1 Klebsiella pneumoniae [K. pneumoniae] as the cause of diseases classified elsewhere; K76.89 Other specified diseases of liver; I10 Essential (primary) hypertension; G47.33 Obstructive sleep apnea (adult) (pediatric); N40.0 Benign prostatic hyperplasia without lower urinary tract symptoms; E78.5 Hyperlipidemia, unspecified; F03.90 Unspecified dementia, unspecified severity, without behavioral disturbance, psychotic disturbance, mood disturbance, and anxiety; F39 Unspecified mood [affective] disorder; Z66 Do not resuscitate; Z95.2 Presence of prosthetic heart valve; Z88.1 Allergy status to other antibiotic agents; Z88.8 Allergy status to other drugs, medicaments and biological substances; Z79.01 Long term (current) use of anticoagulants; Z79.82 Long term (current) use of aspirin; Z79.899 Other long term (current) drug therapy
CPT/HCPCS: 36415; 71045; 80053; 81001; 83605; 85007; 85025; 85032; 85610; 85651; 85730; 86140; 86431; 93005; 93010; 93306; 96365; 96366; 96375; 99284-25; J0692; J0696; J1100

== ENCOUNTER 2019-07-04 21:02 | Emergency (ER) | payer MEDICARE, OTHER ==
[~2019-07-04] VITALS: Ht 172.7 cm; Wt 110.2 kg
[~2019-07-04 21:02] MED LIST changes: +AMLODIPINE BESYL5 MG PO; +AMOX TR-K CLV1 EAC1 PO; +ASPIR 8181 MG PO; +LEXAPRO20 MG PO; +LIPITOR20 MG PO; +LOSARTAN POTAS100 MG PO; +PEPCID40 MG PO; +PROSCAR5 MG PO; +RIVASTIGMINE4.5 MG PO; +XARELTO2.5 MG PO; +ZYLOPRIM300 MG PO
--- OUTSIDE RECORDS SUMMARY | 2019-07-04 21:04 | XMS ---
PreManage Notification: ARTUR TOLLIVER Security Shade Maker Events No recent Security Events currently on file CRITERIA MET - [facility] - Has Care Guidelines - History of Sepsis Dx CARE PROVIDERS SARMAD GONZALEZ Internal Medicine 04/03/2019-Current PHONE: Unknown Quique has no Care Guidelines for this patient. Care History Medical/Surgical 04/03/2019 [facility] Patient was admitted.\T\nbsp; No follow up appointment scheduled with PCP yet. 04/03/2019 [facility] - Patient is currently established with [facility]. If patient is seen in the ED during business hours. Please contact CHWs at [facility]. Care Recommendation: If this patient has had 5 or more Emergency Department visits in the last 12 months.\T\nbsp; Patient will require education on the scope and purpose of the ED as an acute care provider not a Primary Care Provider and should not be utilized for chronic conditions.\T\nbsp; These are guidelines and the provider should exercise clinical judgment when providing care. E.D. VISIT COUNT (12 MO.) 5 RAJNI Jorgensen TOTAL 5 NOTE: Visits indicate total known visits. ED/UCC VISIT TRACKING (12 MO.) 07/04/2019 21:03 [facility] [place] TYPE: Emergency COMPLAINT: - FEVER 04/02/2019 14:04 [facility] [place] TYPE: Emergency COMPLAINT: - FEVER, UTI, REF FROM CLINIC 01/29/2019 15:23 [facility] [place] TYPE: Emergency COMPLAINT: - FEVER 11/30/2018 19:15 [facility] [place] TYPE: Emergency COMPLAINT: - POSS BLOOD INFECTION,FEVER DIAGNOSES: - Fever, unspecified - Essential (primary) hypertension - termite treater helper (current) use of aspirin - Other skilled nursing (current) drug therapy - Allergy status to other antibiotic agents status 09/29/2018 20:39 [facility] [place] TYPE: Emergency COMPLAINT: - FEVER AND CHILLS INPATIENT VISIT TRACKING (12 MO.) 04/02/2019 17:22 [facility] [place] TYPE: Medical Surgical COMPLAINT: - GRAM NEG BACTEREMIA DIAGNOSES: - Other specified diseases of liver - Hyperlipidemia, unspecified - Allergy status to other antibiotic agents status - Allergy status to other antibiotic agents status - Benign prostatic hyperplasia without lower urinary tract symp - termite treater helper (current) use of anticoagulants - Hyperlipidemia, unspecified - termite treater helper (current) use of anticoagulants - Obstructive sleep apnea (adult) (pediatric) - Other ocean transportation intermediary (current) drug therapy - Benign prostatic hyperplasia without lower urinary tract symp - alf (current) use of aspirin - Obstructive sleep apnea (adult) (pediatric) - Unspecified dementia without behavioral disturbance - Essential (primary) hypertension - Do not resuscitate - alf (current) use of aspirin - Allergy status to other drugs, medicaments and biological sub - Essential (primary) hypertension - Other ocean transportation intermediary (current) drug therapy - Allergy status to other drugs, medicaments and biological sub - Dissection of abdominal aorta - Presence of prosthetic heart valve - Presence of prosthetic heart valve - Unspecified mood [affective] disorder - Bacteremia - Klebsiella pneumoniae [K. pneumoniae] as the cause of disease - Do not resuscitate - Klebsiella pneumoniae [K. pneumoniae] as the cause of disease - Dissection of abdominal aorta - Other specified diseases of liver - Unspecified dementia without behavioral disturbance - Unspecified mood [affective] disorder 01/29/2019 15:24 [facility] [place] TYPE: Observation COMPLAINT: - FEVER DIAGNOSES: - Parkinson's disease - Heart failure, unspecified - Other specified diseases of liver - Sleep apnea, unspecified - Hyperlipidemia, unspecified - Other skilled nursing (current) drug therapy - Hypertensive heart disease with heart failure - Fever, unspecified - Unspecified mood [affective] disorder - Allergy status to other drugs, medicaments and biological sub - Nicotine dependence, chewing tobacco, uncomplicated - Gout, unspecified - Right lower quadrant pain - alf (current) use of anticoagulants - Obesity, unspecified - Allergy status to other antibiotic agents status - Presence of prosthetic heart valve - Dementia in other diseases classified elsewhere without behav - termite treater helper (current) use of aspirin 10/02/2018 22:20 [facility] [place] TYPE: Renal DIAGNOSES: - Dissection of thoracoabdominal aorta - Presence of prosthetic heart valve - Essential (primary) hypertension - Bacteremia - Other chest pain 10/01/2018 11:37 [facility] [place] TYPE: Medical Surgical COMPLAINT: - FEVER DIAGNOSES: - Dementia in other diseases classified elsewhere without behav - Chronic diastolic (congestive) heart failure - Allergy status to other antibiotic agents status - Nicotine dependence, chewing tobacco, uncomplicated - Gout, unspecified - Unspecified mood [affective] disorder - Other specified bacterial agents as the cause of diseases cla - Body mass index (BMI) 36.0-36.9, adult - termite treater helper (current) use of aspirin - Obesity, unspecified - termite treater helper (current) use of anticoagulants - Hyperlipidemia, unspecified - Parkinson's disease - Fever, unspecified - Obstructive sleep apnea (adult) (pediatric) - Dementia with Lewy bodies - Bacteremia - Presence of prosthetic heart valve - Other skilled nursing (current) drug therapy - Dissection of abdominal aorta - Hypertensive heart disease with heart failure [email or web address]
== END 2019-07-04 22:15 | disposition home or self-care (01) ==
LOC: ED 21:02
DX: Z00.00 Encounter for general adult medical examination without abnormal findings (principal); I10 Essential (primary) hypertension; Z88.8 Allergy status to other drugs, medicaments and biological substances; Z88.1 Allergy status to other antibiotic agents; Z91.041 Radiographic dye allergy status; Z79.899 Other long term (current) drug therapy
CPT/HCPCS: 99283

== ENCOUNTER 2020-03-11 09:40 | Emergency (ER) | payer MEDICARE, OTHER ==
[~2020-03-11] VITALS: Ht 172.7 cm; Wt 110.2 kg
[~2020-03-11 09:40] MED LIST changes: +VITAMIN B-12250 MCG PO
--- OUTSIDE RECORDS SUMMARY | 2020-03-11 09:44 | XMS ---
PreManage Notification: ARTUR TOLLIVER Security Cooler Servicer Events No recent Security Events currently on file CRITERIA MET - [facility] - Has Care Guidelines - History of Sepsis Dx CARE PROVIDERS SARMAD GONZALEZ Internal Medicine 04/03/2019-Current PHONE: Unknown Quique has no Care Guidelines for this patient. Care History Medical/Surgical 04/03/2019 [facility] Patient was admitted.\T\nbsp; No follow up appointment scheduled with PCP yet. 04/03/2019 [facility] - Patient is currently established with [facility]. If patient is seen in the ED during business hours. Please contact CHWs at [facility]. Care Recommendation: If this patient has had [...] providing care. E.D. VISIT COUNT (12 MO.) 3 RAJNI Jorgensen TOTAL 3 NOTE: Visits indicate total known visits. ED/UCC VISIT TRACKING (12 MO.) 03/11/2020 09:41 [facility] [place] TYPE: Emergency COMPLAINT: - ABNORMAL LABS 07/04/2019 21:03 [facility] [place] TYPE: Emergency COMPLAINT: - FEVER DIAGNOSES: - Allergy status to other antibiotic agents - Radiographic dye allergy status - Other detention (current) drug therapy - Essential (primary) hypertension - Encounter for general adult medical examination without abnormal findings - Encounter for general adult medical examination without abnormal findings - Allergy status to other drugs, medicaments and biological substances 04/02/2019 14:04 [facility] [place] TYPE: Emergency COMPLAINT: - FEVER, UTI, REF FROM CLINIC INPATIENT VISIT TRACKING (12 MO.) 04/02/2019 17:22 [facility] [place] TYPE: Medical Surgical COMPLAINT: - GRAM NEG BACTEREMIA DIAGNOSES: - Other specified diseases of liver - Hyperlipidemia, unspecified - Allergy status to other antibiotic agents - Allergy status to other antibiotic agents - Benign prostatic hyperplasia without lower urinary tract symptoms - group home (current) use of anticoagulants - Hyperlipidemia, unspecified - termite control representative (current) use of anticoagulants - Obstructive sleep apnea (adult) (pediatric) - Other manager long term care (current) drug therapy - Benign prostatic hyperplasia without lower urinary tract symptoms - group home (current) use of aspirin - Obstructive sleep apnea (adult) (pediatric) - Unspecified dementia without behavioral disturbance - Essential (primary) hypertension - Do not resuscitate - termite control representative (current) use of aspirin - Allergy status to other drugs, medicaments and biological substances - Essential (primary) hypertension - Other manager long term care (current) drug therapy - Allergy status to other drugs, medicaments and biological substances - Dissection of abdominal aorta - Presence of prosthetic heart valve - Presence of prosthetic heart valve - Unspecified mood [affective] disorder - Bacteremia - Klebsiella pneumoniae [K. pneumoniae] as the cause of diseases classified elsewhere - Do not resuscitate - Klebsiella pneumoniae [K. pneumoniae] as the cause of diseases classified elsewhere - Dissection of abdominal aorta - Other specified diseases of liver - Unspecified dementia without behavioral disturbance - Unspecified mood [affective] disorder [email or web address]
[2020-03-11] MEDS ORDERED: VENTOLIN HFA18 GM INH (18:58)
--- NOTE | 2020-03-12 17:33 | EKG ---
[facility] [address] [place] [address] Signed Sinus bradycardia Nonspecific ST abnormality Abnormal ECG When compared with ECG of 02-APR-2019 14:34, No significant change was found Confirmed by RAQUEL JOHN MD ([id number]) on 03/12/2020 5:32:58 PM Electronically Signed By: RAQUEL JOHN MD 03/12/20 1733 PATIENT NAME: CELESTINELUISARTUR Electrocardiogram DATE OF : 38 PHYSICIAN: RAQUEL JOHN MD REPORT #: [id number] REPORT IS CONFIDENTIAL AND NOT TO BE RELEASED WITHOUT AUTHORIZATION
[2020-03-12] MEDS ORDERED: NORVASC5 MG PO (18:14)
[2020-03-12] MEDS ORDERED: COZAAR100 MG PO (18:15)
== END 2020-03-11 19:19 | disposition home or self-care (01) ==
LOC: ED 09:40
DX: J06.9 Acute upper respiratory infection, unspecified (principal); J98.01 Acute bronchospasm; Z20.822 Contact with and (suspected) exposure to COVID-19; F03.90 Unspecified dementia, unspecified severity, without behavioral disturbance, psychotic disturbance, mood disturbance, and anxiety; I10 Essential (primary) hypertension; Z88.8 Allergy status to other drugs, medicaments and biological substances; Z79.899 Other long term (current) drug therapy; Z79.82 Long term (current) use of aspirin; Z79.01 Long term (current) use of anticoagulants
CPT/HCPCS: 71046; 71260; 80053; 81001; 83605; 83880; 84484; 85025; 85610; 85651; 93005; 93010; 94640; 99285-25; C9803; Q9967; U0003

== ENCOUNTER 2020-03-12 12:25 | Inpatient (IN) | payer MEDICARE, OTHER ==
[~2020-03-12] VITALS: Ht 172.7 cm; Wt 110.8 kg
[~2020-03-12 12:25] MED LIST changes: +VENTOLIN HFA18 GM INH
[2020-03-12] MEDS ORDERED: NORVASC5 MG PO (18:14)
[2020-03-12] MEDS ORDERED: COZAAR100 MG PO (18:15)
[2020-03-14] MEDS ORDERED: AUGMENTIN 875-1 EACH PO (12:21)
[2020-03-14] MEDS ORDERED: NORVASC5 MG PO (12:22)
[2020-03-14] MEDS ORDERED: KLOR-CON 1010 MEQ PO (12:23)
[2020-03-14] MEDS ORDERED: TORSEMIDE10 MG PO (12:24)
== END 2020-03-14 14:00 | disposition home or self-care (01) | DRG 871 ==
LOC: MS 12:25
PROVIDERS: ADMIT Internal Medicine; ATTEND Internal Medicine
DX: R78.81 Bacteremia (principal); I50.23 Acute on chronic systolic (congestive) heart failure; I71.01 Dissection of thoracic aorta; K76.89 Other specified diseases of liver; B96.1 Klebsiella pneumoniae [K. pneumoniae] as the cause of diseases classified elsewhere; I10 Essential (primary) hypertension; K75.2 Nonspecific reactive hepatitis; G47.33 Obstructive sleep apnea (adult) (pediatric); E78.5 Hyperlipidemia, unspecified; K21.9 Gastro-esophageal reflux disease without esophagitis; E79.0 Hyperuricemia without signs of inflammatory arthritis and tophaceous disease; N40.0 Benign prostatic hyperplasia without lower urinary tract symptoms; G30.9 Alzheimer's disease, unspecified; F02.80 Dementia in other diseases classified elsewhere, unspecified severity, without behavioral disturbance, psychotic disturbance, mood disturbance, and anxiety; F39 Unspecified mood [affective] disorder; Z66 Do not resuscitate; Z88.1 Allergy status to other antibiotic agents; Z88.8 Allergy status to other drugs, medicaments and biological substances; Z79.01 Long term (current) use of anticoagulants; Z95.2 Presence of prosthetic heart valve; Z79.82 Long term (current) use of aspirin; Z79.899 Other long term (current) drug therapy
CPT/HCPCS: 36415; 80053; 85025; 85610; J0696; J1940

== ENCOUNTER 2021-09-10 17:40 | Inpatient (IN) | payer MEDICARE, OTHER ==
[~2021-09-10] VITALS: Ht 172.7 cm; Wt 104.9 kg
[~2021-09-10 17:40] MED LIST changes: +CARVEDILOL12.5 MG PO; +COZAAR100 MG PO; +ESCITALOPRAM OX10 MG PO; +KLOR-CON 1010 MEQ PO; +NITROGLYCERIN0.4 MG SL; +NORVASC5 MG PO; +PACERONE200 MG PO; -RIVASTIGMINE4.5 MG PO; +TOPIRAMATE25 MG PO; +TORSEMIDE10 MG PO
[2021-09-10] MEDS ORDERED: AMLODIPINE BESYL5 MG PO (18:04)
--- NOTE | 2021-09-10 21:23 | NUR ---
PT ARRIVED TO THE FLOOR IN NO ACUTE DISTRESS. PT HAD SOME MILD DYSPNEA ON EXERTION . VOIDED 500 CC. DENIES ANY CONCERNS AT THIS TIME. FINISHED ABX IV CALL LIGHT WITHIN REACH WILL CONTINUE TO MONITOR
--- NOTE | 2021-09-11 00:41 | NUR ---
PT SITTING UP IN BED, REPORTS MILD HEART BURN OFFERED CRACKERS AND SPRITE . WILL CONTINUE TO MONITOR. VSS CALL LIGHT WITHIN REACH .
--- NOTE | 2021-09-11 01:23 | NUR ---
ASSISTED PT TO USE THE URINAL , PT SITTING UP IN THE CHAIR IN ACUTE DISTRESS. CALL LIGHT WITHIN REACH WILL CONTINUE TO MONITOR.
--- NOTE | 2021-09-11 03:26 | NUR ---
PT UP TO BATHROOM , DENIES ANY CONCERN AT THIS TIME. CALL LIGHT WITHIN REACH WILL CONTINUE TO MONITOR.
--- NOTE | 2021-09-11 07:36 | NUR ---
MEDICATED WITH ORDERED MEDS PER MD. PT REPORTS PAIN MEDS ARE HELPING WITH PAIN . CALL LIGHT WITHIN REACH WILL CONTINUE TO MONITOR.
--- NOTE | 2021-09-11 07:37 | NUR ---
REPORT RECEIVED FROM KAREN POLLOCK. PT SITTING ON EDGE OF BED, AWAKE AND ALERT. PT TOLERATING ROOM AIR WITH OXYGEN SATURATION OF 91-92% ON ROOM AIR. PT DENIES PAIN AND NAUSEA. BREAKFAST ORDER PLACED. CALL LIGHT WITHIN REACH. PT DENIES ADDITIONAL REQUESTS OR COMPLAINTS.
--- NOTE | 2021-09-11 07:57 | NUR ---
MORNING ASSESSMENT AND MEDICATION DUE. PT ASSISTED WITH CALLING FAMILY, MESSAGE LEFT. PT FOUND WITH TWO 300ML BOTTLES OF WATER AND A SODA AT HIS BEDSIDE. EDUCATION DONE WITH PT REGARDING FLUID RESTRICTION. PT VERBALIZES UNDERSTANDING. WATER EMPTIIED. 300ML PROVIDED FOR MORNING FLUIDS. PT REPORTS "OH I DRINK A LOT OF WATER AT HOME." PT VERBALIZES UNDERSTANDING OF EDUCATION AND NEED FOR FLUID RESTRICITON. 100ML DARK YELLOW URINE REMOVD FROM URINAL. STAND BY ASSIST UP TO SCALE FOR DAILY WEIGHT. PT USING DOOR FRAME AND FURNATURE TO MOVE ABOUT ROOM. PT REPORTS HE FEELS "BETTER" TODAY AND CLARIFIES STATING HE FEELS "MORE ENERGETIC AND BREATHING BETTER." PT DENIES PAIN AND NAUSEA. PT ALERT AND OREINTED TO ALL ALTHOUGH HAS TO CORRECT HIMSELF ON THE EXACT DATE. PT VERBALIZES UNDERSTANDING OF PLAN OF CARE. PT FORGETFUL AT TIMES. LUNG SOUNDS CLEAR. PT REPORTS AN OCCATIONAL COUGH WITH SCANT AMOUTS OF CLEAR SPUTUM. PT TOLERATING ROOM AIR WITH OXYGEN SATURATIONS IN THE LOW 90'S. PT DENIES SHORTNESS OF BREATH. HEART TONES REGULAR. BOUNDING PULSE FELT/HEARD. +1 PITTING EDEMA NOTED IN BILATERAL LOWER EXTREMITIES UP TO KNEE LEVEL. I.S. AND CORENT PROVIDED. PT DEMONSTRATES USE OF CORNET X10 AND I.S. REACHING. 1000-1500ML X5. PT DENIES ADDTIIONAL REQUESTS OR COMPLAINTS. CALL LIGHT WITHIN REACH. BED RAILS UP.
--- NOTE | 2021-09-11 09:17 | NUR ---
THIS RN TO ROOM TO CHECK ON PT. PT RESTING WITH EYES CLOSED. RESPIRATIONS EVEN AND UNLABORED BUT PT NOTED TO BE 85% ON ROOM AIR WHILE SLEEPING. PT PLACED ON 2L O2 BY NC WHILE SLEEPIGN WITH OXGYEN SATURATIONS CLIMBING TO 93-95%. VITAL SIGNS OTHERWISE STABLE. MEDICATIONS GIVEN. PT REPORTS HIS HOME MEDICATION HAS NOT YET BEEN BROUGHT IN. PTS NILAY CALLED AND UPDATED ON PT STATUS AND PLAN OF CARE. NILAY STATES SHE WILL BRING IN PTS HOME MEDICATIONS AND CPAP MACHINE. PT DENIES ADDITIONAL REQUESTS OR COMPLAINTS. CALL LIGHT WITHIN REACH. BED RAILS UP.
--- NOTE | 2021-09-11 09:25 | NUR ---
MED/SURG CALLED FOR ROOM/TRANSFER. AWAITING CALL FOR REPORT.
--- NOTE | 2021-09-11 10:01 | NUR ---
REPORT CALLED TO KAREN HOFFMAN ON MED SURG.
--- NOTE | 2021-09-11 10:15 | NUR ---
REPORT RECEIVED FROM CCU RN AND AWAITING PT. ARRIVAL
--- NOTE | 2021-09-11 10:28 | NUR ---
PT. ARRIVED VIA BED. HE IS ALERT AND ORIENTED TO ALL BUT DATE. VITALS STABLE. DISCUSSED SAFETY, FLUID RESTRICTION AND POC. LEFT RESTING WITH CALL LIGHT IN REACH.
--- NOTE | 2021-09-11 11:33 | NUR ---
IV LASIX ADMIN. PT. IS DOING WELL WITH FLUID RESTRICTION. DENIES FURTHER NEEDS AND LEFT RESTING WITH CALL LIGHT INREACH.
--- NOTE | 2021-09-11 14:14 | NUR ---
LAB CALLED WITH POSITIVE BLOOD CULTURES AND MD NOTIFIED.
[2021-09-11] MEDS ORDERED: CIPROFLOXACIN500 MG PO (16:11)
--- NOTE | 2021-09-11 17:20 | NUR ---
PT AMBULATED TO THE NURSES STATION TO REQUEST DISTILLED WATER FOR CPAP. PT. WALKED BACK TO ROOM. EDUCATED SOLAR SALES ASSOCIATE LIGHT AND SAFETY. RT CALL FOR HOME CPAP SET UP AND WATER.
--- NOTE | 2021-09-11 18:21 | NUR ---
PT. RESTING IN BED. DENIES NEEDS AT THIS TIME.
--- NOTE | 2021-09-11 19:52 | NUR ---
SHIFT REPORT FROM DALTON Pradhan RN, PT HAS BEEN INDEPENDENT AMBULATING IN HALLS AND ROOM. HE IS ORIETNED.REORIENTS BUT IS FOGETFUL AT TIMES.
--- NOTE | 2021-09-11 20:38 | NUR ---
IN TO ASSIST PT WITH BLANKETS, PT GETING READY TO GO TO SLEEP, WILL GET VITALS
--- NOTE | 2021-09-11 20:45 | NUR ---
ROUNDING ON PT WITH HS MEDS AND COMPLETE ASSESSMENT HE IS READY TO GO TO BED AND HAVE HIS CPAP PLACED, NO NEW CONCERNS AT THIS TIME
--- NOTE | 2021-09-11 21:30 | NUR ---
PT RESTING IN BED EYES CLOSED RR REGULAR ON CPAP, NO DISTRESS NOTED. NO NEW CONCERNS. PT S/L, CALL LIGHT IN REACH.
--- NOTE | 2021-09-12 00:05 | NUR ---
PT RESTING IN BED WITH CPAP IN PLACE RR REGULAR NO DISTRESS NOTED. NO NEW CONCERNS AT THIS TIME, CALL LIT IN REACH.
--- NOTE | 2021-09-12 02:25 | NUR ---
PT RESTING BED SUPINE, CPAP IN PLACE, RR REGULAR 18 BPM, NO DISTRESS NOTED.
--- NOTE | 2021-09-12 03:54 | NUR ---
ROUNDING ON PT, PT RESTING SUPINE IN BED, EYES CLOSED RR REGULAR 18 BPM, NOTED CPAP FACE MASK SEAL IS LEAKING MAKING VIBRATION SOUND, ADJUSTED FACE MASK SLIGHTLY, FACE MASK NO LONGER LEAKING, SEAL IS NOW WNL. PT DID NOT WAKE FULLY.
--- NOTE | 2021-09-12 04:37 | NUR ---
PT HAS SLEPT WELL OVER SHIFT, HE PLACED CPAP DIRECTLY AFTER HS PT CARE. AND HAS BEEM SLEEPING SINCE. NO NEW CONCERNS THIS SHIFT. UNEVENTFUL SHIFT AT THIS POINT.
--- NOTE | 2021-09-12 06:15 | NUR ---
PT CALLED NURSES STATION TO REPORT HE WANTS TO GET OUT OF BED. PT STANDBY ASSIST TO BATHROOM TO VOID IN URINAL, PT THEN UP TO RECLINER, ASSESSMENT AND V/S, I/O AND STANDING WEIGHT COMPLETED, PT REQUESTED COFFEE THIS AM, AND ASSISTANCE TO CALL HIS , THIS IS ALL PROVIDED. HE IS WELL WITHIN WITH FLUID RESTRICTION FRO THIS SHIFT.
--- NOTE | 2021-09-12 08:05 | NUR ---
patient sitting in the chair eating breakfast. warm washcloth offered and refused. coffee refreshed. call light with in reach. no further needs at this time.
--- NOTE | 2021-09-12 08:14 | NUR ---
pt alert and interactive at time of shift exchange. denies discomforts or needs of. pt requesting dc today.
--- NOTE | 2021-09-12 11:22 | NUR ---
PT CONTINUES UP IN THE CHAIR THIS SHIFT. DENIES NEEDS OR DISCOMFORT. PT WANS TO GO HOME STATES HE FEELS WELL.
--- NOTE | 2021-09-12 16:14 | NUR ---
EDUCATION PROVIDED FOR PT AND HIS R/T CHF STOP LIGHT PROTOCOL EXPLAINED AND WRITTEN MATERIALS PROVIDED ALONG WITH LOW NA DIET. UNDERSTANDING VERBALIZED. PT REMAINS UP IN THE CHAIR THIS SHIFT DENIES SOB OR INCREASED DISCOMFORTS. CONTINUES ON FLUID RESTRICTIONS
--- NOTE | 2021-09-12 18:41 | NUR ---
PT CONTINUES UP IN THE CHAIR. HAS DONE WELL STAYING IN PARAMETERS FOR FLUID RESTRICTION COFFEE PROVIDED PER REQUEST. CALL LIGHT AND NEEDED ITEMS IN REACH.
--- NOTE | 2021-09-12 19:31 | NUR ---
BEDSIDE REPORT FROM HANS Null RN, PT RESTING IN BED ALERT, DISORIENTED TO TIME OF DAY. HANS REPORTED THAT PT HAS HAD A DIFFICULT DAY WITH FEVER, PAIN AND TACHYCARDIA. PT NOW DOING BETTER NEEDS CLOSE MONITOR.
--- NOTE | 2021-09-12 19:38 | NUR ---
BEDSIDE REPORT FROM BALJINDER Lang RN, PT AMBULATING IN HALLS INDEPENDENTLY AT THIS TIME, HE IS ALERT AND ORIENTED HE VERBALIZED REMEBERING THIS RN FROM LAST CERTIFIED PROSTHETIST/ORTHOTIST. NO REQUSTS OR CONCERNS AT THIS ITME.
--- NOTE | 2021-09-12 22:13 | NUR ---
PT RESTING IN BED EYES CLOSED CPAP ON, NO DISTRESS NOTED RR REGULAR 18 BPM
--- NOTE | 2021-09-13 01:14 | NUR ---
PT RESTING QUIETLY IN BED ON CPAP, RESP. REGULAR AT 18 BPM. NO DISTRESS NOTED.
--- NOTE | 2021-09-13 05:36 | NUR ---
PT HAS SLEPT WELL OVER SHIFT, NO NEW CONCERNS, UNEVENTFUL SHIFT
--- NOTE | 2021-09-13 07:44 | NUR ---
Report received from Ines JONES. Pt resting in chair, discussed fluid restriction and pt is compliant. No needs at this time. Call light in reach. Will continue plan of care.
[2021-09-13] MEDS ORDERED: AMLODIPINE BESYL5 MG PO (08:13)
[2021-09-13] MEDS ORDERED: ESCITALOPRAM OX20 MG PO (08:18)
[2021-09-13] MEDS ORDERED: KLOR-CON 1010 MEQ PO (08:21)
--- NOTE | 2021-09-13 08:40 | NUR ---
Scheduled medications administered and assessment complete. Pt verbalizes further understanding regarding CHF, and voices to this RN regarding sodium/water balance and signs of fluid overload. VSS. HRR. On room air, lung sounds clear and equal with no crackles noted. 1+ edema noted in BLE, pt states improved. Tolerating fluid restriction at this time. Call light in reach.
--- NOTE | 2021-09-13 09:37 | NUR ---
PT UP TO BATHROOM W/STBY ASSIST (INDEPENDENT OTHER THAN IV). PT HAD A BM AN VOIDED. BOTH RECORDED. PT DOES NOT COMPLAIN OF ANY PAIN, ONLY SLIGHTLY LIGHTHEADED WHEN STANDING. PT PERFORMED ORAL CARE AND HAND HYGEINE. WATER REFILLED AND BREAKFAST TRAY TAKEN AWAY. PT COMFORTABLE IN CHAIR WITH CALL LIGHT IN REACH.
--- NOTE | 2021-09-13 11:21 | NUR ---
Rounded on patient who is sitting up in chair. Denies needs at this time. On RA. No needs identified at this time. Call light in reach.
[2021-09-13] MEDS ORDERED: RIVASTIGMINE4.5 MG PO (11:30)
--- NOTE | 2021-09-13 12:02 | NUR ---
PT SOUNDLY SLEEPING-DID NOT DISTURB. WILL FOLLOW
--- NOTE | 2021-09-13 13:56 | NUR ---
Spoke with pt. He states he cont. to live in a 1 story house with his . NO issues getting into the home. Pt states he had gallbladder surgery in the last year to end his episodes of bacteremia. He states it didn't work. Pt denies needs. Plans on going home with and son lives near and will assist. Plan on dc to home when cleared medic- ally. drives.
--- NOTE | 2021-09-13 14:05 | NUR ---
PT ALERT, ORIENTED AND VISITING WITH HIS NILAY AT . PT STATED HE FEELS MUCH BETTER- AGREES. HAD GOOD VISIT, PLEASED WITH CARE. PT REQUESTED PRAYER, GAVE A BLESSING AND WILL FOLLOW NEEDED
[2021-09-13] MEDS ORDERED: CARVEDILOL12.5 MG PO (14:54)
[2021-09-13] MEDS ORDERED: MUPIROCIN22 GM NAS (14:55)
[2021-09-13] MEDS ORDERED: TORSEMIDE10 MG PO (14:56)
[2021-09-13] MEDS ORDERED: AMOX TR-K CLV1 EAC1 PO (14:57)
[2021-09-13] MEDS ORDERED: WARFARIN SODIUM5 MG PO (15:10)
--- NOTE | 2021-09-13 15:31 | NUR ---
Discharge education and paperwork provided to patient and his who verbalize understanding and all questions answered. VSS, IV removed WNL, site WNL. Pt dressed and all personal belongings returned including medications from pharmacy bin. Pt has no further needs and is stable. WC ride out, Ruby to provide ride home.
== END 2021-09-13 15:35 | disposition home or self-care (01) | DRG 291 ==
LOC: ED 17:40 → MS 20:28 → CCU 20:28 → MS 09-11 10:20
PROVIDERS: ADMIT Internal Medicine; ATTEND Internal Medicine
DX: I11.0 Hypertensive heart disease with heart failure (principal); I50.33 Acute on chronic diastolic (congestive) heart failure; J96.01 Acute respiratory failure with hypoxia; Z66 Do not resuscitate; Z20.822 Contact with and (suspected) exposure to COVID-19; E79.0 Hyperuricemia without signs of inflammatory arthritis and tophaceous disease; G30.9 Alzheimer's disease, unspecified; F02.80 Dementia in other diseases classified elsewhere, unspecified severity, without behavioral disturbance, psychotic disturbance, mood disturbance, and anxiety; G47.33 Obstructive sleep apnea (adult) (pediatric); B96.20 Unspecified Escherichia coli [E. coli] as the cause of diseases classified elsewhere; N40.0 Benign prostatic hyperplasia without lower urinary tract symptoms; F32.A Depression, unspecified; Z95.4 Presence of other heart-valve replacement; Z90.49 Acquired absence of other specified parts of digestive tract; Z88.8 Allergy status to other drugs, medicaments and biological substances; Z79.01 Long term (current) use of anticoagulants; Z79.899 Other long term (current) drug therapy
CPT/HCPCS: 36415; 71045; 80048; 83605; 83880; 85025; 85610; 87040; 87502; 94640; 94667; 94668; 94760; 96374; 96375; 99285-25; A9270; C9803; J0696; J1940; U0003

== ENCOUNTER 2021-12-06 16:34 | Observation (INO) | payer MEDICARE, OTHER ==
[~2021-12-06] VITALS: Ht 172.7 cm; Wt 107.5 kg
[~2021-12-06 16:34] MED LIST changes: +CIPROFLOXACIN500 MG PO; +MUPIROCIN22 GM NAS; +RIVASTIGMINE4.5 MG PO
--- NOTE | 2021-12-06 18:50 | NUR ---
12/06/21 185 Unique Dwyer 1823-PATIENT ARRIVES TO PACU ON 6L VIA MASK. OPA IN PLACE. PATIENT IS NONAROUSABLE TO TACTILE STIMULI. RESP EVEN AND UNLABORD.
--- NOTE | 2021-12-06 19:33 | NUR ---
PT TO ROOM 110 ON SURGERY PRIYANKA - PT MOVED SELF TO BED, PAIN 1/10, RIGHT THIGH WOUND CDI - WITH ACTICOTE DRSG. PT ALERT AND ORIENTED TO PLACE, PRESIDENT AND SITUATION, TODAY IS MONDAY BUT HE SAID MONDAY... HIS JAVA APPLICATION DEVELOPER ARE STONG AND EQUAL - PEDAL PULSES ARE STRONG. PT DRINKING WATER AND COFFEE WNL. EYES REACTIVE TO LIGHT BUT LEFT PUPIL SMALLER THAN RIGHT. FOLLOWS APPROPRIATELY WITH EYS, NO DOUBLE VISION. PT REPORTS BM TODAY, HE REPORTS HE IS HUNGRY AND BS ARE POSITIVE. 4 L NC 95% AND BEDSIDE PULSE OX ON. IN ROOM. BOTH ORIENTED TO CALL LIGHT AND BED ALARM ON. PT REPORTS HOME CPAP - WILL BRING IN TOMORROW IF STAYING.
--- NOTE | 2021-12-06 20:33 | NUR ---
PLACED CALL TO MD TO VERIFY GIVING FFP. MD GAVE VERBAL ORDER TO CANCEL FFP, VERIFIED ORDER USING READBACK METHOD. UPDATED MD ON PATIENT STATUS.
--- NOTE | 2021-12-06 20:37 | NUR ---
VITALS TAKEN AND BACTROBAN APPLIED TO NOSTRILS PER PRIMARY NURSE. PT. LEFT RESTING EATING SNACK AND DENIES PAIN OR NEEDS AT THIS TIME.
--- NOTE | 2021-12-06 22:05 | NUR ---
PT SITTING UP AT BEDSIDE, 2/10 PAIN NOTED AFTER PO MEDS. PEA SIZE AMT OF DRAINAGE TO DRESSING NOTED ON R THIGHT. PT WATCHING TV AXo X4. NEURO WNL. 96% 4L NC DECREASED TO 2 LNC. HR 53. CALL LIGHT IN REACH.
--- NOTE | 2021-12-07 00:20 | NUR ---
PT R THIGH DRESSING UNCHANGED - NO CHANGE TO THE PEA SIZED AMT OF DRAINAGE TO BANDAGE. PT RESTING ON R SIDE, DENIES NEEDS - CALL LIGHT IN REACH.
--- NOTE | 2021-12-07 03:05 | NUR ---
pt resting on r side, pulse ox wnl, hr 50, 0x 94%
--- NOTE | 2021-12-07 04:11 | NUR ---
pt up to bedside void 900 ml of clear urine - back to bed, r leg drsg unchanged with pea size old drainage. denies needs back to bed - cup of coffee to pt. call light in reach.
--- NOTE | 2021-12-07 05:28 | NUR ---
LAB IN FOR DRAW, PO MEDS, I/O & VITALS TAKEN, DRSG UNCHANGED.
--- NOTE | 2021-12-07 07:15 | NUR ---
REPORT RECEIVED FROM KAREN MANCINI. PT RESTING IN BED WITH EYES CLOSED. RESPIRATIONS EVEN AND UNLABORED, OXGYEN SATRUATIONS 94% ON 2L O2 BY NC RELATED TO PT NOT HAVING HIS HOME CPAP. BED RAILS UP. CALL LIGHT WITHIN REACH. PT ALLOWED TO REST.
--- NOTE | 2021-12-07 07:37 | NUR ---
MORNING ASSESSMENT AND MEDICATION DUE. PT RESTING IN BED, AWAKEN AND ALERT, WATCHING TV. PT DENIES NASUEA. PT DENIES PAIN STATING "JUST A LITTLE SORENESS IF I PRESS ON IT." REFERING TO WOUND ON HIS RIGHT THIGH. DRESSING TO RIGHT THIGH SHOWS PINPOINT SHADOWING BUT IS OTHERWISE CLEAN DRY AND INTACT. THIGH SOFT TO TOUCH, MINIMAL SWELLING NOTED. CMS INTACT WITH STRONG TIBIAL AND PEDIAL PULSES NOTED. STRONG PLANTAR AND DORSI FLEXION NOTED. SENSATION INTACT. TRACE EDEMA NOTED TO BLE, PT REPORTS "IT'S ALWAYS LIKE THAT FROM MY HEART." PUPILS WNL, BILATEARLLY EQUAL AND REACTIVE TO LIGHT. NO NYSTAGMUS NOTED. HEART TONES REGULAR, BRADYCARDIA NOTED. CARVADIOL HELD. DR EMMANUEL CALLED AND UPDATED AND CONFIRMS TO HOLD CARVADIOL. PT DECLINES TIME UP TO TO CHAIR AT THIS TIME. COFFEE PROVIDED. NO ADDITIONAL REQUESTS OR COMPLAINTS. CALL LIGHT WIHTIN REACH. BED RAILS UP.
--- NOTE | 2021-12-07 08:20 | NUR ---
Spoke with Daniel. He cont. to live with his in a 1 story home, with 1 step. He has a walker, but does not currently use. He and are avid gardners. He was cutting a box to put tomatoes in to ripen when he accidently cut his leg. He denies any needs and plans dc as soon as Dr. Hamm will let him leave. HIs son will drive him. They have no financial issues. He does have some memory issues as he states he drives, I believe the last stay, son had stated pt can no longer drive.
[2021-12-07] MEDS ORDERED: ESCITALOPRAM OX10 MG PO (08:51)
--- NOTE | 2021-12-07 09:03 | NUR ---
THIS RN TO ROOM TO CHECK ON PT. PT VISITING WITH PHARMACIST ABOUT MEDICATIONS. PT REPORTS HE HAS DECREASED HIS CARVADIOL DOSE RECENTLY. PHARMASIT ADJUSTING MEDICATIONS. MUPIROCIN OINTMENT GIVEN (SEE MAR). PT ENCORUAGED TO GET UP TO CHAIR. PT CONTINUES TO DECLINE. NO ADDITIONAL REQUESTS OR COMPLAINTS. CALL LIGHT WITHIN REACH. BED RAILS UP.
--- NOTE | 2021-12-07 09:18 | NUR ---
PT CALL LIGHT ON. PT REQUESTS TO USE RESTROOM AND AGREES TO GET UP TO CHAIR. STAND BY ASSIST UP TO RESTROOM. PT VOIDS WITHOUT ISSUE. PT PERFORMS SELF KENDRA CARE. STAND BY ASSIST UP TO CHAIR. PERSONAL BELONGINGS WITHIN REACH. RAFAEL GONZALES, AT BEDSIDE WORKING WITH PT. NO ADDITIONAL NEEDS AT THIS TIME. CALL LIGHT WITHIN REACH.
[2021-12-07] MEDS ORDERED: VITAMIN C1500 MG PO (09:20)
[2021-12-07] MEDS ORDERED: VITAMIN E180 M2 PO (09:20)
[2021-12-07] MEDS ORDERED: AMLODIPINE BESYL5 MG PO (10:17)
--- NOTE | 2021-12-07 10:17 | NUR ---
THIS RN TO ROOM TO CHECK ON PT. PT UP TO CHAIR VISITING WITH AND CURATOR OF MANUSCRIPTS. PT CHEEFUL AND LAUGHING WITH CONVERSATION. PT DENIES PAIN AND NASUEA. PT DENIES NEED TO USE RESTROOM. PT REQUESTS A PIECE OF CHOCOLATE, PROIVDED FOR PT AND . NO ADDITIONAL NEEDS AT THIS TIME. CALL LIGHT WITHIN REACH.
--- NOTE | 2021-12-07 10:18 | NUR ---
MED REC COMPLETE
--- NOTE | 2021-12-07 11:39 | NUR ---
HOURLY ROUNDING: PT UP TO CHAIR VISITING WITH . PT REQUESTS TO CHANGE LUNCH ORDER. PT ASSISTED WITH PLACING NEW LUNCH ORDER. PT DENIES PAIN AND NAUSEA "UNLESS I PRESS ON THAT SPOT THERE." INDICATING RIGHT THIGH WOUND. THIGH REMAINS SOFT TO TOUCH. CMS INREMAINS INTACT. PT REQUESTS A SNACK, CRACKERS PROVIDED. PT DENIES NEED TO USE RESTROOM. NO ADDITIONAL REQUESTS OR COMPLAINTS. CALL LIGHT WITHIN REACH. BED RAILS UP.
--- NOTE | 2021-12-07 12:32 | NUR ---
PT ALERT,ORIENTED AND VISITING WITH HIS NILAY. PT IS SITTING UP IN CHAIR AND EXPLAINED HOW HE CUT HIMSELF-DOING WHAT HE TOLD HIS BOYS NOT TO DO. HOPES TO DC TODAY. PT REQUESTED PRAYER, WILL FOLLOW
--- NOTE | 2021-12-07 12:44 | NUR ---
CHRIS WHITNEY. PT REMAINS UP TO CHAIR. FINISHED WITH LUNCH. PT REPROTS / SORENESS IN RIGHT THIGH. DR EMMANUEL TO BEDSIDE TO REVIEW PLAN OF CARE WITH PT. PT VERBALIZES UNDERSTANDING AND STATES HIS QUESTIONS HAVE BEEN ANSWERED. PT ANTICIPATING DISCHAGE SOON. NO ADDITIONAL NEED AT THIS TIME. CALL LIGHT WIHTIN REACH. BED RAILS UP.
[2021-12-07] MEDS ORDERED: ACETAMINOPHEN500 MG PO (12:56)
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
== END 2021-12-07 13:25 | disposition home or self-care (01) ==
LOC: ED 16:34 → CCU 16:36 → DSVR 17:39 → DS 17:39 → ED 17:39 → DSVR 18:36 → MS 18:36 → CCU 18:56 → MS 18:56 → CCU 19:02 → DS 12-07 13:25 → MS 12-07 13:25
PROVIDERS: ADMIT Surgery; ATTEND Surgery
PROC: 0Y3C0ZZ Control Bleeding in Right Upper Leg, Open Approach (ICD-10-PCS; 2021-12-06)
PROC: 0Y9C0ZZ Drainage of Right Upper Leg, Open Approach (ICD-10-PCS; principal; 2021-12-06 17:24)
DX: S75.011A Minor laceration of femoral artery, right leg, initial encounter (principal); S71.111A Laceration without foreign body, right thigh, initial encounter; Z79.01 Long term (current) use of anticoagulants; I48.91 Unspecified atrial fibrillation; W26.0XXA Contact with knife, initial encounter; Z23 Encounter for immunization; Z88.1 Allergy status to other antibiotic agents; Z88.8 Allergy status to other drugs, medicaments and biological substances; I10 Essential (primary) hypertension
CPT/HCPCS: 00300; 36415; 36600; 80048; 82803; 85025; 85610; 85730; 86850; 86900; 86901; 86922; 90471; 90715; 96374; 96376; 99285-25; A9270; G0378; J0131; J0330; J0690; J1100; J2001; J2405; J2704; J3010; J7121; P9059

== ENCOUNTER 2021-12-31 00:47 | Emergency (ER) | payer MEDICARE, OTHER ==
[~2021-12-31] VITALS: Ht 172.7 cm; Wt 106.1 kg
[~2021-12-31 00:47] MED LIST changes: +ACETAMINOPHEN500 MG PO; +VITAMIN C1500 MG PO; +VITAMIN E180 M2 PO
[2022-01-04] MEDS ORDERED: COREG12.5 MG PO (09:37)
== END 2021-12-31 02:15 | disposition home or self-care (01) ==
LOC: ED 00:47
DX: I10 Essential (primary) hypertension (principal); Z88.8 Allergy status to other drugs, medicaments and biological substances; Z79.899 Other long term (current) drug therapy; Z79.01 Long term (current) use of anticoagulants
CPT/HCPCS: 36415; 80053; 85025; 99283

== ENCOUNTER 2022-01-08 11:06 | Inpatient (IN) | payer MEDICARE, OTHER ==
[~2022-01-08] VITALS: Ht 172.7 cm; Wt 102.1 kg
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
--- NOTE | 2022-01-08 16:40 | NUR ---
RECIEVED HAND OFF REPORT FROM ALBERTINA JONES.
--- NOTE | 2022-01-08 17:47 | NUR ---
PT SITTING IN RECLINER. ASSESSMENT FINISHED. PT LUNG SOUNDS BILAT CLEAR IN ALL LOBES, EVEN AND UNLABORED. CURRENTLY ON 2L NC. A&O X4. HEART SOUNDS REGULAR. NEW RASH NEAR ANKLES BILAT, PT REPORTS HAS NUMBNESS/TINGLING OVER THE RASH. STATES IT APPEARED ONCE WALKING BACK TO ROOM FROM BATHROOM IN THE ER TODAY. DENIES PAIN AT THIS TIME. PT EDUCATED ON USE OF CALL LIGHT.
--- NOTE | 2022-01-08 18:08 | EKG ---
[facility] [address] [facility] [place] [address] Signed Normal sinus rhythm Prolonged QT Abnormal ECG When compared with ECG of 11-MAR-2020 10:56, QT has lengthened Confirmed by Efra Pulido MD () on 01/08/2022 6:08:40 PM Electronically Signed By: EFRA PULIDO MD 01/08/22 1808 PATIENT NAME: ARTUR TOLLIVER Electrocardiogram DATE OF : 38 PHYSICIAN: EFRA PULIDO MD REPORT #: [id number] REPORT IS CONFIDENTIAL AND NOT TO BE RELEASED WITHOUT AUTHORIZATION
--- NOTE | 2022-01-08 18:33 | NUR ---
PT IN RECLINER RESTING, EYES CLOSED. CHAIR ALARM ON, CALL LIGHT WITHIN REACH.
--- NOTE | 2022-01-08 18:57 | NUR ---
SECOND RN SKIN ASSESSEMENT COMPLETE AT THIS TIME. BY MARTA JONES.
--- NOTE | 2022-01-08 19:28 | NUR ---
1900- O2 decreased to 1L NC, pt in recliner chair, legs elevated, alrms in place
--- NOTE | 2022-01-08 19:45 | NUR ---
Pt in chair, up to br, voided, back to chair, took Coumadin and sips of water, Coop with assessment, On 1LNC, pleasant, cooperative, clear speech, alert to self and situation. chair alarm in place, legs elevated. Abd soft firm large, denies problems. scabbed over healing area R above knee area. call light at hands reach
--- NOTE | 2022-01-08 23:56 | NUR ---
IN RECLINER CHAIR, HOB ELEVATED, LEGS UP, O2 1LNC, EYES CLOSED, NO DISTRESS, CALL LIGHT AT HANDS REACH
--- NOTE | 2022-01-09 00:48 | NUR ---
As per lab, both sets and anaerobic and aerobic cultures Gram negative rods
--- NOTE | 2022-01-09 00:58 | NUR ---
TALKED TO DR PULIDO AT 0052, INFORMED OF POSITIVE BC. NO NEW ORDERS, WILL REASSESS IN AM, HE GOT ABX IN ED AND APPEARED TO HAD A REACTION, WILL REASSESS IN AM
--- NOTE | 2022-01-09 01:06 | NUR ---
ON 1LNC, LAYING ON RIGHT SIDE, NO DISTRESS. SATS 97%. PT AWAKES EASILY, COOP WITH ASSESSMENT AND VITALS. ON ROOM AIR 95-97%, COOPERATIVE WITH ASSESSMENT, DENIES C/O PAIN OR SOB. WAS UP TO BR A FEW MINUTES AGO AND VOIDED, TOLERATED WELL 1PA
--- NOTE | 2022-01-09 04:00 | NUR ---
Pt in bed laying in his R side, no idstress, on room air. call light and fluids at bedside. Bed alarm on
--- NOTE | 2022-01-09 04:56 | NUR ---
Pt was on O2 2L at begining of shift, weaned down to room air. Up in chair for a couple hours at begining of shift. In bed, used call light several times Up to br, voided, still need a UA that was not obtained in the ER. will try to collect this am. Pt has denid pain, no cough. On room air, lungs dim at bases. SL patent, abd large firms, non tender, no bm this shift. Forgetful, pleasant and cooperative. Tolerating liquids well. Pt blood cultures were called to Dr Mccain "Gram negative rods". no new orders at this time.
--- NOTE | 2022-01-09 05:44 | NUR ---
Pt laying in bed, awakes easily, coop with vitals and assessment. Up to br, voided dark yellow urine QS, sample sent to lab. daily standing weight was 101.7KG. Back to chair, on room air, no c/o sob or CP noted. pleasant and cooperative,forgetful but redirectable. call light, phone and fluids at hands reach. warm cofee given on request
--- NOTE | 2022-01-09 07:10 | NUR ---
RECIEVED SHIFT REPORT. PT IN RECLINER, EYES CLOSED. BREATHING EVEN AND UNLABORED. CHAIR ALARM ON. CALL LIGHT WITHIN REACH.
--- NOTE | 2022-01-09 07:57 | NUR ---
PATIENT UP IN CHAIR READY FOR MEAL. AM CARE COMPLETED. PT HAS NO OTHER REQUESTS AT THIS TIME. CALL LIGHT WITHIN REACH.
[2022-01-09] MEDS ORDERED: TYLENOL EXTRA500 MG PO (10:12)
--- NOTE | 2022-01-09 10:16 | NUR ---
MED REC COMPLETE
--- NOTE | 2022-01-09 10:33 | NUR ---
PT IN RECLINER, AWAKE. CALL LIGHT WITHIN REACH. CHAIR ALARM ON.
--- NOTE | 2022-01-09 11:29 | NUR ---
CALL LIGHT ANSWERED. PT REQUESTED WATER. DENIES ANY FURTHER NEEDS. CALL LIGHT WITHIN REACH. CHAIR ALARM ON.
--- NOTE | 2022-01-09 12:22 | NUR ---
PT IN RECLINER, EATING LUNCH. AT BEDSIDE. CALL LIGHT WITHIN REACH. CHAIR ALARM ON.
--- NOTE | 2022-01-09 13:21 | NUR ---
PT IN RECLINER, AWAKE. CALL LIGHT WITHIN REACH, CHAIR ALARM ON.
--- NOTE | 2022-01-09 14:25 | NUR ---
PT SITTING IN RECLINER, AWAKE. DENIES PAIN AT THIS TIME. PT STATES HE IS FEELING MUCH BETTER. DENIES FURTHER NEEDS. AT BEDSIDE. CALL LIGHT WITHIN REACH.
--- NOTE | 2022-01-09 16:30 | NUR ---
PT COMPLAINED CHAIR ALARM WAS MAKING HIM HOT. THIS RN EXPLAINED THE IMPORTANCE OF THE CHAIR ALARM AND FOR HIS SAFTEY. BLANKET IN CHAIR REPLACED WITH A SHEET AND CHAIR ALARM IN PLACE. PT WAS UNDERSTANDING. DENIES FURTHER NEEDS. CALL LIGHT WITHIN REACH.
--- NOTE | 2022-01-09 17:59 | NUR ---
PATIENT IN CHAIR AFTER MEAL BY REQUEST. CHAIR ALARM SET, PT HAS NO OTHER NEEDS AT THIS TIME. CALL LIGHT WITHIN REACH.
--- NOTE | 2022-01-09 19:53 | NUR ---
Pt on room air, pleasant and cooperative. alert to self, place and situation. Up in chair, legs elevated, no c/o pain or sob. abd large firm, darryl having had a bm today. Coreg 12.5 mg given , SBP RA 188, denies CP. . tolerating fluids well. call light at hands reach. SL LFA patent
--- NOTE | 2022-01-09 20:07 | NUR ---
Dr Escobedo notified of elevated SBP 188/57 was rechecked on both airms and similar reading. "I may order a PRN, I will put the orders in" stated. Pt asymptomatic, up in chair
--- NOTE | 2022-01-09 22:30 | NUR ---
PER PRIMARY RN DAYO RECHECK THE BLOOD PRESSURE. DONE AND RECORDED. PATIENT GOT UP TO USE THE BATHROOM. PATIENT IS BACK IN THE CHAIR. CHAIR ALARM ON FOR SAFETY.
--- NOTE | 2022-01-09 22:48 | NUR ---
PT UP TO BR, VOIDED, SBA, BACK TO CHAIR, STATED "I WILL CALL WHEN MY SHOW IS OVER AND JOSE RAMON READY FOR BED". CALL LIGHT AT HANDS REACH, IN HCAIR, ROOM AIR, LEGS ELEVATED
--- NOTE | 2022-01-09 23:00 | NUR ---
CALL LIGHT ANSWERED. SBA. PATIENT IS IN BED NOW. BED ALARM ON FOR SAFETY. NO OTHER CARE NEEDS AT THIS TIME. DOOR SHUT PER PATIENT.
--- NOTE | 2022-01-10 01:16 | NUR ---
On room air, laying in bed L side, awakes easily, no distress, denies c/o CP, SOB. call light at hands reach
--- NOTE | 2022-01-10 01:39 | NUR ---
ANSWERED CALL LIGHT. PATIENT C/O COLD FEET AND WANTED SOCKS PUT BACK ON, DONE. WARM BLANKET PROVIDED. NO OTHER NEEDS AT THIS TIME.
--- NOTE | 2022-01-10 07:30 | NUR ---
THIS RN RECEIVED SHIFT REPORT FROM KAREN OSHEA. PATIENT RESTING SITTING UP IN THE BEDSIDE ARMCHAIR WATCHING TV WITH CALL LIGHT IN REACH. PATIENT HAS NO NURSE CARE NEEDS AT THIS TIME. PATIENT'S JUST CALLED AND THIS RN UNDATED ON PATIENT'S STATUS AND SHE WILL BE IN TO SEE HIM ABOUT 9AM.
--- NOTE | 2022-01-10 09:04 | NUR ---
PT IN CHAIR. PRESENT IN ROOM. VITALS AND IS AND OS COMPLETE. NO FURTHER NEEDS. CALL LIGHT WITHIN REACH.
--- NOTE | 2022-01-10 09:10 | NUR ---
THIS RN IN SEEING PATIENT AND GIVING AM MEDS. PATIENT DENIES ANY PAIN OR SOB AT THIS TIME. AM ASSESSMENT COMPLETE. IV FLUSHES WELL AND ANTIBIOTIC RUNNING. PATIENT DENIES ANY OTHER CARE NEEDS AT THIS TIME. JUST CAME IN TO TALK TO PATIENT AND . PATIENT HAS NO OTHER CARE NEEDS AT THIS TIME. CALL LIGHT IS IN REACH.
--- NOTE | 2022-01-10 10:00 | NUR ---
PATIENT REMAINS UP IN THE BEDSIDE ARMCHAIR VISTING WITH HIS . PATIENT HAS NO NURSE CARE NEEDS AT THIS TIME. CALL LIGHT IS IN REACH.
--- NOTE | 2022-01-10 10:55 | NUR ---
PATIENT'S IV ANTIBIOTIC DONE AND PATIENT SL NOW. PATIENT AND AWAITING DC ORDER TO GO HOME. CALL LIGHT IN REACH.
[2022-01-10] MEDS ORDERED: LEVOFLOXACIN750 MG PO (11:22)
[2022-01-10] MEDS ORDERED: BENZONATATE200 MG PO (11:22)
--- NOTE | 2022-01-10 12:05 | NUR ---
DC VITALS DONE AND STABEL. IV DC'D INTACT. PATIENT'S LUNCH ARRIVED AND HE IS GOING TO EAT BEFORE HE LEAVES. CALL LIGHT IS IN REACH.
--- NOTE | 2022-01-10 12:27 | NUR ---
PATIENT'S IV DC'D INTACT. VS STABLE. PATIENT FINISHED ALL HIS LUNCH. PATIENT DRESSED IN HIS OWN CLOSED AND TAKEN TO THE FRONT LOBBY TO GO HOME BY PRIVATE CAR, AFTER PATIENT AND HAVE BOTH VERBALIZED UNDERSTANDING TO ALL DC, MEDICATION, F/U, AND HOME CARE INSTRUCTIONS. ALL PATIENT'S BELONGINGS SENT WITH PATIENT.
== END 2022-01-10 12:27 | disposition home or self-care (01) | DRG 871 ==
LOC: ED 11:06 → MS 16:28
PROVIDERS: ADMIT Family Medicine; ATTEND Family Medicine
DX: A41.9 Sepsis, unspecified organism (principal); J13 Pneumonia due to Streptococcus pneumoniae; J96.01 Acute respiratory failure with hypoxia; Z66 Do not resuscitate; Z20.822 Contact with and (suspected) exposure to COVID-19; I50.9 Heart failure, unspecified; R21 Rash and other nonspecific skin eruption; R65.20 Severe sepsis without septic shock; F03.90 Unspecified dementia, unspecified severity, without behavioral disturbance, psychotic disturbance, mood disturbance, and anxiety; I11.0 Hypertensive heart disease with heart failure; Z95.4 Presence of other heart-valve replacement; Z88.1 Allergy status to other antibiotic agents; Z88.8 Allergy status to other drugs, medicaments and biological substances; Z79.01 Long term (current) use of anticoagulants; Z90.49 Acquired absence of other specified parts of digestive tract; Z98.890 Other specified postprocedural states; Z79.899 Other long term (current) drug therapy
CPT/HCPCS: 36415; 71045; 80053; 81001; 83605; 83735; 83880; 84484; 85025; 85610; 87449; 87502; 87899; 93005; 93010; 94640; C9803; J0696; J1100; J1940; J1956; U0003

== ENCOUNTER 2022-07-01 14:46 | Inpatient (IN) | payer MEDICARE, OTHER ==
[~2022-07-01] VITALS: Ht 172.7 cm; Wt 108.0 kg
[~2022-07-01 14:46] MED LIST changes: +BENZONATATE200 MG PO; +LEVOFLOXACIN750 MG PO; +TYLENOL EXTRA500 MG PO
[2022-07-01] MEDS ORDERED: VITAMIN D310 MC4 PO (15:24)
[2022-07-01 18:12] VITALS: BP 134/55
--- NOTE | 2022-07-01 18:41 | NUR ---
Patient to the medical floor. Patient alert and oriented x4. Patient is on 2L oxygen per nc, respirations even and non labored. Vital signs are stable, afebrile. Patient oriented to room and call light.
--- NOTE | 2022-07-01 19:05 | NUR ---
BEDSIDE REPORT RECEIVED FROM CHARLIE JONES, PT AWAKE AND ALERT, DENIES REQUESTS AT THIS TIME, RESTING IN BED WATCHING TV.
--- NOTE | 2022-07-01 19:26 | NUR ---
RN CALLED TO ROOM BY PATIENT, PT DESIRES TO GO TO BR, STAND BY ASSIST GIVEN, OXYGEN REMAINS ON AT 2 L/MIN, TOLERATED AMBULATION WELL, VOIDED 150ML YELLOW URINE, DESIRES TO SIT IN RECYLINER, CALL LIGHT IN REACH.
--- NOTE | 2022-07-01 19:40 | NUR ---
TC RECEIVED FROM DR ALVARO MD STATES TELEMETRY NOT ORDERED FOR PT AND TELEMETRY MAYBE REMOVED AT THIS TIME, DISCUSSED WITH PT AND TELE REMOVED, PT REMAINS IN THE RECYLINER.
--- NOTE | 2022-07-01 20:12 | NUR ---
RN CALLED TO ROOM TO CLOSE CURTAINS, DONE, PT WITHOUT FURTHER REQUESTS.
[2022-07-01 21:05] VITALS: BP 128/51
--- NOTE | 2022-07-01 21:05 | NUR ---
PT AWAKE AND ALERT, VS AND ASSESSMENT COMPLETED, SL IN LEFT FA FLUSHES WELL, SITE INTACT, PT STATES HE DID NOT BRING HIS OWN MEDS WHICH IS A "MEMORY PILL", HE STATES HE WILL BE FINE NOT TAKING IT TONIGHT, PT CONCERNED THAT HE NORMALLY TAKES WARFARIN AND BABY ASA AT NIGHT, PLAN TO CHECK WITH MD, PT DESIRES TO STAY IN RECYLINER TO WATCH HIS BALL GAME ON TV.
--- NOTE | 2022-07-01 21:15 | NUR ---
PT STATES HE NORMALLY WEARS A CPAP AT HOME, WHEN DISCUSSED RT COULD SUPPLY A MACHINE FOR THE NIGHT, PT DECLINES AND STATES HE WILL BE FINE WITH THE OXYGEN IN PLACE, PT DENIES USING A CPAP AT THIS TIME.
--- NOTE | 2022-07-01 22:40 | NUR ---
PT RESTING QUIETLY ON LEFT SIDE, OXYGEN IN PLACE, AWAKENS EASILY, ORDERED WARFARIN GIVEN PER ORDER, PT WITHOUT FURTHER REQUESTS, RESTING QUIETLY.
--- NOTE | 2022-07-02 00:05 | NUR ---
REPORT RECEIVED FROM FLOAT NURSE THAT PT CALLED WITH C/O SOB, NOTED OXYGEN OFF, OXYGEN REPLACED AND PT ASSISTED UP TO RECLINER PER REQUEST.
--- NOTE | 2022-07-02 00:10 | NUR ---
PT FEELING BETTER, OXYGEN SATS ON 2L/NC NOW 96%, PT WITHOUT FURTHER REQUESTS.
--- NOTE | 2022-07-02 00:45 | NUR ---
RT INTO TALK WITH PT CONCERNING USE OF CPAP, PT DECLINES CPAP FOR TONIGHT, DESIRES TO KEEP OXYGEN AT 2L/NC TONIGHT. PT WITHOUT REQUESTS AT THIS TIME, CONTINUES SITTING UP IN RECYLINER.
--- NOTE | 2022-07-02 02:00 | NUR ---
FLOAT NURSE TO ROOM AT THIS TIME, PT AFEBRILE, I/O DONE, PT WITHOUT REQUESTS, RESTING.
--- NOTE | 2022-07-02 04:00 | NUR ---
PT SITTING UP IN THE CHAIR, REQUEST COFFEE, GIVEN. OXYGEN REMAINS IN PLACE.
[2022-07-02 04:23] VITALS: BP 128/48
--- NOTE | 2022-07-02 04:55 | NUR ---
PT SITTING UP IN CHAIR, LAB IN FOR AM BLOOD DRAW WITH RN ASSIST, PT WITHOUT COMPLAINTS.
--- NOTE | 2022-07-02 05:15 | NUR ---
PT CONTINUES TO SIT IN CHAIR, COFFEE GIVEN PER REQUEST, PT WITHOUT SOB, OXYGEN REMAINS ON.
--- NOTE | 2022-07-02 08:15 | NUR ---
Patient sitting up in chair, alert and oriented x4. Patient remains on 2L oxygen per nc, respirations non labored. Patient denies shortness of breath at rest. Morning medication pass and assessment completed at this time. Patient denies needs. Snack provided. Call light within reach of pt.
[2022-07-02 09:39] VITALS: BP 116/49
[2022-07-02] MEDS ORDERED: ADULT LOW DOSE81 MG PO (12:50)
--- NOTE | 2022-07-02 12:53 | NUR ---
medications reconciled using pharmacy records and patient interview
[2022-07-02 13:38] VITALS: BP 122/49
--- NOTE | 2022-07-02 15:06 | NUR ---
Patient up to the restroom at this time. Patient on room air, respirations non labored, sp02 96% at this time. Patient denies shortness of breath. No current needs, call light within reach.
--- NOTE | 2022-07-02 16:16 | NUR ---
PATIENT IS SITTING UP IN HIS CHAIR.
[2022-07-02 18:06] VITALS: BP 123/50
--- NOTE | 2022-07-02 19:01 | NUR ---
BEDSIDE REPORT RECEIVED FROM CHARLIE RN, PT ALERT AND CHEERFUL, VISITING WITH , PT SITTING IN RECYLINER, DENIES REQUESTS AT THIS TIME.
--- NOTE | 2022-07-02 19:50 | NUR ---
HOME THE NIGHT, PT IN ROOM WITHOUT REQUESTS.
[2022-07-02 20:15] VITALS: BP 137/57
--- NOTE | 2022-07-02 20:15 | NUR ---
PT AWAKE AND ALERT, VS AND ASSESSMENT DONE, SL FLUSHES WELL, RT MED GIVEN, RT INTO CHECK CPAP AND TO VISIT WITH PT, PT DENIES PAIN, ANXIOUS TO GO HOME. PT DECLINES HIS RIVASTIGMINE, STATES HE TOOK ONE EARILIER AND THAT SHOULD BE ENOUGH FOR TODAY.
--- NOTE | 2022-07-02 21:30 | NUR ---
PT ALERT, CPAP ON PER PT, RESTING IN BED, WITHOUT REQUESTS AT THIS TIME.
--- NOTE | 2022-07-02 23:45 | NUR ---
PT NOTED TO BE SITTING ON COUCH, UP TO BR TO VOID, YELLOW URINE, CPAP OFF PER PT, HE STATES "HE DIDN'T WANT TO MESS WITH IT RIGHT NOW", BACK TO RECYLINER, OXYGEN PLACED ON AT 2 L/NC WHILE SLEEPING, RT NOTIFED OF THIS. PT RESTING AND WITHOUT COMPLAINTS OR REQUESTS.
--- NOTE | 2022-07-03 00:45 | NUR ---
PT ASLEEP IN RECLYINER, AWAKEN FOR DOSE OF KCLOR 20MEQ PO, PT ALERT GIVEN WITH MILK AND CRACKER, PT WITHOUT REQUESTS, OXYGEN REMAINS IN PLACE, RESP EVEN AND REG.
--- NOTE | 2022-07-03 01:30 | NUR ---
PT APPEARS TO SLEEP, RESP EVEN AND REG, REMAINS IN RECLYLINER
--- NOTE | 2022-07-03 03:30 | NUR ---
PT ASLEEP IN RECYLINER, RESP NOTED, OXYGEN REMAINS IN PLACE.
[2022-07-03 05:35] VITALS: BP 124/59
--- NOTE | 2022-07-03 05:35 | NUR ---
PT UP TO BR WITH RN STANDBY, TOLERATED AMBULATION WELL, VOIDED 750ML, BACK TO RECYLINER, VS STABLE, ASSESSMENT DONE, PT REPORTS HE SLEPT VERY WELL, PT DRINKING COFFEE AND HOPEFUL HE IS ABLE TO GO HOME TODAY.
--- NOTE | 2022-07-03 05:38 | NUR ---
PT CALLED FOR COFFEE AND TO GO TO THE BATHROOM. HE WAS GIVEN COFFEE AND A SBA TOT HE BATHROOM. PT VOIDED 750 DARK YELLOW URINE. BATH BLANKET AND PILLOW COVERS ON HIS CHAIR WERE CHANGED. PT IS BACK IN HIS CHAIR. CALL LIGHT IS WITHIN REACH.
[2022-07-03 07:00] VITALS: BP 93/55
[2022-07-03 07:08] VITALS: BP 127/70
[2022-07-03 09:21] VITALS: BP 144/49
--- NOTE | 2022-07-03 09:50 | NUR ---
FULL BODY ASSESSMENT DONE, MORNING MEDICATIONS ADMINISTERED. BP WNL. PATIENT UP AMBULATING IN ROOM. STATES " I WOULD LIKE TO GO HOME TODAY" LUNG SOUNDS CLEAR IN UPPER LOBES AND DIMINISHED IN LOWER LOBES BILAT. PROVIDED AM CARE. NO OTHER NEEDS AT THIS TIME.
--- NOTE | 2022-07-03 10:07 | NUR ---
PATIENT AMBULATED IN HALLS, PATIENT VERBALIZED "I FEEL LIKE I AM BACK AT BASELINE" PATIENT ABLE TO CONVERSATE WHILE AMBULATING, NO REST BREAKS. BACK TO ROOM SPOT CHECK 02 SATURATION 96% ON RA. PATIENT BACK TO RECLINER RESTING, PROVIDED SNACK.
--- NOTE | 2022-07-03 11:50 | NUR ---
PATIENT RESTING BACK IN RECLINER WITH EYES CLOSED. APPEARS CALM WITH NO NEEDS AT THIS TIME. CALL LIGHT WTIHIN REACH.
[2022-07-03] MEDS ORDERED: COREG12.5 MG PO (12:01)
[2022-07-03] MEDS ORDERED: KLOR-CON 1010 MEQ PO (12:01)
[2022-07-03] MEDS ORDERED: TORSEMIDE10 MG PO (12:02)
[2022-07-03 13:30] VITALS: BP 140/75
--- NOTE | 2022-07-03 13:30 | NUR ---
PROVIDED PATIENT AND DISCHARGE INSTRUCTION. EDUCATED PATIENT WITH DIAGNOSIS OF CHF. PROVIDED EDUCATION FOLDER DISCUSSING DIET, DAILY WEIGHTS, BEING COMPLIANT WITH DIET. ALSO DISCUSSED PATHO PROCESS OF CHF. ANSWERED QUESTIONS AND CONCERNS. PROVIDED PATIENT WHEELCHAIR RIDE TO FRONT. PATIENT TRANSFERED INTO [facility] STEADY ON FEET. PATIENT BELONGINGS PLACED IN BACK SEAT OF CAR.
--- NOTE | 2022-07-03 16:42 | EKG ---
[facility] [address] [facility] [place] [address] Signed Normal sinus rhythm Normal ECG No previous ECGs available Confirmed by RAQUEL JOHN MD ([id number]) on 07/03/2022 4:42:25 PM Electronically Signed By: RAQUEL JOHN MD 07/03/222 PATIENT NAME: ARTUR TOLLIVER Electrocardiogram DATE OF : 38 PHYSICIAN: RAQUEL JOHN MD REPORT #: [id number] REPORT IS CONFIDENTIAL AND NOT TO BE RELEASED WITHOUT AUTHORIZATION
== END 2022-07-03 13:30 | disposition home or self-care (01) | DRG 291 ==
LOC: ED 14:46 → MS 17:04
PROVIDERS: ADMIT Internal Medicine; ATTEND Internal Medicine
DX: I11.0 Hypertensive heart disease with heart failure (principal); I50.33 Acute on chronic diastolic (congestive) heart failure; J96.01 Acute respiratory failure with hypoxia; I71.019 Dissection of thoracic aorta, unspecified; R78.81 Bacteremia; K76.89 Other specified diseases of liver; N40.0 Benign prostatic hyperplasia without lower urinary tract symptoms; F32.9 Major depressive disorder, single episode, unspecified; G30.9 Alzheimer's disease, unspecified; G47.33 Obstructive sleep apnea (adult) (pediatric); I48.91 Unspecified atrial fibrillation; E79.0 Hyperuricemia without signs of inflammatory arthritis and tophaceous disease; K46.9 Unspecified abdominal hernia without obstruction or gangrene; F02.80 Dementia in other diseases classified elsewhere, unspecified severity, without behavioral disturbance, psychotic disturbance, mood disturbance, and anxiety; F39 Unspecified mood [affective] disorder; Z20.822 Contact with and (suspected) exposure to COVID-19; Z88.8 Allergy status to other drugs, medicaments and biological substances; Z88.1 Allergy status to other antibiotic agents; Z91.041 Radiographic dye allergy status; Z79.899 Other long term (current) drug therapy; Z79.01 Long term (current) use of anticoagulants; Z79.82 Long term (current) use of aspirin; Z95.4 Presence of other heart-valve replacement; Z95.2 Presence of prosthetic heart valve; Z90.49 Acquired absence of other specified parts of digestive tract; Z98.890 Other specified postprocedural states; Z87.19 Personal history of other diseases of the digestive system
CPT/HCPCS: 36415; 71045; 80048; 80053; 83605; 83735; 83880; 85025; 85610; 93005; 93010; 94760; 96374; 99285-25; A9270; C9803; J1940; U0003

== ENCOUNTER 2023-09-05 08:39 | Day surgery (SDC) | payer MEDICARE ==
[~2023-09-05 08:39] MED LIST changes: +CEFAZOLIN SODIUM 2 GM/20 ML SYR IV SCH; +VITAMIN D310 MC4 PO
--- NOTE | 2023-09-07 14:09 | OR ---
[facility] [address] [place], [place] [address] Signed DATE OF OPERATION: 09/05/2023 SURGEON: Maliha Emmaneul MD PREOPERATIVE DIAGNOSES: 1. Left breast mass, probable gynecomastia, BI-RADS category 4. 2. Family history of breast cancer. POSTOPERATIVE DIAGNOSES: 1. Left breast mass, probable gynecomastia, BI-RADS category 4. 2. Family history of breast cancer. PROCEDURE: Ultrasound-guided core biopsy, left breast upper inner aspect 10 o'clock position. HISTORY: This 83-year-old white man is a patient of Dr. Kelvin Theodore. In 2019, he had left-sided breast mass, which was asymptomatic with smooth margin on CT scan. Review of the operative report from June 20, 2019 confirmed the mass to be in the central portion of the breast and biopsy of the 4 cm mass was benign and described as fat necrosis with mild chronic inflammation and reactive changes negative for malignancy. Additionally, in November of 2017, he had benign findings of left mass based on the CT scan. The patient was noted to have enlargement of the mass and he underwent mammography on August 09, 2023, showing a BI-RADS category 4 suspicious abnormality of the left breast. He is asymptomatic generally though the nipple is sometimes uncomfortable for him. Clinical exam shows no discrete mass and the texture of the breast is highly consistent with benign gynecomastia. He has numerous medical problems including history of aortic valve replacement requiring chronic anticoagulation with Coumadin. 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 He is admitted at this time to undergo ultrasound-guided core biopsy of the left breast to assess for malignancy (unlikely) as well as plans likely for resection of the gynecomastia in the future. The patient has been on bridge therapy to allow for biopsy today. FINDINGS: Ultrasound showed breast tissue which was relatively bland and uniform. This was most consistent with gynecomastia. Core biopsies were obtained, good specimens were obtained and the patient tolerated the procedure well. DESCRIPTION OF PROCEDURE: Electronically Signed By: MALIHA EMMANUEL MD 09/07/23 1409 PATIENT NAME: ARTUR TOLLIVER OPERATIVE REPORT DATE OF : 38 REPORT #: [id number] PHYSICIAN: MALIHA EMMANUEL MD PCP: KELVIN THEODORE MD REPORT IS CONFIDENTIAL AND NOT TO BE RELEASED WITHOUT AUTHORIZATION [facility] [address], [place] [address] Signed The patient was placed in the semirecumbent position. The left breast was palpated showing no dominant mass, only bulkiness of the left breast. The area was prepared with a chlorhexidine solution and draped sterilely. Using the SonK[employer]pyte. ultrasound device, the parenchyma of the breast was more fully evaluated showing findings suggestive of bland breast tissue. 0.25% Marcaine with epinephrine was injected in the superior aspect of the left breast. Under ultrasound guidance, a branch service representative area of the parenchyma of the breast was identified and core biopsy was undertaken x4 with a 14-gauge biopsy gun type device. The cores were placed in Telfa and passed for permanent pathology. Pressure was applied to the operative site. There was no untoward bleeding. A Band-Aid was applied. Maliha Emmanuel MD JM/MODL /[id number] cc: Kelvin Theodore MD Copies: KELVIN THEODORE MD ~ Electronically Signed By: MALIHA EMMANUEL MD 09/07/23 1409 PATIENT NAME: ARTUR TOLLIVER OPERATIVE REPORT DATE OF : 38 REPORT #: [id number] PHYSICIAN: MALIHA EMMANUEL MD PCP: KELVIN THEODORE MD REPORT IS CONFIDENTIAL AND NOT TO BE RELEASED WITHOUT AUTHORIZATION
--- NOTE | 2023-09-08 14:46 | PATH ---
[facility] [address] [facility] [place], [place] [address] Signed SPECIMEN(S): A LEFT BREAST MEDIAL SUPERIOR BIOPSY SPECIMEN SOURCE: A. LEFT BREAST MEDIAL SUPERIOR BIOPSY CLINICAL HISTORY: Family history of breast cancer FINAL PATHOLOGIC DIAGNOSIS: Breast, left medial superior, needle core biopsy: - Low-grade spindle cell lesion, most consistent with mammary type myofibroblastoma, see comment COMMENT: By immunohistochemistry, the lesional cells are positive for CD34, desmin, and ER, and negative for AE1/AE3, and S100, supporting the above interpretation. As part of [facility]' Quality Improvement Program, this case was reviewed by another member of our pathology staff. P MICROSCOPIC EXAMINATION: Histologic sections of all submitted blocks are examined by light microscopy. These findings, together with the gross examination, support the pathologic diagnosis. GROSS DESCRIPTION: The specimen, labeled and designated "Leasy, left breast medial superior biopsy," is received in formalin and consists of multiple cores and fragments of pink-white to red-brown soft tissue (0.1-2.3 cm in greatest dimension). The tissue is stained with eosin, and the specimen is submitted entirely in cassette (A1). Cold ischemic time: Cannot be calculated Formalin fixation time: More than 6 hours and less than 24 hours VB (under the direct supervision of a pathologist) The Gross Description was prepared using a voice recognition system. The report was reviewed for accuracy; however, sound-alike word errors, addition and/or deletions may occur. If there is any question about this report, please contact Client Services. ADDITIONAL NOTES: Immunohistochemical and/or in situ hybridization studies if performed in this PATIENT NAME: ARTUR TOLLIVER PATHOLOGY DATE OF : 38 REPORT #: [id number] PHYSICIAN: RADHA SANTOS PCP: SARMAD GONZALEZ MD REPORT IS CONFIDENTIAL AND NOT TO BE RELEASED WITHOUT AUTHORIZATION [facility] [address] [facility] [place] [address] Signed case included appropriate positive controls that reacted as expected. This test was developed and its performance characteristics determined by [facility]. It has not been cleared or approved by the U.S. Food and Drug Administration. The FDA has determined that such clearance or approval is not necessary. This test is used for clinical purposes. It should not be regarded as investigational or for research. [facility] is certified under the Clinical Laboratory Improvement Amendments of 1988 (CLIA) as qualified to perform high complexity clinical laboratory testing. PERFORMING LABORATORY: Technical component was performed by [facility], [address] [place] [address] (CLIA# [id number]). Professional interpretation was performed by [facility] [address] [place] [phone] [id number] Diagnostician: Sam Dwyer MD Pathologist Electronically Signed 09/08/2023 Copies: ~ PATIENT NAME: ARTUR TOLLIVER PATHOLOGY DATE OF : 38 REPORT #: [id number] PHYSICIAN: RADHA SANTOS PCP: SARMAD GONZALEZ MD REPORT IS CONFIDENTIAL AND NOT TO BE RELEASED WITHOUT AUTHORIZATION
== END 2023-09-05 10:36 | disposition home or self-care (01) ==
LOC: OPS 08:39 → DS 08:39 → OPS 10:00 → DS 10:00 → OPS 10:36 → DS 11:15
PROVIDERS: ATTEND Surgery
DX: D24.2 Benign neoplasm of left breast (principal); Z80.3 Family history of malignant neoplasm of breast; I11.0 Hypertensive heart disease with heart failure; I50.9 Heart failure, unspecified; I71.019 Dissection of thoracic aorta, unspecified; G31.83 Neurocognitive disorder with Lewy bodies; E66.01 Morbid (severe) obesity due to excess calories; Z88.1 Allergy status to other antibiotic agents; Z79.01 Long term (current) use of anticoagulants; Z79.899 Other long term (current) drug therapy

== ENCOUNTER 2024-03-19 09:14 | Emergency (ER) | payer MEDICARE ==
[~2024-03-19] VITALS: Ht 172.7 cm; Wt 105.2 kg
[~2024-03-19 09:14] MED LIST changes: -CEFAZOLIN SODIUM 2 GM/20 ML SYR IV SCH; +CIPROFLOXACIN750 MG PO; +ENOXAPARIN40 MG/0.4 SUB-Q; +FLUTICASONE PRO16 GM NAS; +OXYCODON-ACETA1 EAC2 PO; +PROBIOTIC1 EAC1 PO; +SERTRALINE HCL50 MG PO
[2024-03-19] MEDS ORDERED: BENZONATATE100 MG PO (09:30)
[2024-03-19] MEDS ORDERED: FEROSUL325 MG PO (09:31)
[2024-03-19] MEDS ORDERED: K-TAB ER20 MEQ PO (09:32)
[2024-03-19] MEDS ORDERED: TOPIRAMATE ER25 M1 PO (09:33)
[2024-03-19] MEDS ORDERED: TORSEMIDE10 MG PO (09:35)
[2024-03-19 09:54] LABS: BASOPHILS 0.3 % (0-2); EOSINOPHILS 3.5 % (0-6); HEMATOCRIT 37.2 % (35.0-50.0); HEMOGLOBIN 12.1 g/dL (12.0-18.0); LYMPHOCYTES 18.5 % (24-44); MCH 28.7 (27-36); MCHC 32.4 g/dl (30-36); MCV 88.4 fl (81-99); MONOCYTES 8.5 % (0-12); NEUTROPHILS 69.2 % (39-80); PLATELET COUNT 135 K/uL (140-440); RBC 4.21 M/ul (4.3-5.7); RDW 18.1 (10.5-15.0)
[2024-03-19 10:05] LABS: INR 3.51 (0.80-1.30); PROTIME 35.5 Sec (11.2-14.2)
[2024-03-19 10:16] LABS: ALBUMIN 3.2 g/dL (3.4-5.0); ALBUMIN/GLOBULIN RATIO 0.86 (1.1-2.4); ANION GAP 8.1 (7-21); BILIRUBIN, TOTAL 0.4 ng/dL (0.2-1.0); BUN/CREATININE RATIO 18.08 (6.0-28.6); CALCIUM 9.5 mg/dL (8.5-10.1); CREATININE, SERUM 0.94 mg/dL (0.70-1.30); POTASSIUM 4.1 mmol/L (3.5-5.1); PROTEIN, TOTAL 6.9 g/dL (6.4-8.2)
[2024-03-19] MEDS ORDERED: DOXYCYCLINE HYCLATE 100 MG CAP PO ONE (10:45)
[2024-03-19] MEDS ORDERED: DOXYCYCLINE HY100 MG PO (10:47)
[2024-03-19 10:55] VITALS: BP 146/72
== END 2024-03-19 10:56 | disposition home or self-care (01) ==
LOC: ED 09:14
PROVIDERS: Emergency Medicine
DX: J40 Bronchitis, not specified as acute or chronic (principal); I10 Essential (primary) hypertension; F03.90 Unspecified dementia, unspecified severity, without behavioral disturbance, psychotic disturbance, mood disturbance, and anxiety; Z95.2 Presence of prosthetic heart valve; Z88.1 Allergy status to other antibiotic agents; Z88.8 Allergy status to other drugs, medicaments and biological substances; Z91.041 Radiographic dye allergy status; Z79.01 Long term (current) use of anticoagulants; Z79.899 Other long term (current) drug therapy
CPT/HCPCS: 36415; 71045; 80053; 83880; 85025; 85610; 99283-25